=== PATIENT | male | born 1950 | race Two or more races ===

== ENCOUNTER 2017-12-24 23:07 | Inpatient (IN) | payer MEDICARE, MEDICAID ==
[2017-12-24 23:10] VITALS: BMI 41.9
--- NOTE | 2017-12-24 23:22 | ED PDOC ---
Arrival/HPI - General Chief Complaint: Chest Pain Time Seen by Provider: 12/24/17 23:08 Historian: Patient - History of Present Illness Narrative History of Present Illness (Text): 12/24/17 23:22 67 year old male whose past medical history include CAD, Coronary Artery bypass , multiple stents, hypertension, and diabetes, presents to the emergency department with complaints of chest and upper back pain that began today. Patient appears to be having some component of worsening chest discomfort with movement.Pt. with intermittent cough whitish sputum.States hx. of vertebral herniated discs.Patient denies any history of trauma, fever, chills, shortness of breath, nausea, abdominal pain, vomiting, diarrhea, neck pain, leg pain, headache, dizziness, or any other complaints. Time/Duration: Other (today ) Symptom Onset: Sudden Symptom Course: Unchanged Activities at Onset: Light Context: Home Past Medical History - Provider Review Nursing Documentation Reviewed: Yes - Cardiac Hx Cardiac Disorders: Yes Hx Hypertension: Yes - Pulmonary Hx Respiratory Disorders: No - Endocrine/Metabolic Hx Diabetes Mellitus Type 1: Yes - Psychiatric Hx Substance Use: No - Surgical History Hx Cardiac Catheterization: Yes Hx Coronary Artery Bypass Graft: Yes Hx Coronary Stent: Yes (7) Hx Orthopedic Surgery: Yes - Anesthesia Hx Anesthesia: Yes Family/Social History - Physician Review Nursing Documentation Reviewed: Yes Family/Social History: No Known Family HX Smoking Status: Heavy Smoker > 10 Cigarettes Daily Hx Alcohol Use: No Hx Substance Use: No Allergies/Home Meds Allergies/Adverse Reactions: Allergies No Known Allergies Allergy (Unverified 12/24/17 23:21) Home Medications: Home Meds Medication Instructions Recorded Confirmed Albuterol HFA [Ventolin HFA 90 2 puff IH [id number] 12/24/17 12/24/17 mcg/actuation (8 g)] Bisoprolol [Zebeta] 10 mg PO DAILY 12/24/17 12/24/17 Carvedilol [Coreg] 12.5 mg PO DAILY 12/24/17 12/24/17 Clopidogrel [Plavix] 75 mg PO DAILY 12/24/17 12/24/17 Dutasteride [Avodart] 0.5 mg PO DAILY 12/24/17 12/24/17 Gabapentin [Neurontin] 300 mg PO DAILY 12/24/17 12/24/17 Glimepiride [amaRYL] 4 mg PO DAILY 12/24/17 12/24/17 MetFORMIN [glucoPHAGE] 1,000 mg PO DAILY 12/24/17 12/24/17 Sulindac 150 mg PO DAILY 12/24/17 12/24/17 Tamsulosin [Flomax] 0.4 mg PO DAILY 12/24/17 12/24/17 Umeclidinium [place] [Incruse 62.5 mcg PO DAILY 12/24/17 12/24/17 Ellipta] Valsartan [Diovan] 160 mg PO DAILY 12/24/17 12/24/17 Review of Systems - Physician Review All systems were reviewed & negative as marked: Yes - Review of Systems Constitutional: absent: Fevers, Other (Chills) Respiratory: absent: SOB Cardiovascular: Chest Pain Gastrointestinal: absent: Abdominal Pain, Diarrhea, Nausea, Vomiting Musculoskeletal: Back Pain. absent: Neck Pain, Other (leg pain) Neurological: absent: Headache, Dizziness Physical Exam Vital Signs Reviewed: Yes Vital Signs Temp Pulse Resp BP Pulse Ox 12/25/17 01:20 97.9 F 85 16 136/82 100 12/24/17 23:32 134/75 12/24/17 23:20 95 H 16 154/75 H 99 12/24/17 23:14 97 H 20 134/75 98 Blood Pressure: Normal Pulse: Regular Respiratory Rate: Normal Appearance: Positive for: Well-Appearing, Non-Toxic, Comfortable Pain Distress: None Mental Status: Positive for: Alert and Oriented X 3 - Systems Exam Head: Present: Atraumatic, Normocephalic Pupils: Present: PERRL Extroacular Muscles: Present: EOMI Conjunctiva: Present: Normal Mouth: Present: Moist Mucous Membranes Neck: Present: Normal Range of Motion Respiratory/Chest: Present: Clear to Auscultation, Good Air Exchange. No: Respiratory Distress, Accessory Muscle Use, Tender to Palpation Cardiovascular: Present: Regular Rate and Rhythm, Normal S1, S2. No: Murmurs Abdomen: Present: Normal Bowel Sounds. No: Tenderness, Distention, Peritoneal Signs Back: Present: Normal Inspection Upper Extremity: Present: Normal Inspection. No: Cyanosis, Edema Lower Extremity: Present: Normal Inspection. No: Edema, CALF TENDERNESS Neurological: Present: GCS=15, CN II-XII Intact, Speech Normal Skin: Present: Warm, Dry, Normal Color. No: Rashes Psychiatric: Present: Alert, Oriented x 3, Normal Insight, Normal Concentration Medical Decision Making ED Course and Treatment: 12/24/17 23:22 Impression: 67 year old male presents complaining of chest and back pain that began today. Plan: -- EKG -- Labs -- Chest X-ray -- O2 Nasal Cannula -- Urinalysis -- Reassess and disposition Progress Notes: EKG shows NSR at 96 BPM with PVC. Inferior and anterior juarez infarct. Age undetermined. Interpreted by me. 12/25/17 00:16 CXR Impression: As read by me, cardiomegaly. No acute processes. EXAM: CT Angiography Chest With Intravenous Contrast Dictated and Authenticated by: Clifton Bajwa MD 12/25/2017 2:19 AM IMPRESSION: 1. There is no evidence for central pulmonary embolus. The segmental and subsegmental branch pulmonary arteries are degraded by motion artifact. 2. Mild parabronchial cuffing, which can be seen with bronchitis, reactive airway disease or viral pneumonitis versus mild failure. Bibasilar right mid lobe and lingula nonspecific infiltrates are present, consistent with atelectasis or pneumonia. 12/25/17 02:[address] Dick who is aware and agrees with the plan. Accepts patient into her service with Dr. Simental under consults. - Lab Interpretations Lab Results: 12/24/17 23:30 12/24/17 23:30 Lab Results 12/24/17 23:30: Sodium 141, Potassium 4.5, Chloride 100, Carbon Dioxide 27, Anion Gap 18, BUN 14, Creatinine 0.7 L, Est GFR ( Amer) > 60, Est GFR ( Non-Af Amer) > 60, Random Glucose 115 H, Calcium 9.6, Total Bilirubin 0.4, AST 25, ALT 39, Alkaline Phosphatase 79, Lactate Dehydrogenase 440, Total Creatine Kinase 72, Troponin I < 0.01, Total Protein 7.3, Albumin 4.1, Globulin 3.2, Albumin/Globulin Ratio 1.3 12/24/17 23:30: PT 11.8, INR 1.03, APTT 30.3 12/24/17 23:30: WBC 12.2 H, RBC 4.27, Hgb 13.6 L, Hct 40.3 L, MCV 94.4, MCH 31.9 , MCHC 33.7, RDW 13.4, Plt Count 300, MPV 9.8, Gran % 75.9 H, Lymph % (Auto) 13.9 L, [place] % (Auto) 8.0 H, Eos % (Auto) 2.0, Baso % (Auto) 0.2, Gran # 9.25 H , Lymph # (Auto) 1.7, [place] # (Auto) 1.0 H, Eos # (Auto) 0.3, Baso # (Auto) 0.02 12/24/17 00:15: Urine Color Yellow, Urine Appearance Clear, Urine pH 6.0, Ur Specific [place] 1.020, Urine Protein Negative, Urine Glucose (UA) Negative, Urine Ketones Negative, Urine Blood Trace-lysed H, Urine Nitrate Negative, Urine Bilirubin Negative, Urine Urobilinogen 0.2, Ur Leukocyte Esterase Negative , Urine RBC 1 - 3, Urine WBC 0 - 2, Ur Epithelial Cells 0 - 2, Urine Bacteria Few I have reviewed the lab results: Yes - RAD Interpretation Radiology Orders: 12/24/17 23:22 CHEST PORTABLE [RAD] Stat 12/25/17 00:17 ANGIO CHEST PE PROTOCOL [CT] Stat - EKG Interpretation Interpreted by ED Physician: Yes Type: 12 lead EKG - Medication Orders Current Medication Orders: Ceftriaxone Sodium (Rocephin 1 Gram Ivpb) 1 gm in 100 mls @ 200 mls/hr IV ONCE STA PRN Reason: Protocol Stop: 12/25/17 03:02 Azithromycin (Zithromax 500mg In Ns) 500 mg in 250 mls @ 166.667 mls/hr IV STAT STA PRN Reason: Protocol Stop: 12/25/17 04:02 Discontinued Medications Morphine Sulfate (Morphine) 4 mg IVP STAT STA Stop: 12/24/17 23:32 Last Admin: 12/24/17 23:35 Dose: 4 mg [facility] Pain Assessment Document 12/24/17 23:35 MS (Rec: 12/24/17 23:36 [place] [id number] Pain Reassessment Is this a pain reassessment? No Sleep Is patient sleeping during reassessment? No Presence of Pain Presence of Pain Yes Pain Scale Used Pain Scale Used Numeric Location Upper or Lower Lower Pain Location Body Site Chest Back Description Description Constant Intensity of Pain at present 10 Pain Behavior Moaning Guarding Facial Grimacing IVP Administration Document 12/24/17 23:35 MS (Rec: 12/24/17 23:36 [place] [facility] [id number] Charges for Administration # of IVP Administrations 1 Re-Assess: SARAH Pain Assessment Document 12/25/17 00:27 MS (Rec: 12/25/17 00:27 MS [id number] Pain Reassessment Is this a pain reassessment? Yes Sleep Is patient sleeping during reassessment? No Presence of Pain Presence of Pain No - Scribe Statement The provider has reviewed the documentation as recorded by the Scribe Soledad Mayfield Provider Scribe Attestation: All medical record entries made by the Scribe were at my direction and personally dictated by me. I have reviewed the chart and agree that the record accurately reflects my personal performance of the history, physical exam, medical decision making, and the department course for this patient. I have also personally directed, reviewed, and agree with the discharge instructions and disposition. Disposition/Present on Arrival - Present on Arrival Any Indicators Present on Arrival: No History of DVT/PE: No History of Uncontrolled Diabetes: No Urinary Catheter: No History of Decub. Ulcer: No History Surgical Site Infection Following: None - Disposition Have Diagnosis and Disposition been Completed?: Yes Diagnosis: Chest pain, Back pain, Pneumonia Disposition: HOSPITALIZED Disposition Time: 02:35 Patient Plan: Admission Patient Problems: Current Active Problems Problem Status Onset Back pain Acute Chest pain Acute Pneumonia Acute Condition: STABLE Discharge Instructions (ExitCare): Chest Pain (ED) Referrals: Diego Gustafson MD [Primary Care Provider] - Follow up with primary Forms: [employer] (Japanese)
[2017-12-24] MEDS ORDERED: Morphine 4 mg/ml ISec IVP STA (23:31)
[2017-12-24] MEDS ORDERED: Morphine 4 mg/ml ISec ONE (23:35)
[2017-12-24 23:39] LABS: BASO # 0.02 K/mm3 (0.0-2.0); BASO % 0.2 % (0.0-3.0); EOS # 0.3 (0.0-0.7); GRAN # 9.25 (1.4-6.5); GRAN % 75.9 % (50.0-68.0); HEMOGLOBIN 13.6 g/dL (14.0-18.0); LYMPH # 1.7 (1.2-3.4); LYMPH % 13.9 % (22.0-35.0); MEAN CELL VOLUME 94.4 fl (80.0-105.0); MEAN CORPUSCULAR HEMOGLOBIN 31.9 pg (25.0-35.0); MEAN CORPUSCULAR HGB CONC 33.7 g/dl (31.0-37.0); MEAN PLATELET VOLUME 9.8 fl (7.0-11.0); RBC 4.27 10^6/uL (3.5-6.1); RED CELL DISTRIBUTION WIDTH 13.4 % (11.5-14.5); WHITE BLOOD COUNT 12.2 10^3/ul (4.5-11.0)
[2017-12-24 23:46] LABS: ALB/GLOB RATIO 1.3 (1.1-1.8); ALBUMIN 4.1 g/dL (3.0-4.8); ALT/SGPT 39 U/L (7-56); AST/SGOT 25 U/L (17-59); BLOOD UREA NITROGEN 14 mg/dL (7-21); CALCIUM 9.6 mg/dL (8.4-10.5); GFR AFRICAN-AMERICAN > 60; GFR NON-AFRICAN AMERICAN > 60
[2017-12-24 23:57] LABS: TROPONIN I < 0.01 ng/mL
[2017-12-25 00:22] LABS: INR 1.03 (0.93-1.08); PROTHROMBIN TIME 11.8 SECONDS (9.4-12.5)
[2017-12-25 00:23] LABS: PARTIAL THROMBOPLASTIN TIME 30.3 Seconds (25.1-36.5)
[2017-12-25] MEDS ORDERED: Iodixanol 320 MG/ML 100 ML BOTTLE IV ONE (00:33)
[2017-12-25 00:41] LABS: URINE BILIRUBIN NEGATIVE (NEGATIVE); URINE BLOOD TRACE-LYSED (NEGATIVE); URINE GLUCOSE (UA) NEGATIVE (NEGATIVE); URINE LEUKOCYTE ESTERASE NEGATIVE Leu/uL (NEGATIVE); URINE NITRATE NEGATIVE (NEGATIVE); URINE PROTEIN NEGATIVE mg/dL (<30 mg/dL); URINE UROBILINOGEN 0.2 E.U./dL (<1 E.U./dL)
[2017-12-25 00:55] LABS: URINE APPEARANCE CLEAR (CLEAR); URINE COLOR YELLOW (YELLOW)
[2017-12-25 01:07] LABS: URINE BACTERIA FEW (NEG); URINE EPITHELIAL CELLS 0 - 2 /hpf (0-5); URINE WBC 0 - 2 /hpf (0-6)
--- NOTE | 2017-12-25 02:19 | CT ---
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 All CT scans at this facility use one or more dose reduction techniques, viz.: automated exposure control; ma/kV adjustment per patient size (including targeted exams where dose is matched to indication; i.e. head); or iterative reconstruction technique. 1078 images are submitted. MIP reconstructed images were created and reviewed. Coronal and sagittal reformatted images were created and reviewed. CONTRAST: 100 mL of visipaque 320 administered intravenously. COMPARISON: DX - CHEST PORTABLE 2017-12-24 23:27 FINDINGS: Artifacts: Limited due to motion and misregistration artifacts.Limited due to pulsation artifact. Pulmonary arteries: There is no evidence for central pulmonary embolus. The segmental and subsegmental branch pulmonary arteries are degraded by motion artifact and heterogeneous enhancement. Aorta: The aorta demonstrates calcified plaque and is mildly ectatic but normal in caliber. No thoracic aortic aneurysm. 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 Lungs: Mild parabronchial cuffing, which can be seen with bronchitis, reactive airway disease or viral pneumonitis versus mild failure. Bibasilar right mid lobe and lingula nonspecific infiltrates are present, consistent with atelectasis or pneumonia. 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 COPD. No mass. Pleural space: Unremarkable. No significant effusion. No pneumothorax. Heart: Cardiomegaly. Mediastinum: Small hiatal hernia. Thyroid: Mild enlargement of thyroid gland without focal thyroid nodules. Bones/joints: There are sternal wires consistent with previous sternotomy incision. Degenerative changes within the spine. No acute fracture. No dislocation. Multilevel vacuum degenerative disc disease. Soft tissues: Bilateral gynecomastia. Lymph nodes: Right hilar lymph nodes. Liver: Enlarged fatty liver. Adrenals: Nonspecific left adrenal gland thickening. Normal right adrenal gland. Stomach and bowel: There is stool like appearance to the distal small bowel. This may represent slow transit. Moderate amount of stool is seen in the colon. IMPRESSION: 1. There is no evidence for central pulmonary embolus. The segmental and subsegmental branch pulmonary arteries are degraded by motion artifact. 2. Mild parabronchial cuffing, which can be seen with bronchitis, reactive airway disease or viral pneumonitis versus mild failure. Bibasilar right mid lobe and lingula nonspecific infiltrates are present, consistent with atelectasis or pneumonia.
[2017-12-25] MEDS ORDERED: cefTRIAXone 1 gm 1 GM/100 ML BAG IV STA (02:33)
[2017-12-25] MEDS ORDERED: Azithromycin 500MG/NS 250ml 500 MG/250 ML BAG IV STA (02:33)
[2017-12-25] MEDS ORDERED: HYDROmorphone 0.5 mg/0.5 ml ISec IVP STA (03:19)
--- NOTE | 2017-12-25 08:33 | CARD ---
APPROVED REPORT EKG Measurement Heart [id number] <Conclusion> Sinus rhythm with PVCs IMI, age unknown PRWP NSSTW changes No change
--- NOTE | 2017-12-25 09:54 | RAD ---
HISTORY: Chest pain COMPARISON: Correlation made with subsequent CTA chest. FINDINGS: LUNGS: Mild bibasilar atelectasis. . PLEURA: No significant pleural effusion identified, no pneumothorax apparent. Sternotomy wires. Cardiomegaly. Aorta ectatic and uncoiled. CARDIOVASCULAR: Sternotomy wires. Cardiomegaly. Aorta ectatic and uncoiled. OSSEOUS STRUCTURES: No significant abnormalities. VISUALIZED UPPER ABDOMEN: Normal. OTHER FINDINGS: None. IMPRESSION: Mild bibasilar atelectasis. Cardiomegaly.
[2017-12-25] MEDS ORDERED: Non Formulary Medication (Bisoprolol [Zebeta] 10 mg) PO SCH ×2 (10:00)
[2017-12-25] MEDS ORDERED: Non Formulary Medication (Valsartan [Diovan] 160 MG) PO SCH (10:00)
[2017-12-25] MEDS ORDERED: SULINDAC 150 MG PO SCH (10:00)
[2017-12-25] MEDS: SULINDAC 150 MG PO SCH (10:30)
[2017-12-25] MEDS ORDERED: Oxycodone/Acetaminophen 5/325 mg Tab PO PRN (10:41)
[2017-12-25] MEDS: Naproxen 550 mg Tab PO SCH ×2 (11:17→17:48)
[2017-12-25] MEDS: Insulin Lispro (HUMAlog) HIGH Coverage SC SCH ×2 (16:40→21:41)
--- NOTE | 2017-12-25 17:35 | CT ---
PROCEDURE: CT scan of the brain dated 12/25/2017. HISTORY: Weakness COMPARISON: No prior study available for comparison TECHNIQUE: Axial computed tomography images were obtained through the head/brain without intravenous contrast. Radiation dose: Total exam DLP = 889.15 mGy-cm. This CT exam was performed using one or more of the following dose reduction techniques: Automated exposure control, adjustment of the mA and/or kV according to patient size, and/or use of iterative reconstruction technique. FINDINGS: HEMORRHAGE: No acute parenchymal, subarachnoid or extra-axial hemorrhage. BRAIN: There may be some minimal chronic periventricular white matter ischemic changes. . No evidence of obvious parenchymal nor extra-axial mass or collection. VENTRICLES: No obstructive hydrocephalus. CALVARIUM: Calvarium appears grossly intact PARANASAL SINUSES: Unremarkable as visualized. No significant inflammatory changes. MASTOID AIR CELLS: Unremarkable as visualized. No inflammatory changes. OTHER FINDINGS: None. IMPRESSION: No evidence of acute intracranial hemorrhage. Suspect minimal chronic periventricular white matter ischemic changes.
--- NOTE | 2017-12-25 19:33 | CON ---
DATE: 12/25/2017 LOCATION: Room 372, bed 2. REASON FOR CONSULTATION: Coronary artery disease, history of coronary artery bypass surgery with back pain, hypertension, diabetes, obesity, history of vertebral herniated disc, history of sleep apnea. HISTORY OF PRESENT ILLNESS: A 67-year-old obese male admitted with the history that he is having severe pain on the back on the right side. He is very uncomfortable sitting. He also has marked tenderness on the back. Patient is very uncomfortable sitting and denies any chest pain, denies shortness of breath, denies any nausea or vomiting. Denies any prior history of external chest pain. He is known to have coronary artery bypass surgery, hypertension, diabetes, obesity, history of vertebral herniated disk, sleep apnea. Patient sees Dr. 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 He follows with him regularly. PAST MEDICAL HISTORY: Positive for coronary artery disease, CABG in 1998, hypertension, diabetes, obesity, history of vertebral herniated disk, sleep apnea. PERSONAL HISTORY: He smokes 15 cigarettes a day. Denies drinking. ALLERGIES: DENIES ANY ALLERGIES. FAMILY HISTORY: Positive for coronary artery disease. HOME MEDICATIONS: Included Neurontin 300 mg daily, Plavix 75 mg daily, Coreg 12.5 mg daily, Zebeta 10 mg daily, Avodart 0.5 mg p.o. daily, Flomax 0.4 mg daily, sulindac 150 mg p.o. daily, metformin 1000 mg p.o. daily, Amaryl 4 mg daily, Diovan 160 mg p.o. daily. REVIEW OF SYSTEMS: All the systems are reviewed, positive mentioned in the history, otherwise negative. PHYSICAL EXAMINATION VITAL SIGNS: Blood pressure 123/77, respirations 20, pulse 86, temperature 98.7. HEENT: Head is normocephalic. Eyes: Pupils are normal. Conjunctivae are normal. Nose and throat are normal. NECK: JVP low. Carotids are equal. THORAX: AP diameter normal. LUNGS: Clear. CARDIOVASCULAR: S1 and S2. ABDOMEN: Soft. No tenderness. No organomegaly. EXTREMITIES: No clubbing. No cyanosis. LABORATORY DATA: WBC 12.2, hemoglobin 13.6, hematocrit 40.3, platelet 300. Sodium 141, potassium 4.5, BUN 14, creatinine 0.7, random glucose 115. AST and ALT normal. Troponin less than 0.01. Total protein 7.3, albumin 4.51. EKG showed sinus rhythm, PVC, poor progression of R and V leads, nonspecific ST-T changes. Troponin less than 0.01. DIAGNOSES: Back pain probably musculoskeletal, coronary artery disease, history of coronary artery bypass surgery in 1998, hypertension, diabetes, obesity, history of vertebral herniated disk, sleep apnea. PLAN: Advised the patient to stop smoking and lose weight. In the meantime, continue present medicine glimepiride 4 mg daily, carvedilol 12.5 daily, Flomax 0.4 daily, metformin 1000 mg daily, Neurontin 300 mg p.o. daily, Plavix 75 daily, sulindac 150 mg p.o. daily, Diovan 160 mg p.o. daily. Advised the patient to lose weight, stop smoking. [facility], the patient follows with Dr. Gonzales in [place] and present cardiac status seemed to be stable. We will follow with you. Tammy Tamayo MD
--- NOTE | 2017-12-26 03:39 | HP ---
HISTORY OF PRESENT ILLNESS: The patient is 67-year-old [place] male who came to the Emergency Room because of left-sided chest pain and right upper back pain. The patient stated the pain was so severe that he could not even move, so he called the ambulance and he was brought to emergency room. Denied any shortness, no dizziness. No nausea or vomiting. No fever, no chills. No hemoptysis. No hematemesis. PAST MEDICAL HISTORY: The patient has a significant past medical history of open heart surgery in 1989. After that, he had multiple angioplasties. His doctor is [place]. He also has a significant past medical history of hypertension, non-insulin dependent diabetes, morbid obesity, chronic kidney disease. PAST SURGICAL HISTORY: Significant for bilateral cataract extractions. ALLERGIES: He is not allergic to any medication. MEDICATIONS AT HOME: He is on gabapentin 300 daily, nebulizer treatment, Avodart 0.5 daily, Plavix 75 daily, Coreg 12.5 daily, bisoprolol 10 mg daily, includes Ellipta, Flomax 0.4 daily, Sulindac, metformin 1000 daily, glimepiride 4 mg daily and valsartan 160 daily. SOCIAL HISTORY: Is a heavy smoker. He is a . His because of complications of diabetes. REVIEW OF SYSTEMS: Significant for right upper and mid back pain radiating towards the front of the chest wall. PHYSICAL EXAMINATION: GENERA: He is awake, alert, oriented, communicative. VITAL SIGNS: Afebrile, pulse 76, respirations 18, blood pressure 132/67. LUNGS: Bilateral fair airflow. No rhonchi or crackle. HEART: S1, S2 audible. ABDOMEN: Soft, nontender. No rebound or guarding. NEUROLOGICALLY: He is awake, alert, oriented, able to communicate, sitting in chair, uncomfortable, in bed because of pain. LABORATORY EXAMINATION: WBC is 12.2, hemoglobin 13.6, hematocrit 40.3, platelet of 300. PT 11.8, INR 1.03, PTT 30.3. Chemistry; sodium 141, potassium 4.5, chloride 100, CO2 27, BUN 14, creatinine 0.7, blood sugar 162. CT scan of the chest was done that shows no evidence for pulmonary embolism; however, he has reactive airway disease. ASSESSMENT/PLAN: Morbid obesity, coronary artery disease, chest pain - seems to be musculoskeletal, upper back pain, uncontrolled diabetes, hypertension and hyperlipidemia. So, the plan is we will start the patient on Naprosyn, Percocet as needed. We will resume his usual medication. Start him on muscle relaxer. He has been started on Rocephin and Zithromax and we will monitor his blood sugar. We will reevaluate the patient. Beto Dick MD
--- NOTE | 2017-12-26 06:25 | CP.PCM.PN ---
Subjective - Date & Time of Evaluation Date of Evaluation: 12/26/17 Time of Evaluation: 06:22 - Subjective Subjective: Patient was seen because nurse calls and tells that patient had shown 1* degree block, [place] type I and II blocks on monitor. Monitor showed frequent PVC's. Patient has no complaints now. Denies having history of any condition of heart rate or rhythm. States that he may have been told that he has something like low heart rate but nor sure about it. Denies chest pain, sob, nausea, sweating , palpitation. Medical record was reviewed. This 67 year old male was admitted with left sided chest pain and upper back pain. Has PMH of HTN,CAD,multiple angioplasties,open heart surgery, NIDDM, morbid obesity, CKD. Objective - Vital Signs/Intake and Output Vital Signs (last 24 hours): Temp Pulse Resp BP Pulse Ox 98.4 F 80 18 131/73 96 12/26/17 00:01 12/26/17 02:00 12/26/17 00:01 12/26/17 00:01 12/26/17 00:01 Intake and Output: 12/25/17 12/26/17 18:59 06:59 Intake Total 240 Balance 240 - Medications Medications: Current Medications Carvedilol (Coreg) 12.5 mg PO DAILY [facility] Last Admin: 12/25/17 10:08 Dose: 12.5 mg Clopidogrel Bisulfate (Plavix) 75 mg PO DAILY [facility] Last Admin: 12/25/17 10:08 Dose: 75 mg Cyclobenzaprine HCl (Flexeril) 5 mg PO TID [facility] Last Admin: 12/25/17 17:48 Dose: 5 mg Gabapentin (Neurontin) 300 mg PO DAILY [facility] PRN Reason: Protocol Last Admin: 12/25/17 10:08 Dose: 300 mg Glimepiride (Amaryl) 4 mg PO DAILY [facility] Last Admin: 12/25/17 10:08 Dose: 4 mg Insulin Human Lispro (Humalog High) 0 units SC ACHS [facility] PRN Reason: Protocol Last Admin: 12/25/17 21:41 Dose: Not Given Losartan Potassium (Cozaar) 100 mg PO DAILY [facility] Metformin HCl (Glucophage) 1,000 mg PO BID [facility] Last Admin: 12/25/17 17:48 Dose: 1,000 mg Naproxen (Anaprox Ds) 550 mg PO BID [facility] Last Admin: 12/25/17 17:48 Dose: 550 mg Non-Formulary Medication (Bisoprolol [Zebeta]) 10 mg PO DAILY [facility] Last Admin: 12/25/17 10:28 Dose: Not Given Non-Formulary Medication (Sulindac [Sulindac]) 150 mg PO DAILY [facility] Last Admin: 12/25/17 10:30 Dose: Not Given Non-Formulary Medication (Dutasteride [Avodart]) 0.5 mg PO DAILY [facility] Last Admin: 12/25/17 10:30 Dose: Not Given Tamsulosin HCl (Flomax) 0.4 mg PO DAILY [facility] Last Admin: 12/25/17 10:08 Dose: 0.4 mg - Labs Labs: PT 11.8 SECONDS (9.4-12.5) 12/24/17 23:30 INR 1.03 (0.93-1.08) 12/24/17 23:30 APTT 30.3 Seconds (25.1-36.5) 12/24/17 23:30 Micro Results 12/25/17 02:41 Blood Blood Culture - Preliminary NO GROWTH AFTER 24 HOURS 12/25/17 02:41 Blood Blood Culture - Preliminary NO GROWTH AFTER 24 HOURS Most Recent Lab Values WBC 12.2 10^3/ul (4.5-11.0) H 12/24/17 23:30 RBC 4.27 10^6/uL (3.5-6.1) 12/24/17 23:30 Hgb 13.6 g/dL (14.0-18.0) L 12/24/17 23:30 Hct 40.3 % (42.0-52.0) L 12/24/17 23:30 MCV 94.4 fl (80.0-105.0) 12/24/17 23:30 MCH 31.9 pg (25.0-35.0) 12/24/17 23:30 MCHC 33.7 g/dl (31.0-37.0) 12/24/17 23:30 RDW 13.4 % (11.5-14.5) 12/24/17 23:30 Plt Count 300 10^3/uL (120.0-450.0) 12/24/17 23:30 MPV 9.8 fl (7.0-11.0) 12/24/17 23:30 Gran % 75.9 % (50.0-68.0) H 12/24/17 23:30 Lymph % (Auto) 13.9 % (22.0-35.0) L 12/24/17 23:30 [place] % (Auto) 8.0 % (1.0-6.0) H 12/24/17 23:30 Eos % (Auto) 2.0 % (1.5-5.0) 12/24/17 23:30 Baso % (Auto) 0.2 % (0.0-3.0) 12/24/17 23:30 Gran # 9.25 (1.4-6.5) H 12/24/17 23:30 Lymph # (Auto) 1.7 (1.2-3.4) 12/24/17 23:30 [place] # (Auto) 1.0 (0.1-0.6) H 12/24/17 23:30 Eos # (Auto) 0.3 (0.0-0.7) 12/24/17 23:30 Baso # (Auto) 0.02 K/mm3 (0.0-2.0) 12/24/17 23:30 PT 11.8 SECONDS (9.4-12.5) 12/24/17 23:30 INR 1.03 (0.93-1.08) 12/24/17 23:30 APTT 30.3 Seconds (25.1-36.5) 12/24/17 23:30 Sodium 141 mmol/L (132-148) 12/24/17 23:30 Potassium 4.5 mmol/L (3.6-5.0) 12/24/17 23:30 Chloride 100 mmol/L (98-107) 12/24/17 23:30 Carbon Dioxide 27 mmol/L (21-33) 12/24/17 23:30 Anion Gap 18 (10-20) 12/24/17 23:30 BUN 14 mg/dL (7-21) 12/24/17 23:30 Creatinine 0.7 mg/dl (0.8-1.5) L 12/24/17 23:30 Est GFR ( Amer) > 60 12/24/17 23:30 Est GFR (Non-Af Amer) > 60 12/24/17 23:30 POC Glucose (mg/dL) 158 mg/dL (65-110) H 12/25/17 21:33 Random Glucose 115 mg/dL (70-110) H 12/24/17 23:30 Calcium 9.6 mg/dL (8.4-10.5) 12/24/17 23:30 Total Bilirubin 0.4 mg/dL (0.2-1.3) 12/24/17 23:30 AST 25 U/L (17-59) 12/24/17 23:30 ALT 39 U/L (7-56) 12/24/17 23:30 Alkaline Phosphatase 79 U/L (38-126) 12/24/17 23:30 Lactate Dehydrogenase 440 U/L (333-699) 12/24/17 23:30 Total Creatine Kinase 72 U/L (35-230) 12/24/17 23:30 Troponin I < 0.01 ng/mL 12/24/17 23:30 Total Protein 7.3 g/dL (5.8-8.3) 12/24/17 23:30 Albumin 4.1 g/dL (3.0-4.8) 12/24/17 23:30 Globulin 3.2 gm/dL 12/24/17 23:30 Albumin/Globulin Ratio 1.3 (1.1-1.8) 12/24/17 23:30 Urine Color Yellow (YELLOW) 12/24/17 00:15 Urine Appearance Clear (CLEAR) 12/24/17 00:15 Urine pH 6.0 (4.7-8.0) 12/24/17 00:15 Ur Specific [place] 1.020 (1.005-1.035) 12/24/17 00:15 Urine Protein Negative mg/dL (<30 mg/dL) 12/24/17 00:15 Urine Glucose (UA) Negative mg/dL (NEGATIVE) 12/24/17 00:15 Urine Ketones Negative mg/dL (NEGATIVE) 12/24/17 00:15 Urine Blood Trace-lysed (NEGATIVE) H 12/24/17 00:15 Urine Nitrate Negative (NEGATIVE) 12/24/17 00:15 Urine Bilirubin Negative (NEGATIVE) 12/24/17 00:15 Urine Urobilinogen 0.2 E.U./dL (<1 E.U./dL) 12/24/17 00:15 Ur Leukocyte Esterase Negative Van/uL (NEGATIVE) 12/24/17 00:15 Urine RBC 1 - 3 /hpf (0-2) 12/24/17 00:15 Urine WBC 0 - 2 /hpf (0-6) 12/24/17 00:15 Ur Epithelial Cells 0 - 2 /hpf (0-5) 12/24/17 00:15 Urine Bacteria Few (NEG) 12/24/17 00:15 - Constitutional Appears: Well, No Acute Distress - Head Exam Head Exam: ATRAUMATIC, NORMAL INSPECTION, NORMOCEPHALIC Additional comments: Obese person , not in acute distress. - Eye Exam Eye Exam: Normal appearance - ENT Exam ENT Exam: Normal External Ear Exam - Neck Exam Neck Exam: Normal Inspection - Respiratory Exam Respiratory Exam: NORMAL BREATHING PATTERN - Cardiovascular Exam Cardiovascular Exam: absent: JVD - GI/Abdominal Exam GI & Abdominal Exam: absent: Distended - Rectal Exam Rectal Exam: Deferred - Exam Additional comments: Deferred. - Extremities Exam Extremities Exam: Normal Inspection. absent: Pedal Edema - Back Exam Back Exam: NORMAL INSPECTION - Neurological Exam Neurological Exam: Alert, Awake, Oriented x3 - Psychiatric Exam Psychiatric exam: Normal Affect, Normal Mood - Skin Skin Exam: Normal Color Assessment and Plan - Assessment and Plan (Free Text) Assessment: 1* degree heart block. Mobitz I, Mobitz II block, not sustained. PVC. Bradycardia. Chest pain. R/O MD. HTN. CAD. NIDDM. Morbid obesity. Borderline anemia. Leukocytosis. Plan: EKG stat. BMP, Magnesium , Phosphorous levels, Troponin levels stat. Troponin q6h x2. EKG q6h x 2. Hold Coreg. Awaiting cardiology consultation. If Mobitz II sustained or develops 3* block , will transfer to CCU, pacemaker.
[2017-12-26 07:10] LABS: BLOOD UREA NITROGEN 19 mg/dL (7-21); CALCIUM 9.1 mg/dL (8.4-10.5); GFR AFRICAN-AMERICAN > 60; GFR NON-AFRICAN AMERICAN > 60; MAGNESIUM 1.8 mg/dL (1.7-2.2)
[2017-12-26 07:19] LABS: TROPONIN I < 0.01 ng/mL
[2017-12-26 07:21] VITALS: O2SAT 97
[2017-12-26] MEDS: Insulin Lispro (HUMAlog) HIGH Coverage SC SCH ×4 (07:56→22:13)
[2017-12-26] MEDS: SULINDAC 150 MG PO SCH (09:35)
[2017-12-26] MEDS: Naproxen 550 mg Tab PO SCH ×2 (09:37→18:25)
[2017-12-26] MEDS ORDERED: SULINDAC 150 MG PO SCH (10:00)
[2017-12-26] MEDS ORDERED: Non Formulary Medication (Bisoprolol [Zebeta] 10 mg) PO SCH (10:00)
[2017-12-26] MEDS ORDERED: TraMADol/Apap 37.5/325 mg Tab PO PRN (11:42)
[2017-12-26 11:49] LABS: TROPONIN I < 0.01 ng/mL
[2017-12-26 13:17] LABS: BASO # 0.01 K/mm3 (0.0-2.0); BASO % 0.1 % (0.0-3.0); EOS # 0.2 (0.0-0.7); EOS % 2.4 % (1.5-5.0); GRAN # 7.09 (1.4-6.5); GRAN % 71.7 % (50.0-68.0); LYMPH # 1.6 (1.2-3.4); LYMPH % 16.2 % (22.0-35.0); MEAN CELL VOLUME 96.6 fl (80.0-105.0); MEAN CORPUSCULAR HEMOGLOBIN 31.6 pg (25.0-35.0); MEAN CORPUSCULAR HGB CONC 32.7 g/dl (31.0-37.0); MEAN PLATELET VOLUME 10.4 fl (7.0-11.0); MONO % 9.6 % (1.0-6.0); RBC 4.11 10^6/uL (3.5-6.1); RED CELL DISTRIBUTION WIDTH 13.4 % (11.5-14.5); WHITE BLOOD COUNT 9.9 10^3/ul (4.5-11.0)
[2017-12-26] MEDS ORDERED: Dextrose 50% SYRINGE Inj (50 ml) ONE (13:49)
[2017-12-26] MEDS ORDERED: Absorbable Gelatin Sponge Size 100 ONE (13:55)
[2017-12-26] MEDS ORDERED: MethylPREDNISolone Depo 40 mg/ml Inj IM ONE (15:29)
[2017-12-26] MEDS ORDERED: Bupivacaine 0.5% Inj(30mL) IJ ONE (15:29)
--- NOTE | 2017-12-26 15:29 | PN ---
DATE: 12/26/2017 LOCATION: Patient in room 372, bed 2. REASON FOR CONSULTATION: Coronary artery disease, history of coronary artery bypass surgery with severe back pain, hypertension, diabetes, obesity, history of herniated vertebral disk, history of sleep apnea. SUBJECTIVE: Patient still complaining of severe back pain. Patient gets exacerbation with movement. Denies any chest pain, shortness of breath, or palpitation. Patient follows with Dr. Gonzales in [place] for his cardiac problems. PHYSICAL EXAMINATION: VITAL SIGNS: Blood pressure 132/62, respiratory rate20, pulse 84, temperature 98. HEENT: Head is normocephalic. Eyes: Pupils are normal. Conjunctivae are normal. Nose and throat are normal. NECK: JVP low. Carotids are equal. THORAX: AP diameter normal. LUNGS: Clear. CARDIOVASCULAR: S1 and S2. ABDOMEN: Soft. No tenderness. No organomegaly. Bowel sounds normal. EXTREMITIES: No clubbing. No cyanosis. LABORATORY DATA: WBC 12.2, hemoglobin 13.6, hematocrit 40.3, and platelets 300. Sodium 142, potassium 4.3. BUN 90, creatinine 0.7. Random sugar 141. Calcium, phosphorous, magnesium normal. Troponin x2 negative. DIAGNOSES: Severe back pain probably musculoskeletal, coronary artery disease, history of coronary artery bypass surgery in 1998, hypertension, diabetes, obesity, history of vertebral herniated disk, sleep apnea. PLAN: Patient still smoke, told him to stop smoking and loose weight. Clinically cardiac status stable. Back pain not cardiac in origin. Patient on naproxen 550 b.i.d., Coreg 12.5 daily, losartan 100 mg daily, metformin, gabapentin, Plavix 75 daily, ceftriaxone 1 g IV daily, azithromycin 500 mg IV daily. Continue . Tammy Tamayo MD
[2017-12-26 18:34] LABS: TROPONIN I < 0.01 ng/mL
--- NOTE | 2017-12-26 21:34 | CARD ---
APPROVED REPORT EKG Measurement Heart [id number] ID [id number] <Conclusion> Sinus rhythm with 1st degree AV block Inferior infarct, age undetermined Abnormal ECG
--- NOTE | 2017-12-26 23:04 | PN ---
DATE: SUBJECTIVE: The patient is 67 years old, was complaining of left mid chest pain, hurts on touching, unable to move around because of the pain. The patient was given Percocet that makes him hallucinate, he was confused, disoriented. So it was on hold. On examination today, he still complains of intractable right mid chest pain posteriorly on the right side that hinders his right upper extremity movement, unable to change his position in the bed. OBJECTIVE: VITAL SIGNS: He is afebrile. Pulse 84, respirations 20, blood pressure 132/62. LUNGS: Bilateral fair air flow. No rhonchi or crackle. HEART: S1, S2 audible. ABDOMEN: Soft, nontender. No rebound, no guarding. NEUROLOGIC: The patient is awake, alert, oriented, communicative. LABORATORY DATA: WBC is 9.9, hemoglobin 13.0, hematocrit 39.7, platelet 279. Chemistry: Blood sugar is 111. ASSESSMENT AND PLAN: 1. Right mid chest discomfort posteriorly, probably musculoskeletal with spasm of trapezius muscle. 2. Morbid obesity. 3. Coronary artery disease, status post angioplasty. 4. Insulin dependent diabetes. 5. Hypertension. PLAN: We will continue patient on Mobic 15 mg daily. Continue on his oral hypoglycemic. He is currently on Naprosyn, we will continue that. He is getting muscle relaxers and we will monitoring his blood sugar. Dr. Pardo has been contacted for possible trigger point injections. Beto Dick MD
--- NOTE | 2017-12-27 01:59 | CON ---
DATE: 12/26/2017 ORTHOPEDIC CONSULT LOCATION: Room 372, bed 2. REASON FOR CONSULT: Patient is complaining of posterior chest pain on the vertebral border of the scapula and he said it feels like it is a radiating pain from his neck to the shoulder to the scapula on the right side for about 2 years. He was told by another doctor he has osteoarthritis of the spine, but there is no recent x-ray of the cervical spine. He can move the shoulder quite well and the neck is stiff and the range of motion is limited because of what looks like underlying arthritis. He is having tenderness along that vertebral border of the scapula of the right shoulder, so inject him with Depo-Medrol and Marcaine and hopefully get some kind of relief of his trigger point pain and I will order an x-ray of the cervical spine and right shoulder area. FINAL DIAGNOSES: Possible radiculopathy from cervical spine osteoarthritis versus rhomboid bursitis of his right shoulder. Andrea Pardo DO
[2017-12-27 07:16] LABS: BASO # 0.01 K/mm3 (0.0-2.0); BASO % 0.1 % (0.0-3.0); EOS # 0.3 (0.0-0.7); GRAN # 6.08 (1.4-6.5); GRAN % 70.6 % (50.0-68.0); HEMOGLOBIN 13.2 g/dL (14.0-18.0); LYMPH # 1.5 (1.2-3.4); LYMPH % 17.6 % (22.0-35.0); MEAN CELL VOLUME 93.8 fl (80.0-105.0); MEAN CORPUSCULAR HEMOGLOBIN 31.5 pg (25.0-35.0); MEAN CORPUSCULAR HGB CONC 33.6 g/dl (31.0-37.0); MONO # 0.8 (0.1-0.6); MONO % 8.7 % (1.0-6.0); RBC 4.19 10^6/uL (3.5-6.1); RED CELL DISTRIBUTION WIDTH 12.9 % (11.5-14.5); WHITE BLOOD COUNT 8.6 10^3/ul (4.5-11.0)
[2017-12-27 08:01] VITALS: BP 162/81; PULSE 83; RESP 21; TEMP 97.6
[2017-12-27] MEDS: Insulin Lispro (HUMAlog) HIGH Coverage SC SCH ×2 (08:02→12:11)
[2017-12-27 08:05] LABS: ALB/GLOB RATIO 1.1 (1.1-1.8); ALBUMIN 3.5 g/dL (3.0-4.8); ALT/SGPT 24 U/L (7-56); AST/SGOT 24 U/L (17-59); BLOOD UREA NITROGEN 15 mg/dL (7-21); CALCIUM 9.1 mg/dL (8.4-10.5); GFR AFRICAN-AMERICAN > 60; GFR NON-AFRICAN AMERICAN > 60; MAGNESIUM 1.7 mg/dL (1.7-2.2)
[2017-12-27] MEDS: SULINDAC 150 MG PO SCH (09:35)
[2017-12-27] MEDS: Naproxen 550 mg Tab PO SCH (09:35)
[2017-12-27] MEDS ORDERED: Azithromycin 500MG/NS 250ml 500 MG/250 ML BAG IVPB SCH (10:00)
[2017-12-27] MEDS ORDERED: cefTRIAXone 1 gm 1 GM/100 ML BAG IVPB SCH (10:00)
--- NOTE | 2017-12-27 10:01 | RAD ---
PROCEDURE: Radiographs of the Right Shoulder HISTORY: rt shou pain COMPARISON: No prior. FINDINGS: BONES: Normal. No fracture. JOINTS: Normal. Glenohumeral and acromioclavicular joints preserved. No osteoarthritis. SOFT TISSUES: Normal. OTHER FINDINGS: None. IMPRESSION: Normal radiographs of the right shoulder.
--- NOTE | 2017-12-27 10:03 | RAD ---
PROCEDURE: Cervical Spine Radiographs. HISTORY: Pain. COMPARISON: None. FINDINGS: BONES: Alignment maintained. No fracture. Dens Intact. DISC SPACES: Normal. SOFT TISSUES: Normal. No prevertebral soft tissue swelling. OTHER FINDINGS: There is a right-sided vascular stent IMPRESSION: No acute findings
--- NOTE | 2017-12-27 17:06 | PN ---
DATE: 12/27/2017 REASON FOR CONSULTATION AND FOLLOWUP: Coronary artery disease; history of coronary artery bypass surgery; severe back pain; hypertension; hyperlipidemia; history of herniated vertebral disk; history of sleep apnea, improved with ibuprofen, pain improved with NSAID. SUBJECTIVE: The patient denies any chest pain, shortness of breath, or any palpitation. Got ibuprofen, significantly improved. PHYSICAL EXAMINATION: VITAL SIGNS: Temperature afebrile, heart rate 97, blood pressure 122/62. HEENT: PERRLA. Extraocular muscles intact. NECK: Supple. No carotid bruit. No thyromegaly. CHEST: Clear to auscultation. HEART: S1 and S2, regular. ABDOMEN: Soft. EXTREMITIES: Clubbing and cyanosis negative. LABORATORY DATA: WBC 8.6, hemoglobin 13.2, hematocrit 39.3, and platelet count 280. Chemistry shows sodium 142, potassium 4.0, chloride 105, carbon dioxide 27, anion gap of 15. BUN 15 and creatinine 0.5. Total protein 6.9, albumin 3.5, albumin and globulin ratio 1.1. IMPRESSION: Chest pain, atypical so far, no evidence of acute myocardial infarction, troponin remains flat x4; musculoskeletal pain, improved significantly with ibuprofen; history of coronary artery disease; history of coronary artery bypass graft, being followed by Dr. Gonzales; history of bypass in 1998; hypertension; obesity, and herniated intervertebral disk. RECOMMENDATIONS: Continue NSAID. Continue Coreg. Continue losartan. Continue metformin, aspirin, and Plavix. We will discontinue telemetry. Once cleared from medical point of view, patient can be discharged. From cardiology point of view, okay to be discharged. Followed by Dr. Gonzales according to the patient. Thank you Dr. Gonzales for providing us the opportunity in taking care of patient, Enrique Mayberry Tammy Simental MD
--- NOTE | 2017-12-28 10:34 | DS ---
HISTORY OF PRESENT ILLNESS: Patient is 67 years old who came to Emergency Room because of left-sided chest pain going through his chest and going towards the back. Patient was evaluated by Dr. Pardo, had trigger point injection, doing well, wants to go home. PHYSICAL EXAMINATION VITAL SIGNS: He is afebrile. Pulse 83, respirations 21, blood pressure 162/81. LUNGS: Bilateral good airflow. No rhonchi or crackles. HEART: S1, S2 audible. ABDOMEN: Soft, obese, nontender. No rebound. No guarding. NEUROLOGIC: Patient is awake and alert, communicative ,ambulatory. LABORATORY DATA: WBC is 8.6, hemoglobin 13, hematocrit 39, platelet 280,000. Chemistry: Sodium 142, potassium 4.1, chloride 105, CO2 27, BUN 15, creatinine 0.5, blood sugar of 120. Blood cultures are negative. ASSESSMENT AND PLAN 1. Musculoskeletal chest pain, status post x-ray of the shoulder and cervical spine both are unremarkable. 2. Morbid obesity. 3. Hypertension. 4. Coronary artery disease, status post angioplasty. 5. Non-insulin dependent diabetes. PLAN: Patient will be sent home on Mobic for another week and Ultracet as needed and he will follow up with his PMD, Dr. Diego Gustafson. Beto Dick MD
== END 2017-12-27 15:00 | disposition home or self-care (01) | DRG 313 ==
LOC: ED 23:07 → ERH 12-25 02:35 → 3RSO 12-25 04:21 → OBSVTOIN 12-26 12:56 → 5RNO 12-26 19:34
PROVIDERS: ADMIT Internal Medicine; ATTEND Internal Medicine
DX: R07.89 Other chest pain (principal); E11.22 Type 2 diabetes mellitus with diabetic chronic kidney disease; Z68.41 Body mass index [BMI] 40.0-44.9, adult; E66.01 Morbid (severe) obesity due to excess calories; I12.9 Hypertensive chronic kidney disease with stage 1 through stage 4 chronic kidney disease, or unspecified chronic kidney disease; N18.9 Chronic kidney disease, unspecified; I25.10 Atherosclerotic heart disease of native coronary artery without angina pectoris; E78.5 Hyperlipidemia, unspecified; G47.30 Sleep apnea, unspecified; M47.9 Spondylosis, unspecified; Z79.4 Long term (current) use of insulin; F17.210 Nicotine dependence, cigarettes, uncomplicated; Z95.1 Presence of aortocoronary bypass graft; Z98.41 Cataract extraction status, right eye; Z98.42 Cataract extraction status, left eye

== ENCOUNTER 2018-02-16 08:31 | Observation (INO) | payer MEDICARE, MEDICAID ==
[2018-02-16 09:07] VITALS: BMI 34.7
[2018-02-16] MEDS ORDERED: Sodium Chloride 0.9% 500 ML IV STA (09:14)
[2018-02-16] MEDS ORDERED: Morphine 4 mg/ml ISec IVP STA (09:14)
--- NOTE | 2018-02-16 09:29 | ED PDOC ---
Arrival/HPI - General Chief Complaint: Back Pain Time Seen by Provider: 02/16/18 09:06 Historian: Patient - History of Present Illness Narrative History of Present Illness (Text): 02/16/18 09:31 67-year-old male with a history of diabetes and hypertension with prior history of open heart surgery presents today with a sudden onset of back pain radiating to the abdomen. Patient states at 7:30 this morning he went to go sit on the toilet bowl and suddenly developed a sharp stabbing pain in the mid upper back radiating around to the chest. Patient states was associated with shortness of breath. Patient denies abdominal pain. Denies nausea or vomiting. Patient denies dizziness or weakness. Patient denies fevers or chills. Patient states he is a smoker and has been coughing for a while. Patient with a prior history of pneumonia in the past. Patient denies bladder or bowel incontinence. Patient denies numbness weakness or tingling in the extremities. Patient denies pain radiating into the abdomen. Denies headaches dizziness or weakness. No other complaints. Past Medical History - Provider Review Nursing Documentation Reviewed: Yes - Travel History Have you recently traveled outside [place] w/in the past 3 mons?: No - Infectious Disease Hx of Infectious Diseases: None - Tetanus Immunization Tetanus Immunization: Unknown - Cardiac Hx Cardiac Disorders: Yes Hx CA: Yes (1998) Hx Hypertension: Yes Other/Comment: 7 cardiac stents, double bypass - Pulmonary Hx Respiratory Disorders: Yes Hx Asthma: Yes Hx Chronic Obstructive Pulmonary Disease (COPD): Yes Hx Sleep Apnea: Yes - Neurological Hx Neurological Disorder: No - HEENT Hx HEENT Disorder: Yes Hx Cataracts: Yes (Bilateral Cataract surgery) Hx Glaucoma: Yes Other/Comment: LASER SURGERY FOR GLAUCOMA. SURGERY FOR TRAUMA TO LEFT EAR - Renal Hx Renal Disorder: No - Endocrine/Metabolic Hx Endocrine Disorders: Yes Hx Diabetes Mellitus Type 1: Yes - Hematological/Oncological Hx Blood Disorders: No - Integumentary Hx Dermatological Disorder: No - Musculoskeletal/Rheumatological Hx Musculoskeletal Disorders: Yes Hx Herniated Disk: Yes (Scheduled for surgery next week) - Gastrointestinal Hx Gastrointestinal Disorders: Yes Other/Comment: HX: 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 - Genitourinary/Gynecological Hx Genitourinary Disorders: Yes Hx Prostate Problems: Yes (BPH) Other/Comment: Takes Flomax - Psychiatric Hx Psychophysiologic Disorder: Yes Hx Substance Use: No - Surgical History Hx Cataract Extraction: Yes Hx Coronary Stent: Yes Hx Musculoskeletal Surgery: Yes (01/07/16-LEFT CARPAL TUNNEL RELEASE) Hx Open Heart Surgery: Yes Other/Comment: left eardrum - Anesthesia Hx Anesthesia: Yes Hx Anesthesia Reactions: No Hx Malignant Hyperthermia: No - Suicidal Assessment Feels Threatened In Home Enviroment: No Family/Social History - Physician Review Nursing Documentation Reviewed: Yes Family/Social History: Unknown Family HX Smoking Status: Heavy Smoker > 10 Cigarettes Daily Hx Alcohol Use: No Hx Substance Use: No Allergies/Home Meds Allergies/Adverse Reactions: Allergies No Known Allergies Allergy (Verified 02/16/18 09:11) Home Medications: Home Meds Medication Instructions Recorded Confirmed Albuterol HFA [Ventolin HFA 90 PRN 01/05/18 mcg/actuation (8 g)] Aspirin [Ecotrin] 81 mg PO DAILY 01/05/18 02/16/18 Clopidogrel [Plavix] 1 tab DAILY 01/05/18 02/16/18 MetFORMIN [glucOPHAGE] 1,000 mg PO BID 01/05/18 02/16/18 Metoprolol Succinate 25 mg PO DAILY 01/05/18 02/16/18 Tamsulosin [Flomax] 0.4 mg PO DAILY 01/05/18 02/16/18 Valsartan 80 mg PO DAILY 01/05/18 02/16/18 Review of Systems - Review of Systems Constitutional: absent: Fatigue, Fevers Respiratory: SOB, Cough Cardiovascular: Chest Pain. absent: Palpitations Gastrointestinal: absent: Abdominal Pain, Constipation, Diarrhea, Nausea, Vomiting Genitourinary Male: absent: Dysuria, Frequency, Hematuria, Urinary Output Changes Musculoskeletal: Back Pain. absent: Arthralgias, Neck Pain Skin: absent: Rash, Pruritis Neurological: absent: Headache, Dizziness Psychiatric: absent: Anxiety, Depression, Suicidal Ideation Physical Exam Vital Signs Reviewed: Yes Vital Signs Temp Pulse Resp BP Pulse Ox 02/16/18 16:27 79 16 140/78 99 02/16/18 14:20 78 18 145/79 96 02/16/18 12:01 88 20 127/71 98 02/16/18 09:02 97.7 F 92 H 18 148/73 98 Temperature: Afebrile Blood Pressure: Normal Pulse: Regular Respiratory Rate: Normal Appearance: Positive for: Well-Appearing, Non-Toxic, Comfortable Pain Distress: None Mental Status: Positive for: Alert and Oriented X 3 - Systems Exam Head: Present: Atraumatic Mouth: Present: Moist Mucous Membranes Neck: Present: Normal Range of Motion Respiratory/Chest: Present: Clear to Auscultation, Good Air Exchange, Decreased Breath Sounds. No: Respiratory Distress, Accessory Muscle Use, Retracting, Rhonchi, Tachypneic Cardiovascular: Present: Regular Rate and Rhythm. No: Tachycardic Abdomen: No: Tenderness, Distention, Peritoneal Signs, Rebound, Guarding Back: Present: Normal Inspection. No: Midline Tenderness, Paraspinal Tenderness Upper Extremity: Present: Normal ROM Lower Extremity: Present: Normal ROM, Neurovascularly Intact, Capillary Refill < 2 s Neurological: Present: GCS=15, Speech Normal Skin: Present: Warm, Dry, Normal Color. No: Rashes Psychiatric: Present: Alert, Oriented x 3 Medical Decision Making ED Course and Treatment: 02/16/18 09:49 67yr old male with htn,dm, hx of cabg with mid upper back pain radiating to chest. pt given morphine for pain pt given NS iv bolus cbc 11.6 cmp glucose; 205 trop: wnl ua cxr; wnl EKG shows sinus rhythm with associated PVCs at 86 bpm normal axis no ST elevations ct dissection protocol; FINDINGS: CT ANGIOGRAPHY OF THE CHEST WITH & WITHOUT CONTRAST: ABDOMINAL AORTA:: There is a 4.4 cm infrarenal abdominal aortic aneurysm. There is a mild amount of mural thrombus. There is no dissection. No evidence of hemorrhage AORTA (CHEST AND ABDOMEN): There is a 4.4 cm infrarenal abdominal aortic aneurysm. There is a mild amount of mural thrombus. There is no dissection The celiac axis, superior mesenteric artery, inferior mesenteric artery and the renal arteries are widely patent. The pelvic arteries are unremarkable. LUNGS: Clear. No nodule, mass or consolidation. MEDIASTINUM: Unremarkable. Normal caliber aorta and pulmonary arterial trunk. No aortic dissection. Normal size heart. LYMPH NODES: Unremarkable. PLEURA: Unremarkable. No pneumothorax. No pleural fluid. BONES: Unremarkable. OTHER FINDINGS: None. CT ANGIOGRAPHY OF THE ABDOMEN AND PELVIS WITH CONTRAST: LIVER: Fatty infiltration of the liver GALLBLADDER AND BILE DUCTS: Unremarkable. PANCREAS: Unremarkable. No gross lesion or ductal dilatation. SPLEEN: Unremarkable. ADRENALS: Unremarkable. No mass. KIDNEYS AND URETERS: Unremarkable. No hydronephrosis. No solid mass. VASCULATURE: As above STOMACH AND BOWEL: Unremarkable. No obstruction. No gross mural thickening. APPENDIX: Normal appendix. PERITONEUM: Unremarkable. No free fluid. No free air. LYMPH NODES: Unremarkable. No enlarged lymph nodes. BLADDER: Unremarkable. REPRODUCTIVE: Unremarkable. BONES: No acute fracture. OTHER FINDINGS: None. IMPRESSION: There is a 4.4 cm infrarenal abdominal aortic aneurysm. There is a mild amount of mural thrombus. There is no dissection 02/16/18 13:53 pt reassessment; pt feeling better after medications; vitals stable. discussed all results with patient in depth; case discussed with dr. hull; would like patient admitted to the hospitalist service Case discussed with ; accepts observational status admission to tele; pt with hx of DM, Cabg, HTN with chest pain. impression; chest pain, infrarenal aortic aneurysm, back pain Admitted observational status to telemetry 02/16/18 13:56 - Lab Interpretations Lab Results: 02/16/18 09:30 02/16/18 09:30 Lab Results 02/16/18 09:30: WBC 11.6 H D, RBC 4.59, Hgb 14.5, Hct 41.9 L, MCV 91.3, MCH 31.6 , MCHC 34.6, RDW 12.8, Plt Count 353, MPV 9.9, Gran % 79.4 H, Lymph % (Auto) 11.1 L, Glades % (Auto) 7.5 H, Eos % (Auto) 1.9, Baso % (Auto) 0.1, Gran # 9.23 H , Lymph # (Auto) 1.3, Gl[place] # (Auto) 0.9 H, Eos # (Auto) 0.2, Baso # (Auto) 0.01 02/16/18 09:30: Sodium 142, Potassium 4.6, Chloride 100, Carbon Dioxide 29, Anion Gap 17, BUN 12, Creatinine 0.6 L, Est GFR ( Amer) > 60, Est GFR ( Non-Af Amer) > 60, Random Glucose 205 H, Calcium 9.8, Total Bilirubin 0.5, AST 45, ALT 38, Alkaline Phosphatase 77, Lactate Dehydrogenase 468, Total Creatine Kinase 44, Troponin I < 0.01, Total Protein 7.8, Albumin 4.1, Globulin 3.7, Albumin/Globulin Ratio 1.1, Triglycerides 111, Cholesterol 177, LDL Cholesterol Direct 128, HDL Cholesterol 31, Lipase 70 - RAD Interpretation Radiology Orders: 02/16/18 09:14 ANGIOGRAPHY DISECTION PROTOCOL [CT] Stat CHEST PORTABLE [RAD] Stat - Medication Orders Current Medication Orders: Aspirin (Ecotrin) 81 mg PO DAILY KIAH Clopidogrel Bisulfate (Plavix) 75 mg PO DAILY [facility] Cyclobenzaprine HCl (Flexeril) 5 mg PO TID PRN PRN Reason: Muscle spasm Hydralazine HCl (Apresoline) 10 mg IVP Q8H PRN PRN Reason: Systolic Blood Pressure Ibuprofen (Motrin Tab) 400 mg PO Q6H PRN PRN Reason: Pain, moderate (4-7) Insulin Human Lispro (Humalog High) 0 units SC ACHS KIAH PRN Reason: Protocol Last Admin: 02/16/18 16:30 Dose: Losartan Potassium (Cozaar) 50 mg PO DAILY KIA[facility] Metoprolol Succinate (Toprol Xl) 25 mg PO DAILY [facility] Nicotine (Nicoderm Cq) 1 patch TD DAILY PRN PRN Reason: URGE TO SMOKE Tamsulosin HCl (Flomax) 0.4 mg PO DAILY KIAH Discontinued Medications Sodium Chloride (Sodium Chloride 0.9%) 500 mls @ 999 mls/hr IV .Q31M STA Stop: 02/16/18 09:44 Last Admin: 02/16/18 09:48 Dose: 999 mls/hr eMAR Start Stop Document 02/16/18 09:48 KAE (Rec: 02/16/18 09:48 KAE [id number]) Intravenous Solution Start Date 02/16/18 Start Time 08:40 End Date 02/16/18 End time 09:10 Total Infusion Time 30 Morphine Sulfate (Morphine) 4 mg IVP STAT STA Stop: 02/16/18 09:15 Last Admin: 02/16/18 09:47 Dose: 4 mg MAR Pain Assessment Document 02/16/18 09:47 KAE (Rec: 02/16/18 09:47 KAE [email or web address]) Pain Reassessment Is this a pain reassessment? No Sleep Is patient sleeping during reassessment? No Presence of Pain Presence of Pain Yes Pain Scale Used Pain Scale Used Numeric IVP Administration Document 02/16/18 09:47 KAE (Rec: 02/16/18 09:47 KAE [id number]) Charges for Administration # of IVP Administrations 1 Disposition/Present on Arrival - Present on Arrival Any Indicators Present on Arrival: Yes History of DVT/PE: Yes History of Uncontrolled Diabetes: Yes Urinary Catheter: No History of Decub. Ulcer: No History Surgical Site Infection Following: None - Disposition Have Diagnosis and Disposition been Completed?: Yes Diagnosis: Chest pain, Upper back pain, Aneurysm of infrarenal abdominal aorta Disposition: HOSPITALIZED Disposition Time: 13:53 Patient Plan: Observation, Telemetry Patient Problems: Current Active Problems Problem Status Onset Aneurysm of infrarenal abdominal aorta Acute Chest pain Acute Upper back pain Acute Condition: FAIR
[2018-02-16 09:45] LABS: BASO # 0.01 K/mm3 (0.0-2.0); BASO % 0.1 % (0.0-3.0); EOS # 0.2 (0.0-0.7); EOS % 1.9 % (1.5-5.0); GRAN # 9.23 (1.4-6.5); GRAN % 79.4 % (50.0-68.0); HEMOGLOBIN 14.5 g/dL (14.0-18.0); LYMPH # 1.3 (1.2-3.4); LYMPH % 11.1 % (22.0-35.0); MEAN CELL VOLUME 91.3 fl (80.0-105.0); MEAN CORPUSCULAR HEMOGLOBIN 31.6 pg (25.0-35.0); MEAN CORPUSCULAR HGB CONC 34.6 g/dl (31.0-37.0); MEAN PLATELET VOLUME 9.9 fl (7.0-11.0); MONO # 0.9 (0.1-0.6); MONO % 7.5 % (1.0-6.0); RBC 4.59 10^6/uL (3.5-6.1); RED CELL DISTRIBUTION WIDTH 12.8 % (11.5-14.5); WHITE BLOOD COUNT 11.6 10^3/ul (4.5-11.0)
[2018-02-16 09:54] LABS: ALB/GLOB RATIO 1.1 (1.1-1.8); ALBUMIN 4.1 g/dL (3.0-4.8); CALCIUM 9.8 mg/dL (8.4-10.5); GFR AFRICAN-AMERICAN > 60; GFR NON-AFRICAN AMERICAN > 60; LIPASE 70 U/L (23-300)
[2018-02-16 09:59] LABS: ALT/SGPT 38 U/L (7-56); AST/SGOT 45 U/L (17-59); BLOOD UREA NITROGEN 12 mg/dL (7-21)
[2018-02-16 10:05] LABS: TROPONIN I < 0.01 ng/mL
--- NOTE | 2018-02-16 11:00 | RAD ---
HISTORY: chest pain COMPARISON: No prior. FINDINGS: LUNGS: No active pulmonary disease. PLEURA: No significant pleural effusion identified, no pneumothorax apparent. CARDIOVASCULAR: Mild cardiomegaly OSSEOUS STRUCTURES: Sternal wires VISUALIZED UPPER ABDOMEN: Normal. OTHER FINDINGS: None. IMPRESSION: No active disease.
[2018-02-16] MEDS ORDERED: Iodixanol 320 mg/ml 150 ml Bottle IV ONE (11:12)
--- NOTE | 2018-02-16 13:08 | CT ---
PROCEDURE: CT Angiography Chest, Abdomen and Pelvis with and without intravenous contrast HISTORY: back pain/chest pain COMPARISON: None. TECHNIQUE: Contiguous axial images of the chest, abdomen and pelvis were obtained in the phase of aortic enhancement. A noncontrast enhanced CT of the chest was also obtained to evaluate for possible intramural thrombus. Coronal and sagittal reformats were generated. This CT exam was performed using one or more of the following dose reduction techniques: Automated exposure control, adjustment of the mA and/or kV according to patient size, and/or use of iterative reconstruction technique. Intravenous contrast dose: 150 cc of Omni 350 Radiation dose: Total exam DLP = 1742 mGy-cm. FINDINGS: CT ANGIOGRAPHY OF THE CHEST WITH & WITHOUT CONTRAST: ABDOMINAL AORTA:: There is a 4.4 cm infrarenal abdominal aortic aneurysm. There is a mild amount of mural thrombus. There is no dissection. No evidence of hemorrhage AORTA (CHEST AND ABDOMEN): There is a 4.4 cm infrarenal abdominal aortic aneurysm. There is a mild amount of mural thrombus. There is no dissection The celiac axis, superior mesenteric artery, inferior mesenteric artery and the renal arteries are widely patent. The pelvic arteries are unremarkable. LUNGS: Clear. No nodule, mass or consolidation. MEDIASTINUM: Unremarkable. Normal caliber aorta and pulmonary arterial trunk. No aortic dissection. Normal size heart. LYMPH NODES: Unremarkable. PLEURA: Unremarkable. No pneumothorax. No pleural fluid. BONES: Unremarkable. OTHER FINDINGS: None. CT ANGIOGRAPHY OF THE ABDOMEN AND PELVIS WITH CONTRAST: LIVER: Fatty infiltration of the liver GALLBLADDER AND BILE DUCTS: Unremarkable. PANCREAS: Unremarkable. No gross lesion or ductal dilatation. SPLEEN: Unremarkable. ADRENALS: Unremarkable. No mass. KIDNEYS AND URETERS: Unremarkable. No hydronephrosis. No solid mass. VASCULATURE: As above STOMACH AND BOWEL: Unremarkable. No obstruction. No gross mural thickening. APPENDIX: Normal appendix. PERITONEUM: Unremarkable. No free fluid. No free air. LYMPH NODES: Unremarkable. No enlarged lymph nodes. BLADDER: Unremarkable. REPRODUCTIVE: Unremarkable. BONES: No acute fracture. OTHER FINDINGS: None. IMPRESSION: There is a 4.4 cm infrarenal abdominal aortic aneurysm. There is a mild amount of mural thrombus. There is no dissection
--- NOTE | 2018-02-16 14:36 | CP.PCM.HP ---
<Lucio Loza - Last Filed: 02/16/18 14:18> History of Present Illness - History of Present Illness History of Present Illness: Subjective: CC: Back pain and chest pain. HPI: Patient is a 67-year-old male with a past history of HTN, HPL, DM, CAD, COPD, aortic aneurysm, BPH and chronic lower back pain who presents to the ED for evaluation and treatment of back pain and chest pain. States that the pain began without any provoking event this morning while using the bathroom. Pain originates in the mid thoracic region between the scapula and radiates into the retrosternal region. Characterizes the pain as being sharp in nature and is rated a 10/10. Assocaited with SOB and diaphoresis. Denies fever, chills, abdominal pain, N/V, diarrhea, constipation, and urinary symptoms. 12 point ROS negative except as indicated in HPI PMHx: HTN, HPL, DM, CAD, COPD, aortic aneurysm, BPH and chronic lower back pain PSHx: open heart surgery Allergies: NKDA Social Hx: denies ETOH use, 1/2 ppd for 20+ years, denies illicit drug use Family Hx: father- CAD, RI, DM Medications: please see MAR PMD: Dr. Diego Gustafson in Pharmacy: [facility] Physical Examination: - Head Exam Head Exam: ATRAUMATIC, NORMOCEPHALIC - Constitutional Appears: Non-toxic, No Acute Distress - Head Exam Head Exam: ATRAUMATIC, NORMOCEPHALIC - Eye Exam Eye Exam: EOMI - ENT Exam ENT Exam: Mucous Membranes Moist - Neck Exam Neck exam: Positive for: Full Rom - Respiratory Exam Respiratory Exam: decreased breath sounds bilaterally - Cardiovascular Exam Cardiovascular Exam: +S1, +S2. absent: Systolic Murmur - GI/Abdominal Exam GI & Abdominal Exam: Normal Bowel Sounds, Soft, Non tender to palpation absent : Distended, Firm, Mass, Rebound, Rigid - MSK MSK Exam: point tenderness thoracic back t9-t10 region midscapular region - Extremities Exam Extremities exam: Positive for: normal inspection. Negative for: calf tenderness, pedal edema - Neurological Exam Neurological exam: Alert, Oriented x3 - Psychiatric Exam Psychiatric exam: Normal Affect, Normal Mood - Skin Skin Exam: Intact, Normal Color, Warm Assessment and Plan: Patient is a 67-year-old male with a past history of HTN, HPL, DM, CAD, COPD, aortic aneurysm, BPH and chronic lower back pain who was admitted for evaluation and treatment of back pain and chest pain. Chest Pain/Back Pain - EKG reviewed and appreciated- sinus rhythm with occasional PVC, HR 86bpm, QTc 435ms - there is a 4.4 cm infrarenal abdominal aortic aneurysm. There is a mild amount of mural thrombus. There is no dissection. - troponins negative x 1, will trend - vascular surgery consulted- Dr. Martinez - cardiology consulted- Dr. Simental MSK Pain - motrin prn Hx of CAD, RI - continue home aspirin and plavix Hx of Dm - Blood glucoses reviewed, trended, and appreciated - hold home metformin - accuchecks ACHS - ISS lispro high - A1c ordered and pending Hx of HTN - blood pressures reviewed and trended - contniue home valsartan Hx of HPL - lipid panel ordered and pending HX of COPD - duonebs prn SOB Hx of BPH - continue home flomax Tobacco Abuse - smoking cessation advised, patient educated on dangers of continued tobacco use - nicotine patch offered Patient seen, case reviewed with, and plan approved by attending physician, Dr. Barnett. Present on Admission - Present on Admission Any Indicators Present on Admission: No Past Patient History - Infectious Disease Hx of Infectious Diseases: None - Tetanus Immunizations Tetanus Immunization: Unknown - Past Medical History & Family History Past Medical History?: Yes - Past Social History Smoking Status: Heavy Smoker > 10 Cigarettes Daily - CARDIAC Hx Cardiac Disorders: Yes Hx Heart Attack: Yes (1998) Hx Hypertension: Yes Other/Comment: 7 cardiac stents, double bypass - PULMONARY Hx Respiratory Disorders: Yes Hx Asthma: Yes Hx Chronic Obstructive Pulmonary Disease (COPD): Yes Hx Sleep Apnea: Yes - NEUROLOGICAL Hx Neurological Disorder: No - HEENT Hx HEENT Problems: Yes Hx Cataracts: Yes (Bilateral Cataract surgery) Hx Glaucoma: Yes Other/Comment: LASER SURGERY FOR GLAUCOMA. SURGERY FOR TRAUMA TO LEFT EAR - RENAL Hx Chronic Kidney Disease: No - ENDOCRINE/METABOLIC Hx Endocrine Disorders: Yes Hx Diabetes Mellitus Type 1: Yes - HEMATOLOGICAL/ONCOLOGICAL Hx Blood Disorders: No - INTEGUMENTARY Hx Dermatological Problems: No - MUSCULOSKELETAL/RHEUMATOLOGICAL Hx Musculoskeletal Disorders: Yes Hx Herniated Disk: Yes (Scheduled for surgery next week) - GASTROINTESTINAL Hx Gastrointestinal Disorders: Yes Other/Comment: HX: 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 - GENITOURINARY/GYNECOLOGICAL Hx Genitourinary Disorders: Yes Hx Prostate Problems: Yes (BPH) Other/Comment: Takes Flomax - PSYCHIATRIC Hx Psychophysiologic Disorder: Yes Hx Substance Use: No - SURGICAL HISTORY Hx Cataract Extraction: Yes Hx Coronary Stent: Yes Hx Musculoskeletal Surgery: Yes (01/07/16-LEFT CARPAL TUNNEL RELEASE) Hx Open Heart Surgery: Yes Other/Comment: left eardrum - ANESTHESIA Hx Anesthesia: Yes Hx Anesthesia Reactions: No Hx Malignant Hyperthermia: No Meds Allergies/Adverse Reactions: Allergies Allergy/AdvReac Type Severity Reaction Status Date / Time No Known Allergies Allergy Verified 02/16/18 09:11 Results - Vital Signs Recent Vital Signs: Last Vital Signs Temp 97.7 F 02/16/18 09:02 Pulse 88 02/16/18 12:01 Resp 20 02/16/18 12:01 BP 127/71 02/16/18 12:01 Pulse Ox 98 02/16/18 12:01 - Labs Result Diagrams: 02/16/18 09:30 02/16/18 09:30 Labs: Laboratory Results - last 24 hr 02/16/18 02/16/18 09:30 09:30 WBC 11.6 H D RBC 4.59 Hgb 14.5 Hct 41.9 L MCV 91.3 MCH 31.6 MCHC 34.6 RDW 12.8 Plt Count 353 MPV 9.9 Gran % 79.4 H Lymph % (Auto) 11.1 L Henderson % (Auto) 7.5 H Eos % (Auto) 1.9 Baso % (Auto) 0.1 Gran # 9.23 H Lymph # (Auto) 1.3 Henderson # (Auto) 0.9 H Eos # (Auto) 0.2 Baso # (Auto) 0.01 Sodium 142 Potassium 4.6 Chloride 100 Carbon Dioxide 29 Anion Gap 17 BUN 12 Creatinine 0.6 L Est GFR ( Amer) > 60 Est GFR (Non-Af Amer) > 60 Random Glucose 205 H Calcium 9.8 Total Bilirubin 0.5 AST 45 ALT 38 Alkaline Phosphatase 77 Lactate Dehydrogenase 468 Total Creatine Kinase 44 Troponin I < 0.01 Total Protein 7.8 Albumin 4.1 Globulin 3.7 Albumin/Globulin Ratio 1.1 Lipase 70 <Nirav Barnett - Last Filed: 02/17/18 17:00> Results - Vital Signs Recent Vital Signs: Last Vital Signs Temp 98.1 F 02/17/18 12:00 Pulse 81 02/17/18 12:00 Resp 21 02/17/18 12:00 BP 161/93 H 02/17/18 12:00 Pulse Ox 94 L 02/17/18 00:01 - Labs Result Diagrams: 02/17/18 03:15 02/17/18 03:15 Labs: Laboratory Results - last 24 hr 02/16/18 02/16/18 02/16/18 16:15 17:21 21:27 WBC RBC Hgb Hct MCV MCH MCHC RDW Plt Count MPV Gran % Lymph % (Auto) Henderson % (Auto) Eos % (Auto) Baso % (Auto) Gran # Lymph # (Auto) Henderson # (Auto) Eos # (Auto) Baso # (Auto) Sodium Potassium Chloride Carbon Dioxide Anion Gap BUN Creatinine Est GFR ( Amer) Est GFR (Non-Af Amer) POC Glucose (mg/dL) 191 H Random Glucose Calcium Total Bilirubin AST ALT Alkaline Phosphatase Lactate Dehydrogenase 438 273 L Total Creatine Kinase 37 36 Troponin I < 0.01 < 0.01 Total Protein Albumin Globulin Albumin/Globulin Ratio 02/16/18 02/17/18 02/17/18 21:30 03:15 03:15 WBC 8.4 D RBC 4.34 Hgb 13.8 L Hct 39.6 L MCV 91.2 MCH 31.8 MCHC 34.8 RDW 12.7 Plt Count 314 MPV 9.5 Gran % 67.7 Lymph % (Auto) 19.4 L Henderson % (Auto) 10.0 H Eos % (Auto) 2.7 Baso % (Auto) 0.2 Gran # 5.71 Lymph # (Auto) 1.6 Henderson # (Auto) 0.8 H Eos # (Auto) 0.2 Baso # (Auto) 0.02 Sodium 140 Potassium 4.1 Chloride 98 Carbon Dioxide 32 Anion Gap 14 BUN 11 Creatinine 0.6 L Est GFR ( Amer) > 60 Est GFR (Non-Af Amer) > 60 POC Glucose (mg/dL) 251 H Random Glucose 154 H Calcium 9.4 Total Bilirubin 0.3 AST 34 ALT 38 Alkaline Phosphatase 73 Lactate Dehydrogenase 302 L Total Creatine Kinase 35 Troponin I < 0.01 Total Protein 7.2 Albumin 3.8 Globulin 3.4 Albumin/Globulin Ratio 1.1 02/17/18 02/17/18 07:32 11:18 WBC RBC Hgb Hct MCV MCH MCHC RDW Plt Count MPV Gran % Lymph % (Auto) Henderson % (Auto) Eos % (Auto) Baso % (Auto) Gran # Lymph # (Auto) Henderson # (Auto) Eos # (Auto) Baso # (Auto) Sodium Potassium Chloride Carbon Dioxide Anion Gap BUN Creatinine Est GFR ( Amer) Est GFR (Non-Af Amer) POC Glucose (mg/dL) 278 H 192 H Random Glucose Calcium Total Bilirubin AST ALT Alkaline Phosphatase Lactate Dehydrogenase Total Creatine Kinase Troponin I Total Protein Albumin Globulin Albumin/Globulin Ratio Attending/Attestation - Attestation I have personally seen and examined this patient.: Yes I have fully participated in the care of the patient.: Yes I have reviewed all pertinent clinical information: Yes Notes (Text): I have seen and examined the patient at bedside. Agree with the above note dictated by the resident. All the labs, physical exam and labs reviewed personally by me. Will consult vascular. Last time, patient was evaluated by vascular was 5 years ago. Patient continues to smoke. Counselling provided. Upon discharge patient will follow up with Dr Robert Gustafson. Dr Nirav Barnett
--- NOTE | 2018-02-16 15:49 | CP.PCM.CON ---
History of Present Illness - History of Present Illness History of Present Illness: Vascular Surgery: Dr Martinez Re: infrarenal aortic aneurysm Pt is a 67M with PMH of HTN, HLD, DM, COPD, BPH, chronic low back pain, known AAA ( last measurement 4.3cm in 2014). Pt presents to ED for back pain. This morning he woke up, with no symptoms, until he went to use the rest room. At that time he felt a sharp stabbing in his mid thoracic region. The pain radiated down into his lumbar area and wrapped around the lower ribs into his chest. Pt states at the time the pain was a 10/10 and he though he was having a heart attack so he came to the ED. He reports associated SOB and diaphoresis. He denies any other symptoms including fevers, chills, nausea or vomiting. Pt reports he is being followed by Dr Gonzales and is aware of his existing aneurysm. PMHx: HTN, HPL, DM, CAD, COPD, aortic aneurysm, BPH and chronic lower back pain PSHx: CABG Allergies: NKDA Social Hx: denies ETOH use, 1/2 ppd for 20+ years, denies illicit drug use Family Hx: father- CAD, SD, DM Medications: please see MAR Review of Systems - Review of Systems All systems: reviewed and no additional remarkable complaints except (as per hpi ) Past Patient History - Infectious Disease Hx of Infectious Diseases: None - Tetanus Immunizations Tetanus Immunization: Unknown - Past Medical History & Family History Past Medical History?: Yes - Past Social History Smoking Status: Heavy Smoker > 10 Cigarettes Daily - CARDIAC Hx Cardiac Disorders: Yes Hx Heart Attack: Yes (1998) Hx Hypertension: Yes Other/Comment: 7 cardiac stents, double bypass - PULMONARY Hx Respiratory Disorders: Yes Hx Asthma: Yes Hx Chronic Obstructive Pulmonary Disease (COPD): Yes Hx Sleep Apnea: Yes - NEUROLOGICAL Hx Neurological Disorder: No - HEENT Hx HEENT Problems: Yes Hx Cataracts: Yes (Bilateral Cataract surgery) Hx Glaucoma: Yes Other/Comment: LASER SURGERY FOR GLAUCOMA. SURGERY FOR TRAUMA TO LEFT EAR - RENAL Hx Chronic Kidney Disease: No - ENDOCRINE/METABOLIC Hx Endocrine Disorders: Yes Hx Diabetes Mellitus Type 1: Yes - HEMATOLOGICAL/ONCOLOGICAL Hx Blood Disorders: No - INTEGUMENTARY Hx Dermatological Problems: No - MUSCULOSKELETAL/RHEUMATOLOGICAL Hx Musculoskeletal Disorders: Yes Hx Herniated Disk: Yes (Scheduled for surgery next week) - GASTROINTESTINAL Hx Gastrointestinal Disorders: Yes Other/Comment: HX: 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 - GENITOURINARY/GYNECOLOGICAL Hx Genitourinary Disorders: Yes Hx Prostate Problems: Yes (BPH) Other/Comment: Takes Flomax - PSYCHIATRIC Hx Psychophysiologic Disorder: Yes Hx Substance Use: No - SURGICAL HISTORY Hx Cataract Extraction: Yes Hx Coronary Stent: Yes Hx Musculoskeletal Surgery: Yes (01/07/16-LEFT CARPAL TUNNEL RELEASE) Hx Open Heart Surgery: Yes Other/Comment: left eardrum - ANESTHESIA Hx Anesthesia: Yes Hx Anesthesia Reactions: No Hx Malignant Hyperthermia: No Meds Allergies/Adverse Reactions: Allergies Allergy/AdvReac Type Severity Reaction Status Date / Time No Known Allergies Allergy Verified 02/16/18 09:11 - Medications Medications: Current Medications Aspirin (Ecotrin) 81 mg PO DAILY KIAH Clopidogrel Bisulfate (Plavix) 75 mg PO DAILY [facility] Cyclobenzaprine HCl (Flexeril) 5 mg PO TID PRN PRN Reason: Muscle spasm Hydralazine HCl (Apresoline) 10 mg IVP Q8H PRN PRN Reason: Systolic Blood Pressure Ibuprofen (Motrin Tab) 400 mg PO Q6H PRN PRN Reason: Pain, moderate (4-7) Insulin Human Lispro (Humalog High) 0 units SC ACHS K[facility] PRN Reason: Protocol Losartan Potassium (Cozaar) 50 mg PO DAILY K[facility] Metoprolol Succinate (Toprol Xl) 25 mg PO DAILY K[facility] Nicotine (Nicoderm Cq) 1 patch TD DAILY PRN PRN Reason: URGE TO SMOKE Tamsulosin HCl (Flomax) 0.4 mg PO DAILY K[facility] Physical Exam - Constitutional Appears: Non-toxic, No Acute Distress - ENT Exam ENT Exam: Mucous Membranes Moist - Respiratory Exam Respiratory Exam: absent: Accessory Muscle Use, Respiratory Distress - Cardiovascular Exam Cardiovascular Exam: REGULAR RHYTHM. absent: Tachycardia - GI/Abdominal Exam GI & Abdominal Exam: Soft. absent: Diminished Bowel Sounds, Distended, Firm, Guarding, Hernia, Mass, Pulsatile Mass, Rigid, Tenderness - Extremities Exam Extremities exam: Negative for: calf tenderness, pedal edema - Neurological Exam Neurological exam: Alert, Oriented x3 - Psychiatric Exam Psychiatric exam: Normal Affect, Normal Mood - Skin Skin Exam: Normal Color, Warm Results - Vital Signs Recent Vital Signs: Last Vital Signs Temp 97.7 F 04/12/18 09:02 Pulse 78 02/16/18 14:20 Resp 18 02/16/18 14:20 BP 145/79 02/16/18 14:20 Pulse Ox 96 02/16/18 14:20 - Labs Result Diagrams: 02/16/18 09:30 02/16/18 09:30 Assessment & Plan - Assessment and Plan (Free Text) Assessment: 67M with known AAA - 4.4cm - admitted for back pain Plan: compared to previous CT no significant expanse in size of aneurysm pain likely secondary to herniated vertebral discs no surgical intervention planned continue to monitor AAA w/ US [id number] further recs pending attending eval will d/w Dr Juan Billingsley, PGY3 - Date & Time Date: 02/16/18 Time: 16:08
[2018-02-16 16:06] LABS: PH,URINE 6.5 (4.7-8.0); URINE BILIRUBIN NEGATIVE (NEGATIVE); URINE BLOOD NEGATIVE (NEGATIVE); URINE GLUCOSE (UA) NEGATIVE (NEGATIVE); URINE LEUKOCYTE ESTERASE NEGATIVE Leu/uL (NEGATIVE); URINE PROTEIN NEGATIVE mg/dL (<30 mg/dL); URINE UROBILINOGEN 0.2 E.U./dL (<1 E.U./dL)
[2018-02-16 16:09] LABS: URINE APPEARANCE CLEAR (CLEAR); URINE COLOR YELLOW (YELLOW)
[2018-02-16 16:09] LABS: HDL CHOLESTEROL 31 mg/dL (29-60)
[2018-02-16 16:20] LABS: LDL CHOLESTEROL 128 mg/dL (0-129)
[2018-02-16] MEDS: Insulin Lispro (HUMAlog) HIGH Coverage SC SCH ×2 (16:30→22:16)
--- NOTE | 2018-02-16 16:41 | CARD ---
APPROVED REPORT EKG Measurement Heart [id number] <Conclusion> Sinus rhythm with occasional premature ventricular complexes Inferior infarct, old NSSTW changes No change
[2018-02-16 17:43] LABS: TROPONIN I < 0.01 ng/mL
[2018-02-16 21:53] LABS: TROPONIN I < 0.01 ng/mL
[2018-02-16] MEDS ORDERED: Pneumococcal 23-Valent Vaccine IM ONE (22:34)
[2018-02-17 01:45] VITALS: O2SAT 94
[2018-02-17 03:30] LABS: BASO # 0.02 K/mm3 (0.0-2.0); BASO % 0.2 % (0.0-3.0); EOS # 0.2 (0.0-0.7); EOS % 2.7 % (1.5-5.0); GRAN # 5.71 (1.4-6.5); GRAN % 67.7 % (50.0-68.0); HEMOGLOBIN 13.8 g/dL (14.0-18.0); LYMPH # 1.6 (1.2-3.4); LYMPH % 19.4 % (22.0-35.0); MEAN CELL VOLUME 91.2 fl (80.0-105.0); MEAN CORPUSCULAR HEMOGLOBIN 31.8 pg (25.0-35.0); MEAN CORPUSCULAR HGB CONC 34.8 g/dl (31.0-37.0); MEAN PLATELET VOLUME 9.5 fl (7.0-11.0); MONO # 0.8 (0.1-0.6); RBC 4.34 10^6/uL (3.5-6.1); RED CELL DISTRIBUTION WIDTH 12.7 % (11.5-14.5); WHITE BLOOD COUNT 8.4 10^3/ul (4.5-11.0)
[2018-02-17 03:45] LABS: TROPONIN I < 0.01 ng/mL
--- NOTE | 2018-02-17 04:57 | CP.PCM.DIS ---
<Lucio Loza - Last Filed: 02/17/18 14:28> Provider - Provider Date of Admission: 02/16/18 14:36 Attending physician: Cherry Lo MD Primary care physician: Diego Gustafson MD Time Spent in preparation of Discharge (in minutes): 45 Diagnosis - Discharge Diagnosis (1) Aneurysm of infrarenal abdominal aorta Status: Chronic Priority: Medium (2) Upper back pain Status: Chronic Priority: Medium (3) HTN (hypertension) Status: Acute (4) Hyperlipidemia Status: Chronic Priority: Medium (5) Type 2 diabetes mellitus Status: Chronic Priority: Medium (6) COPD (chronic obstructive pulmonary disease) Status: Chronic Priority: Medium (7) Tobacco abuse Status: Chronic Priority: Medium Hospital Course - Lab Results Lab Results: Most Recent Lab Values WBC 8.4 10^3/ul (4.5-11.0) D 02/17/18 03:15 RBC 4.34 10^6/uL (3.5-6.1) 02/17/18 03:15 Hgb 13.8 g/dL (14.0-18.0) L 02/17/18 03:15 Hct 39.6 % (42.0-52.0) L 02/17/18 03:15 MCV 91.2 fl (80.0-105.0) 02/17/18 03:15 MCH 31.8 pg (25.0-35.0) 02/17/18 03:15 MCHC 34.8 g/dl (31.0-37.0) 02/17/18 03:15 RDW 12.7 % (11.5-14.5) 02/17/18 03:15 Plt Count 314 10^3/uL (120.0-450.0) 02/17/18 03:15 MPV 9.5 fl (7.0-11.0) 02/17/18 03:15 Gran % 67.7 % (50.0-68.0) 02/17/18 03:15 Lymph % (Auto) 19.4 % (22.0-35.0) L 02/17/18 03:15 Bates % (Auto) 10.0 % (1.0-6.0) H 02/17/18 03:15 Eos % (Auto) 2.7 % (1.5-5.0) 02/17/18 03:15 Baso % (Auto) 0.2 % (0.0-3.0) 02/17/18 03:15 Gran # 5.71 (1.4-6.5) 02/17/18 03:15 Lymph # (Auto) 1.6 (1.2-3.4) 02/17/18 03:15 Bates # (Auto) 0.8 (0.1-0.6) H 02/17/18 03:15 Eos # (Auto) 0.2 (0.0-0.7) 02/17/18 03:15 Baso # (Auto) 0.02 K/mm3 (0.0-2.0) 02/17/18 03:15 Sodium 142 mmol/L (132-148) 02/16/18 09:30 Potassium 4.6 mmol/L (3.6-5.0) 02/16/18 09:30 Chloride 100 mmol/L (98-107) 02/16/18 09:30 Carbon Dioxide 29 mmol/L (21-33) 02/16/18 09:30 Anion Gap 17 (10-20) 02/16/18 09:30 BUN 12 mg/dL (7-21) 02/16/18 09:30 Creatinine 0.6 mg/dl (0.8-1.5) L 02/16/18 09:30 Est GFR ( Amer) > 60 02/16/18 09:30 Est GFR (Non-Af Amer) > 60 02/16/18 09:30 POC Glucose (mg/dL) 251 mg/dL (65-110) H 02/16/18 21:30 Random Glucose 205 mg/dL (70-110) H 02/16/18 09:30 Hemoglobin A1c 6.7 % (4.2-6.5) H 02/16/18 14:00 Calcium 9.8 mg/dL (8.4-10.5) 02/16/18 09:30 Total Bilirubin 0.5 mg/dL (0.2-1.3) 02/16/18 09:30 AST 45 U/L (17-59) 02/16/18 09:30 ALT 38 U/L (7-56) 02/16/18 09:30 Alkaline Phosphatase 77 U/L (38-126) 02/16/18 09:30 Lactate Dehydrogenase 273 U/L (333-699) L 02/16/18 21:27 Total Creatine Kinase 36 U/L (35-230) 02/16/18 21:27 Troponin I < 0.01 ng/mL 02/17/18 03:15 Total Protein 7.8 g/dL (5.8-8.3) 02/16/18 09:30 Albumin 4.1 g/dL (3.0-4.8) 02/16/18 09:30 Globulin 3.7 gm/dL 02/16/18 09:30 Albumin/Globulin Ratio 1.1 (1.1-1.8) 02/16/18 09:30 Triglycerides 111 mg/dL (35-160) 02/16/18 09:30 Cholesterol 177 mg/dL (130-200) 02/16/18 09:30 LDL Cholesterol Direct 128 mg/dL (0-129) 02/16/18 09:30 HDL Cholesterol 31 mg/dL (29-60) 02/16/18 09:30 Lipase 70 U/L (23-300) 02/16/18 09:30 Urine Color Yellow (YELLOW) 02/16/18 15:45 Urine Appearance Clear (CLEAR) 02/16/18 15:45 Urine pH 6.5 (4.7-8.0) 02/16/18 15:45 Ur Specific [place] 1.010 (1.005-1.035) 02/16/18 15:45 Urine Protein Negative mg/dL (<30 mg/dL) 02/16/18 15:45 Urine Glucose (UA) Negative mg/dL (NEGATIVE) 02/16/18 15:45 Urine Ketones Negative mg/dL (NEGATIVE) 02/16/18 15:45 Urine Blood Negative (NEGATIVE) 02/16/18 15:45 Urine Nitrate Negative (NEGATIVE) 02/16/18 15:45 Urine Bilirubin Negative (NEGATIVE) 02/16/18 15:45 Urine Urobilinogen 0.2 E.U./dL (<1 E.U./dL) 02/16/18 15:45 Ur Leukocyte Esterase Negative Van/uL (NEGATIVE) 02/16/18 15:45 - Hospital Course Hospital Course: Patient is a 67-year-old male with a past history of HTN, HPL, DM, CAD, COPD, aortic aneurysm, BPH and chronic lower back pain who was admitted for evaluation and treatment of back pain and chest pain. With the use of physical examinations, lab work, and imaging the patient was diagnosed with and treated for back pain secondary to disk herniation and acute coronary syndrome was ruled out. During their hospital stay the patient was seen by vascular surgery and cardiology whose recommendations were both appreciated and utilized in the care for this patient. No surgical intevention was deemed warranted at this time. During their hospital stay the patient underwent a CTA which was reviewed , appreciated, and utilized in the management of the patients clinical course. CTA revealed a 4.4 cm infrarenal abdominal aortic aneurysm, a mild amount of mural thrombus, and no dissection present. Patient was treated with antihypertensive medications amongst other empiric/therapeutic medications. At this time the patient is medically stable for discharge. Patient understands and appreciates discharge plan. Patient instructed to follow up with primary care physicians and referrals within three to five days from discharge. Furthermore, the patient is instructed to take medications as prescribed and to return to emergency room for evaluation of intractable headache, fever, chills, dizziness, chest pain, shortness of breath, abdominal pain, nausea, vomiting, diarrhea, constipation, and urinary symptoms. This is a brief summary of the patients hospital course. Please see patient chart for full details. Discharge Exam - Additional Findings Additional findings: - Head Exam Head Exam: ATRAUMATIC, NORMOCEPHALIC - Constitutional Appears: Non-toxic, No Acute Distress - Head Exam Head Exam: ATRAUMATIC, NORMOCEPHALIC - Eye Exam Eye Exam: EOMI - ENT Exam ENT Exam: Mucous Membranes Moist - Neck Exam Neck exam: Positive for: Full Rom - Respiratory Exam Respiratory Exam: decreased breath sounds bilaterally - Cardiovascular Exam Cardiovascular Exam: +S1, +S2. absent: Systolic Murmur - GI/Abdominal Exam GI & Abdominal Exam: Normal Bowel Sounds, Soft, Non tender to palpation absent : Distended, Firm, Mass, Rebound, Rigid - MSK MSK Exam: point tenderness thoracic back t9-t10 region midscapular region - Extremities Exam Extremities exam: Positive for: normal inspection. Negative for: calf tenderness, pedal edema - Neurological Exam Neurological exam: Alert, Oriented x3 - Psychiatric Exam Psychiatric exam: Normal Affect, Normal Mood - Skin Skin Exam: Intact, Normal Color, Warm Discharge Plan - Follow Up Plan Condition: FAIR Disposition: HOME/ ROUTINE Patient education suggested?: Yes Instructions: Abdominal Aortic Aneurysm, Quitting Smoking, Chest Pain (DC), Chest Pain (GEN) Additional Instructions: Patient Instructions: Take medications as prescribed. Follow up with PMD and referrals within three to five days from discharge. Return to the emergency room for evaluation of intractable headache, fever, chills, dizziness, chest pain, shortness of breath, abdominal pain, nausea, vomiting, diarrhea, constipation, and urinary symptoms. Referrals: Diego Gustafson MD [Primary Care Provider] - Tammy Simental MD [Staff Provider] - <Nirav Barnett - Last Filed: 02/17/18 17:05> Provider - Provider Date of Admission: 02/16/18 14:36 Attending physician: Nirav Barnett MD Primary care physician: Diego Gustafson MD Hospital Course - Lab Results Lab Results: Most Recent Lab Values WBC 8.4 10^3/ul (4.5-11.0) D 02/17/18 03:15 RBC 4.34 10^6/uL (3.5-6.1) 02/17/18 03:15 Hgb 13.8 g/dL (14.0-18.0) L 02/17/18 03:15 Hct 39.6 % (42.0-52.0) L 02/17/18 03:15 MCV 91.2 fl (80.0-105.0) 02/17/18 03:15 MCH 31.8 pg (25.0-35.0) 02/17/18 03:15 MCHC 34.8 g/dl (31.0-37.0) 02/17/18 03:15 RDW 12.7 % (11.5-14.5) 02/17/18 03:15 Plt Count 314 10^3/uL (120.0-450.0) 02/17/18 03:15 MPV 9.5 fl (7.0-11.0) 02/17/18 03:15 Gran % 67.7 % (50.0-68.0) 02/17/18 03:15 Lymph % (Auto) 19.4 % (22.0-35.0) L 02/17/18 03:15 Bates % (Auto) 10.0 % (1.0-6.0) H 02/17/18 03:15 Eos % (Auto) 2.7 % (1.5-5.0) 02/17/18 03:15 Baso % (Auto) 0.2 % (0.0-3.0) 02/17/18 03:15 Gran # 5.71 (1.4-6.5) 02/17/18 03:15 Lymph # (Auto) 1.6 (1.2-3.4) 02/17/18 03:15 Bates # (Auto) 0.8 (0.1-0.6) H 02/17/18 03:15 Eos # (Auto) 0.2 (0.0-0.7) 02/17/18 03:15 Baso # (Auto) 0.02 K/mm3 (0.0-2.0) 02/17/18 03:15 Sodium 140 mmol/L (132-148) 02/17/18 03:15 Potassium 4.1 mmol/L (3.6-5.0) 02/17/18 03:15 Chloride 98 mmol/L (98-107) 02/17/18 03:15 Carbon Dioxide 32 mmol/L (21-33) 02/17/18 03:15 Anion Gap 14 (10-20) 02/17/18 03:15 BUN 11 mg/dL (7-21) 02/17/18 03:15 Creatinine 0.6 mg/dl (0.8-1.5) L 02/17/18 03:15 Est GFR ( Amer) > 60 02/17/18 03:15 Est GFR (Non-Af Amer) > 60 02/17/18 03:15 POC Glucose (mg/dL) 192 mg/dL (65-110) H 02/17/18 11:18 Random Glucose 154 mg/dL (70-110) H 02/17/18 03:15 Hemoglobin A1c 6.7 % (4.2-6.5) H 02/16/18 14:00 Calcium 9.4 mg/dL (8.4-10.5) 02/17/18 03:15 Total Bilirubin 0.3 mg/dL (0.2-1.3) 02/17/18 03:15 AST 34 U/L (17-59) 02/17/18 03:15 ALT 38 U/L (7-56) 02/17/18 03:15 Alkaline Phosphatase 73 U/L (38-126) 02/17/18 03:15 Lactate Dehydrogenase 302 U/L (333-699) L 02/17/18 03:15 Total Creatine Kinase 35 U/L (35-230) 02/17/18 03:15 Troponin I < 0.01 ng/mL 02/17/18 03:15 Total Protein 7.2 g/dL (5.8-8.3) 02/17/18 03:15 Albumin 3.8 g/dL (3.0-4.8) 02/17/18 03:15 Globulin 3.4 gm/dL 02/17/18 03:15 Albumin/Globulin Ratio 1.1 (1.1-1.8) 02/17/18 03:15 Triglycerides 111 mg/dL (35-160) 02/16/18 09:30 Cholesterol 177 mg/dL (130-200) 02/16/18 09:30 LDL Cholesterol Direct 128 mg/dL (0-129) 02/16/18 09:30 HDL Cholesterol 31 mg/dL (29-60) 02/16/18 09:30 Lipase 70 U/L (23-300) 02/16/18 09:30 Urine Color Yellow (YELLOW) 02/16/18 15:45 Urine Appearance Clear (CLEAR) 02/16/18 15:45 Urine pH 6.5 (4.7-8.0) 02/16/18 15:45 Ur Specific [place] 1.010 (1.005-1.035) 02/16/18 15:45 Urine Protein Negative mg/dL (<30 mg/dL) 02/16/18 15:45 Urine Glucose (UA) Negative mg/dL (NEGATIVE) 02/16/18 15:45 Urine Ketones Negative mg/dL (NEGATIVE) 02/16/18 15:45 Urine Blood Negative (NEGATIVE) 02/16/18 15:45 Urine Nitrate Negative (NEGATIVE) 02/16/18 15:45 Urine Bilirubin Negative (NEGATIVE) 02/16/18 15:45 Urine Urobilinogen 0.2 E.U./dL (<1 E.U./dL) 02/16/18 15:45 Ur Leukocyte Esterase Negative Van/uL (NEGATIVE) 02/16/18 15:45 Attending/Attestation - Attestation I have personally seen and examined this patient.: Yes I have fully participated in the care of the patient.: Yes I have reviewed all pertinent clinical information, including history, physical exam and plan: Yes Notes (Text): I have seen and examined the patient at bedside. Agree with the above note dictated by the resident. All the labs, physical exam, imaging and labs reviewed personally by me. Discussed with vascular. There is no intervention planned. Patient has CARMELLA non complaint with cpap. Advised the patient to have a repeat sleep study and need probably adjustment of CPAP. Patient agreed. Counselling provided regarding tobacco use. Upon discharge patient will follow up with Dr Robert Gustafson. Dr Nirav Barnett
[2018-02-17 05:11] LABS: ALB/GLOB RATIO 1.1 (1.1-1.8); ALBUMIN 3.8 g/dL (3.0-4.8); ALT/SGPT 38 U/L (7-56); AST/SGOT 34 U/L (17-59); BLOOD UREA NITROGEN 11 mg/dL (7-21); CALCIUM 9.4 mg/dL (8.4-10.5); GFR AFRICAN-AMERICAN > 60; GFR NON-AFRICAN AMERICAN > 60
[2018-02-17] MEDS: Insulin Lispro (HUMAlog) HIGH Coverage SC SCH ×2 (08:29→12:58)
[2018-02-17] MEDS ORDERED: Metoprolol Succinate 25 mg XL Tab PO SCH (10:00)
[2018-02-17] MEDS ORDERED: VALSARTAN 80 MG PO SCH (10:00)
[2018-02-17 12:28] VITALS: BP 161/93; PULSE 81; RESP 21; TEMP 98.1
--- NOTE | 2018-02-17 17:04 | PN ---
DATE: SUBJECTIVE: The patient is a 67-year-old male with multiple medical problems. He is a diabetic and a chronic smoker. He has a history of coronary artery disease, status post coronary artery bypass graft and stenting. He also has a history of sleep apnea. He is noncompliant with therapy and he is still smoking over 10 cigarettes a day. The rest of the history is as stated in the relevant H and P. The patient is currently asymptomatic. He has no back pain and no abdominal tenderness. His aneurysm is not palpable due to his obesity. The CAT scan was reviewed. The aneurysm does not seem to be enlarging as compared with the CAT scan according to the patient of 4.3 cm in 2015. IMPRESSION: Asymptomatic small abdominal aortic aneurysm. There is no surgical intervention indicated at present; however, the patient do need followup ultrasound or CT scan yearly. Miriam Martinez MD
--- NOTE | 2018-02-17 20:43 | CON ---
DATE: SERVICE: Cardiology. REASON FOR CONSULTATION: Back pain, history of coronary artery disease, cardiac evaluation, status post back surgery. BRIEF CLINICAL HISTORY: This is a 67-year-old male with a past medical history significant for herniated disk, sleep apnea, coronary artery disease, status post CABG, being followed by Dr. Gonzales at [facility], history of coronary artery bypass surgery in 1998, admitted with complaint of pain in the back, lower chest. Denies any chest pain, denies any shortness of breath, denies any palpitation. PAST HISTORY: Significant for coronary artery disease, status post CABG in 1998, hypertension, diabetes, history of vertebral herniated disk, history of obstructive sleep apnea, history of obesity. SOCIAL HISTORY: Smokes 15 cigarettes a day. Denies any history of alcohol abuse. PAST SURGICAL HISTORY: Significant for coronary artery bypass in 1998, history of recent pneumonia, being followed by who did a chest x-ray and shows pneumonia, then repeat chest x-ray old pneumonia, so the patient is confused and came in, complaining of chest pain on taking a deep breath. CURRENT MEDICATIONS AT HOME: The patient is taking valsartan 80 mg, Flomax 0.4 mg, metoprolol succinate 25 mg daily, metformin 1 g twice a day, clopidogrel one tablet daily, Ecotrin 81 mg daily, albuterol inhaler. ALLERGIES: NO KNOWN DRUG ALLERGIES. REVIEW OF SYSTEMS: As per HPI. PHYSICAL EXAMINATION: VITAL SIGNS: As follows: Temperature afebrile, heart rate 79, blood pressure 133/81. HEENT: PERRLA. Extraocular muscles intact. NECK: Supple. No carotid bruit or thyromegaly. CHEST: Clear to auscultation. HEART: S1 and S2, regular. ABDOMEN: Soft. EXTREMITIES: Clubbing and cyanosis negative. LABORATORY DATA: Chest x-ray admitting 02/16/2018, no active disease. EKG on admission shows normal sinus, inferior wall IA of undetermined age. No acute ST-T changes noted. The patient has a CT angio on admission that shows 4.4 cm infrarenal abdominal aortic aneurysm. There is a mild amount of mural thrombus. There is no dissection. IMPRESSION: Atypical chest pain, incidental finding of infrarenal 4.4 abdominal aortic aneurysm. No dissection. History of coronary artery disease, coronary artery bypass graft in 1998, sleep apnea, morbid obesity, being followed with Dr. Gonzales, chest pain is atypical, musculoskeletal, and since he takes a deep breath, it hurts. No evidence of acute myocardial infarction or coronary syndrome. RECOMMENDATIONS: Continue aggressive, continue blood pressure, continue hydralazine, continue aspirin, continue Plavix, low-dose beta-will as blood pressure is tolerated, needs to be followed up, suggested to follow up aneurysm to the size 4.4. Repeat CAT scan of the chest in 6 months to 1 year and the patient needs to be followed up with Dr. Gonzales. I explained to the patient above. The patient is cleared from Cardiology point of view to be discharged. We will discontinue telemetry. Needs to be followed. No evidence of acute IA, but needs to be followed up with Dr. Gonzales, especially for abdominal aortic aneurysm in 6 months to 1 year. Repeat followup CAT scan. Tammy Simental MD
== END 2018-02-17 16:39 | disposition home or self-care (01) ==
LOC: ED 08:31 → ERH 14:36 → INTOOBSV 14:36 → ERH 16:17 → 2RNO 17:04
PROVIDERS: ADMIT Internal Medicine; ATTEND Hospitalist
DX: I71.4 Abdominal aortic aneurysm, without rupture (principal); I10 Essential (primary) hypertension; I25.10 Atherosclerotic heart disease of native coronary artery without angina pectoris; J44.9 Chronic obstructive pulmonary disease, unspecified; E11.9 Type 2 diabetes mellitus without complications; E78.5 Hyperlipidemia, unspecified; N40.0 Benign prostatic hyperplasia without lower urinary tract symptoms; G89.29 Other chronic pain; M54.5 Low back pain; G47.33 Obstructive sleep apnea (adult) (pediatric); I25.2 Old myocardial infarction; E66.9 Obesity, unspecified; F17.210 Nicotine dependence, cigarettes, uncomplicated; Z91.19 Patient's noncompliance with other medical treatment and regimen; Z95.5 Presence of coronary angioplasty implant and graft; Z95.1 Presence of aortocoronary bypass graft; Z79.02 Long term (current) use of antithrombotics/antiplatelets; Z79.82 Long term (current) use of aspirin
CPT/HCPCS: 36415; 71045; 71275; 74175; 80053; 80061; 81003; 82550; 82948; 83036; 83615; 83690; 84484; 85025; 93005; 96374; 97116; 97161; 97530; 99285; G0378; G8978; G8979; J2270; J7040

== ENCOUNTER 2018-10-22 02:20 | Inpatient (IN) | payer MEDICARE, MEDICAID ==
[2018-10-22 02:28] VITALS: BMI 39.1
--- NOTE | 2018-10-22 02:44 | ED PDOC ---
Arrival/HPI - General Chief Complaint: Chest Pain Time Seen by Provider: 10/22/18 02:32 Historian: Patient - History of Present Illness Narrative History of Present Illness (Text): 10/22/18 02:41 67 year old male smoker, whose past medical history includes hypertension, hyperlipidemia, diabetes, CAD, coronary bypass, and aortic aneurysm, who presents to the emergency department complaining of intermittent chest discomfor t x 2-3 days. Patient describes discomfort as a heaviness, non radiating. Patient states he was worried due to his past medical hsitory. Patient denies any fever, chills, shortness of breath, nausea, vomiting, diarrhea, urinary symptoms, back pain, neck pain, headache, dizziness, or any other complaints. Time/Duration: < week Symptom Onset: Gradual Symptom Course: Unchanged Activities at Onset: Light Context: Home Past Medical History - Provider Review Nursing Documentation Reviewed: Yes - Infectious Disease Hx of Infectious Diseases: None - Tetanus Immunization Tetanus Immunization: Unknown - Cardiac Hx Cardiac Disorders: Yes (mi 1998, aaa) Hx VT: Yes (1998) Hx Hypertension: Yes Hx Peripheral Edema: Yes (+1 ble) Other/Comment: 7 cardiac stents, double bypass - Pulmonary Hx Respiratory Disorders: Yes Hx Asthma: Yes Hx Chronic Obstructive Pulmonary Disease (COPD): Yes Hx Sleep Apnea: Yes (does not use his cpap) Other/Comment: chronic smoker cough - Neurological Hx Neurological Disorder: Yes Hx Dizziness: Yes - HEENT Hx HEENT Disorder: Yes Hx Cataracts: Yes (Bilateral Cataract surgery) Hx Glaucoma: Yes Other/Comment: LASER SURGERY FOR GLAUCOMA. SURGERY FOR TRAUMA TO LEFT EAR, work related, was working and metal flew into eardrum, hearing impaired left ear - Renal Hx Renal Disorder: No - Endocrine/Metabolic Hx Endocrine Disorders: Yes Hx Diabetes Mellitus Type 1: Yes Hx Diabetes Mellitus Type 2: Yes - Hematological/Oncological Hx Blood Disorders: No - Integumentary Hx Dermatological Disorder: Yes Other/Comment: dry skin multiple skin discolorations ble, DRY LESIONS - Musculoskeletal/Rheumatological Hx Musculoskeletal Disorders: Yes Hx Arthritis: Yes (lbp; r knee pain) Hx Back Pain: Yes (chronic lower back) Hx Falls: No Hx Fractures: Yes (RIGHT KNEE TO LOWER LEG PENNY POST FX.) Hx Herniated Disk: Yes (pt denies sx scheduled) Hx Unsteady Gait: Yes (cane) Other/Comment: Uses cane - Gastrointestinal Hx Gastrointestinal Disorders: Yes Other/Comment: HX: 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 - Genitourinary/Gynecological Hx Genitourinary Disorders: Yes Hx Prostate Problems: Yes (BPH) Other/Comment: Takes Flomax - Psychiatric Hx Psychophysiologic Disorder: No Hx Substance Use: No - Surgical History Hx Cataract Extraction: Yes Hx Cardiac Catheterization: Yes Hx Coronary Artery Bypass Graft: Yes (x2) Hx Coronary Stent: Yes Hx Eye Surgery: Yes ([facility]) Hx Musculoskeletal Surgery: Yes (01/07/16-LEFT CARPAL TUNNEL RELEASE) Hx Open Heart Surgery: Yes Hx Open Reduction Internal Fixation: Yes (RIGHT LEG) Hx Orthopedic Surgery: Yes (RIGHT KNEE TO LOWER LEG WITH PENNY PLACED AFTER FX.) Other/Comment: left eardrum, r knee to lower leg penny placed post fx - Anesthesia Hx Anesthesia: Yes Hx Anesthesia Reactions: No Hx Malignant Hyperthermia: No - Suicidal Assessment Feels Threatened In Home Enviroment: No Family/Social History - Physician Review Nursing Documentation Reviewed: Yes Family/Social History: Unknown Family HX Smoking Status: Heavy Smoker > 10 Cigarettes Daily Hx Alcohol Use: No Hx Substance Use: No Allergies/Home Meds Allergies/Adverse Reactions: Allergies No Known Allergies Allergy (Verified 10/22/18 02:31) Home Medications: Home Meds Medication Instructions Recorded Confirmed Aspirin [Ecotrin] 81 mg PO DAILY 01/05/18 10/22/18 Clopidogrel [Plavix] 1 tab DAILY 01/05/18 10/22/18 MetFORMIN [glucoPHAGE] 1,000 mg PO BID 01/05/18 10/22/18 Metoprolol Succinate 25 mg PO DAILY 01/05/18 10/22/18 Tamsulosin [Flomax] 0.4 mg PO DAILY 01/05/18 10/22/18 Valsartan 80 mg PO DAILY 01/05/18 10/22/18 Albuterol 0.042% [Albuterol 0.042% 3 ml IH TID 02/28/18 10/22/18 Inhal Diana (1.25mg/3ml) UD] Ammonium Lactate 12% [Lac-Hydrin] 12 % TP BID 02/28/18 10/22/18 Bisacodyl [Ducolax] 5 mg PO DAILY 02/28/18 10/22/18 Bisoprolol Fumarate 5 mg PO DAILY 02/28/18 10/22/18 Cyclobenzaprine HCl 10 mg PO DAILY 02/28/18 10/22/18 Fluticasone Nasal [Flonase] 1 spr NS DAILY 02/28/18 10/22/18 Glimepiride [amaRYL] 4 mg PO DAILY 02/28/18 10/22/18 Ketoconazole 2% Cr [Nizoral] 15 applic TOP BID 02/28/18 10/22/18 Liraglutide [Victoza] 6 mg SC DAILY 02/28/18 10/22/18 Meloxicam [Mobic] 15 mg PO DAILY 02/28/18 10/22/18 Simvastatin 20 mg PO DAILY 02/28/18 10/22/18 Sucralfate [Carafate] 1 gm PO QID 02/28/18 10/22/18 Review of Systems - Physician Review All systems were reviewed & negative as marked: Yes - Review of Systems Constitutional: Normal Eyes: Normal ENT: Normal Respiratory: Normal Cardiovascular: Chest Pain (chest discomfort). absent: Palpitations Gastrointestinal: Normal. absent: Abdominal Pain, Diarrhea, Nausea, Vomiting Genitourinary Male: Normal. absent: Frequency, Hematuria Musculoskeletal: Normal. absent: Back Pain, Neck Pain Skin: Normal. absent: Rash Neurological: Normal. absent: Headache, Dizziness Endocrine: Normal Hemo/Lymphatic: Normal Psychiatric: Normal Physical Exam Vital Signs Reviewed: Yes Vital Signs Temp Pulse Resp BP Pulse Ox 10/22/18 02:27 97.8 F 92 H 20 138/71 98 Temperature: Afebrile Blood Pressure: Normal Pulse: Regular Respiratory Rate: Normal Appearance: Positive for: Well-Appearing, Non-Toxic, Comfortable Pain Distress: None Mental Status: Positive for: Alert and Oriented X 3 - Systems Exam Head: Present: Atraumatic, Normocephalic Pupils: Present: PERRL Extroacular Muscles: Present: EOMI Conjunctiva: Present: Normal Mouth: Present: Moist Mucous Membranes Neck: Present: Normal Range of Motion Respiratory/Chest: Present: Clear to Auscultation, Good Air Exchange. No: Respiratory Distress, Accessory Muscle Use Cardiovascular: Present: Regular Rate and Rhythm, Normal S1, S2. No: Murmurs Abdomen: No: Tenderness, Distention, Peritoneal Signs Back: Present: Normal Inspection Upper Extremity: Present: Normal Inspection. No: Cyanosis, Edema Lower Extremity: Present: Normal Inspection. No: Edema Neurological: Present: GCS=15, CN II-XII Intact, Speech Normal Skin: Present: Warm, Dry, Normal Color. No: Rashes Psychiatric: Present: Alert, Oriented x 3, Normal Insight, Normal Concentration Medical Decision Making ED Course and Treatment: 10/22/18 02:44 Impression: 67 year old male presents to the Emergency department complaining of intermittent chest discomfort x 2-3 days. Plan: -- EKG -- Labs -- Cardiac ISO -- CXR -- Reassess and disposition Progress Notes: 10/22/18 04:[address] Dick, who accepts pt to her service. Dr. Montoya on consult. - RAD Interpretation Narrative RAD Interpretations (Text): 10/22/18 03:57 CXR- No acute process Local Combination Truck Driver: ED Physician - EKG Interpretation EKG Interpretation (Text): 10/22/18 03:57 EKG-Nsr@88,1st degree AV block occas.PVC,inferior infarct Interpreted by ED Physician: Yes Type: 12 lead EKG - Scribe Statement The provider has reviewed the documentation as recorded by the Scribe Danay Falcon All medical record entries made by the Scribe were at my direction and personally dictated by me. I have reviewed the chart and agree that the record accurately reflects my personal performance of the history, physical exam, medical decision making, and the department course for this patient. I have also personally directed, reviewed, and agree with the discharge instructions and disposition. Disposition/Present on Arrival - Present on Arrival Any Indicators Present on Arrival: No History of DVT/PE: No History of Uncontrolled Diabetes: No Urinary Catheter: No History of Decub. Ulcer: No History Surgical Site Infection Following: None - Disposition Have Diagnosis and Disposition been Completed?: Yes Diagnosis: Chest pain Disposition: HOSPITALIZED Disposition Time: 04:30 Patient Problems: Current Active Problems Problem Status Onset Chest pain Acute Condition: STABLE
[2018-10-22 03:20] LABS: HEMOGLOBIN 11.5 g/dL (14.0-18.0); MEAN CELL VOLUME 92.6 fl (80.0-105.0); MEAN CORPUSCULAR HEMOGLOBIN 30.3 pg (25.0-35.0); MEAN CORPUSCULAR HGB CONC 32.8 g/dl (31.0-37.0); RBC 3.79 10^6/uL (3.5-6.1)
[2018-10-22 03:21] LABS: MEAN PLATELET VOLUME 9.6 fl (7.0-11.0); RED CELL DISTRIBUTION WIDTH 13.4 % (11.5-14.5)
[2018-10-22 03:22] LABS: ALB/GLOB RATIO 1.1 (1.1-1.8); ALBUMIN 3.8 g/dL (3.0-4.8); ALT/SGPT 27 U/L (7-56); AST/SGOT 26 U/L (17-59); BLOOD UREA NITROGEN 12 mg/dL (7-21); CALCIUM 8.8 mg/dL (8.4-10.5); GFR NON-AFRICAN AMERICAN > 60
[2018-10-22 03:25] LABS: INR 1.11; PARTIAL THROMBOPLASTIN TIME 28.1 Seconds (25.1-36.5); PROTHROMBIN TIME 12.8 SECONDS (9.4-12.5)
[2018-10-22 03:33] LABS: B-TYPE NATRIURETIC PEPTIDE 369 pg/mL (0-450); TROPONIN I < 0.01 ng/mL
[2018-10-22] MEDS ORDERED: Potassium Chloride 20 mEq ER Tab PO STA (03:52)
--- NOTE | 2018-10-22 08:33 | RAD ---
HISTORY: chest pain COMPARISON: Chest x-ray performed 02/16/18 TECHNIQUE: Chest, one view. FINDINGS: Examination limited by habitus. LUNGS: No focal consolidation. Please note that chest x-ray has limited sensitivity for the detection of pulmonary masses. PLEURA: No significant pleural effusion identified. No definite pneumothorax . CARDIOVASCULAR: Median sternotomy wires. Cardiomegaly. Ectatic aorta. Faint atherosclerotic calcifications. OSSEOUS STRUCTURES: Osseous demineralization. Degenerative changes. VISUALIZED UPPER ABDOMEN: Unremarkable. OTHER FINDINGS: None. IMPRESSION: No focal consolidation identified. Cardiomegaly.
[2018-10-22] MEDS ORDERED: Insulin Lispro 1 UNITS/0.01 ML ONE (11:54)
[2018-10-22] MEDS: Insulin Lispro (humaLOG) MEDIUM Coverage SC SCH ×3 (11:55→21:51)
[2018-10-22] MEDS: Albuterol 0.083% Inhal Sol (2.5 mg/3 mL) UD INH PRN (15:31)
[2018-10-22] MEDS ORDERED: Potassium Chloride 20 mEq ER Tab PO ONE (16:37)
[2018-10-22] MEDS ORDERED: Enoxaparin 150 mg Syringe SC ONE (17:00)
[2018-10-22] MEDS ORDERED: Enoxaparin 120 mg Syringe SC ONE (17:19)
--- NOTE | 2018-10-22 18:38 | CARD ---
APPROVED REPORT Date of service: 10/22/2018 EKG Measurement Heart [id number] <Conclusion> Sinus rhythm with 1st degree AV block with occasional premature ventricular complexes Inferior infarct, age undetermined Abnormal ECG
--- NOTE | 2018-10-22 23:10 | CON ---
DATE: 10/22/2018 CARDIOLOGY CONSULTATION HISTORY: The patient is a 67-year-old male, who presents with substernal chest pain described as crushing in his chest. The patient is completely noncompliant with medical advice and has diffuse atherosclerosis. Recently he underwent stents in his coronary arteries as well as carotid endarterectomy at [facility]. He suffers from diabetes mellitus, hypertension, and is an active smoker. He stopped seeing Dr. Gonzales in [place] for questionable reasons. No history of ulcers noted. SOCIAL HISTORY: The patient is an active smoker. REVIEW OF SYSTEMS: Fourteen-point review of systems is reviewed in detail. Angina with exertional shortness of breath and chest pain noted on physical exam. PHYSICAL EXAMINATION: VITAL SIGNS: Blood pressure is 134/62, the heart rate is in the 80s. NECK: Negative JVD. LUNGS: Without rales. HEART: Heart rate S1, S2. EXTREMITIES: Without edema. EKG shows diffuse ST-T changes. LABORATORY DATA: BUN and creatinine, unremarkable. Troponin is negative x2. The glucose is 155. The potassium is 3.3, hemoglobin is 11.5. IMPRESSION: 1. Unstable angina. 2. Coronary artery disease. 3. History of coronary artery bypass surgery. 4. Peripheral vascular disease. 5. Status post carotid endarterectomy. 6. Diabetes mellitus. 7. Chronic obstructive pulmonary disease. 8. Continue noncompliance with medical advice. PLAN: Given these findings, we will start the patient on his aspirin, Plavix, as well as his beta-blockers. We will give him subcu Lovenox. I have discussed with the patient about the need for cardiac catheterization in the morning. He is agreeable. Dany Montoya MD
--- NOTE | 2018-10-23 03:15 | HP ---
DATE OF EXAM: 10/22/2018 HISTORY OF PRESENT ILLNESS: The patient is 67 years old, the patient of Dr. Gustafson; states yesterday he was watching a movie on his phone and all of a sudden he started to have chest pressure as if his chest is being squeezed; usually it has been happening intermittently for the last 3-4 days, yesterday it persisted more than half an hour. He got concerned and came to emergency room. The patient has a history of double bypass in 1998. He had cardiac cath done two months ago, and he has stress test done a couple of months ago. PAST MEDICAL HISTORY: He has significant past medical history of: 1. Insulin-dependent diabetes. 2. Hypertension. 3. Hyperlipidemia. 4. Morbid obesity. 5. History of COPD. 6. History of aortic aneurysm. 7. Chronic low back pain. ALLERGIES: HE IS NOT ALLERGIC TO ANY MEDICATION. SOCIAL HISTORY: He used to be a smoker; still smokes here and there. 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 FAMILY HISTORY: Significant for coronary artery disease and yuv-vqzzczq-oteztbxbh diabetes. MEDICATIONS AT HOME: He is on valsartan 80 mg daily, Flomax, simvastatin 20 mg daily, metformin 1000 twice a day, Plavix 75 daily, cyclobenzaprine, aspirin, and nebulizer treatment. PHYSICAL EXAMINATION: GENERAL: The patient is awake, alert, oriented, communicative. VITAL SIGNS: He is afebrile, pulse 89, respirations 19, blood pressure 134/62. LUNGS: Bilateral fair airflow, diffusely decreased breath sounds. HEART: S1, S2 audible. ABDOMEN: Soft and nontender. No rebound. No guarding. NEUROLOGIC: The patient is awake, alert, oriented, communicative. LABORATORY DATA: WBC 10, hemoglobin 11.5, hematocrit 35, platelet 311. PT 12.8 and INR 1.11. Chemistry: Sodium 140, potassium 3.3, chloride 103, CO2 of 28, BUN 12, creatinine 0.6, and blood sugar 155. X-rays chest; no focal consolidation, only cardiomegaly. ASSESSMENT: 1. Chest pain. 2. Cqo-rfjuswz-vsyktrknc diabetes. 3. Hypertension. 4. Hyperlipidemia. 5. Coronary artery disease, status post open heart surgery. 6. Morbid obesity. 7. History of chronic obstructive pulmonary disease. PLAN: Currently, the patient will resume all his usual medications. Monitor blood sugar. Cardiology consult by Dr. Simental who has been following him, before we will follow up his troponin and we will follow up this patient. Beto Dick MD
[2018-10-23 07:02] LABS: FREE T4 0.94 ng/dL (0.78-2.19)
[2018-10-23 07:18] LABS: ALB/GLOB RATIO 1.1 (1.1-1.8); ALBUMIN 3.7 g/dL (3.0-4.8); ALT/SGPT 30 U/L (7-56); AST/SGOT 39 U/L (17-59); BLOOD UREA NITROGEN 13 mg/dL (7-21); CALCIUM 8.9 mg/dL (8.4-10.5); GFR NON-AFRICAN AMERICAN > 60; URIC ACID 7.4 mg/dL (3.5-8.5)
[2018-10-23] MEDS: Albuterol 0.083% Inhal Sol (2.5 mg/3 mL) UD INH PRN (07:30)
[2018-10-23] MEDS ORDERED: Lidocaine 2% Inj (20ml) ONE (09:43)
[2018-10-23] MEDS ORDERED: Iodixanol 320 MG/ML 200 ML BOTTLE IV ONE (09:44)
[2018-10-23] MEDS ORDERED: Iodixanol 320 MG/ML 100 ML BOTTLE IV ONE (09:44)
[2018-10-23] MEDS ORDERED: Iohexol 350mgl/ml 50 ML ONE (09:44)
[2018-10-23] MEDS ORDERED: Phenylephrine 10 mg/ml Inj ONE (09:44)
[2018-10-23] MEDS ORDERED: Midazolam 2 MG/2 ML VIAL ONE (10:02)
[2018-10-23] MEDS: Insulin Lispro (humaLOG) MEDIUM Coverage SC SCH ×4 (11:21→22:07)
[2018-10-23] MEDS ORDERED: Sodium Chloride 0.9% 1,000 ML IV SCH (11:30)
[2018-10-23] MEDS ORDERED: Levalbuterol 0.63 MG/3 ML Inhal Soln UD IH PRN (11:41)
--- NOTE | 2018-10-23 12:09 | CPOSTOP ---
CARDIOVASCULAR LAB POSTPROCEDURE NOTE DATE: 10/23/2018 PHYSICIAN: Dr. Nabil Simental. SENIOR BI ARCHITECT: Karina aircraft launch and recovery technician. TYPE OF ANESTHESIA: Moderate conscious sedation, total 1 mg of Versed and 50 of fentanyl given. PRE-PROCEDURE DIAGNOSES: Unstable angina status post recent coronary intervention, history of coronary artery bypass graft 1998. PROCEDURE PERFORMED: 1. Left heart catheterization. 2. Left internal mammary artery injection. 3. Saphenous vein graft injection. 4. Abdominal aortogram. FINDINGS: [place] triple-vessel disease, presumably left main occluded, occluded RCA proximally, occluded SVG to RCA occluded. Patent BOLANOS to LAD. Decreased LV function. FINAL DIAGNOSES: [place] triple-vessel disease and occluded saphenous vein graft to right coronary artery. POST PROCEDURE CONDITION: Post procedure patient's condition is stable. VASCULAR ACCESS SITE: Right femoral artery. CLOSURE DEVICE: Mynx. TOTAL RADIATION DOSE: 72229.00 milligray unit. TOTAL FLUORO TIME: 15.9 minutes. Tammy Simental MD
--- NOTE | 2018-10-23 13:51 | CP.PCM.PCO ---
Physician Communication Note - Physician Communication Note Physician Communication Note: [place] triple vessel disease occluded SVG to RCA, patent BOLANOS to LAD
--- NOTE | 2018-10-23 17:56 | CARD ---
APPROVED REPORT Date of service: 10/23/2018 EXAM: Two-dimensional and M-mode echocardiogram with Doppler and color Doppler. INDICATION CP, S/P LEFT HEART CATH, LVFX 2D DIMENSIONS Left Atrium (2D)4.9 (1.6-4.0cm)IVSd1.3 (0.7-1.1cm) LVDd6.4 (3.9-5.9cm)PWd1.4 (0.7-1.1cm) LVDs5.5 (2.5-4.0cm)FS (%) 14.5 % LVEF (%)30.3 (>50%) M-Mode DIMENSIONS Aortic Root4.80 (2.2-3.7cm)Aortic Cusp Exc.2.30 (1.5-2.0cm) Aortic Valve AoV Peak Gpefsnxi260.0cm/Wu Peak GR.4mmHg Mitral Valve MV E Fmzptoqx50.4cm/sMV A Oyiasrho31.3cm/sE/A ratio0.5 TDI Lateral E' Peak V9.75cm/sMedial E' Peak V5.26cm/sE/Lateral E'4.6 E/Medial E'8.4 Pulmonary Valve PV Peak Cxvstkaq81.8cm/sPV Peak Grad.1mmHg Tricuspid Valve TR Peak Xbnstfeo016lc/sRAP [id number] Peak Gr.24mmHg [id number] LEFT VENTRICLE The Left Ventricle is mildly dilated. There is mild concentric left ventricular hypertrophy. The systolic function is moderately impaired.EF-30-35% There is moderate to severe hypokinesis in the mid-inferolateral wall. There is mild to moderate hypokinesis in the apical anterior wall. Transmitral Doppler flow pattern is Grade III-reversible restrictive diastolic dysfunction. No left ventricle thrombus noted on this study. There is no ventricular septal defect visualized. There is no left ventricular aneurysm. There is no mass noted in the left ventricle. RIGHT VENTRICLE The right ventricle is normal size. There is normal right ventricular wall thickness. The right ventricular systolic function is normal. ATRIA The left atrium is mildly dilated. The right atrium size is normal. The interatrial septum is intact with no evidence for an atrial septal defect. AORTIC VALVE The aortic valve is thickened but opens well. There is mild aortic regurgitation. There is no aortic valvular stenosis. There is no aortic valvular vegetation. MITRAL VALVE The mitral valve is thickened but opens well. Mitral regurgitation is trace to mild. There is no mitral valve stenosis. There is no evidence of mitral valve prolapse. TRICUSPID VALVE The tricuspid valve leaflets are thickened , but open well. There is trace to mild tricuspid regurgitation.RVSP_34 mmof hg. There is no tricuspid valve stenosis. There is no tricuspid valve prolapse or vegetation. PULMONIC VALVE The pulmonary valve is normal in structure. There is no pulmonic valvular regurgitation. There is no pulmonic valvular stenosis. GREAT VESSELS The aortic root is mildly enlarged. The ascending aorta is Mildly dilated. The pulmonary artery is normal. The IVC is dilated. PERICARDIAL EFFUSION There is no pleural effusion. There is no pericardial effusion. <Conclusion> The Left Ventricle is mildly dilated. There is mild concentric left ventricular hypertrophy. The systolic function is moderately impaired.EF-30-35% There is mild aortic regurgitation. Mitral regurgitation is trace to mild. There is trace to mild tricuspid regurgitation.RVSP_34 mmof hg. The aortic root is mildly enlarged. The ascending aorta is Mildly dilated. The IVC is dilated. There is no pericardial effusion.
[2018-10-23] MEDS: Milrinone 20mg/100ml D5W 100 ML IV PRN (18:15)
--- NOTE | 2018-10-23 19:05 | CARD ---
APPROVED REPORT Date of service: 10/23/2018 Procedure(s) performed: Left Heart Catheterization BOLANOS Angiogram SVG Angiogram HISTORY The patient is a 67 year-old male with a history of : previous IN (> 7 days), previous CVA remote >= 2 weeks, diabetes mellitus with insulin treatment , chronic lung disease, previous diagnostic cath, tobacco history() : The patient is a current smoker , previous PCI (The PCI date was 09/02/2018), hypertension , previous CABG (The CABG date was 11/07/1998), dyslipidemia , Admitted with Unstable Angina, who has four weeks ago coronaries PTCA done as well as Left Carotid endarterectomy done, HX of AAA.. INDICATION The indication(s) include : unstable angina . CASE TECHNIQUE The patient was brought urgently to the Cardiac Catheterization Laboratory in a fasting state and was prepped and draped in a sterile manner. The right femoral groin was infiltrated with 2% Lidocaine subcutaneous anesthesia. A 6 Fr x 11 cm Diane sheath was inserted into the right femoral artery without difficulty. Coronary angiography was performed using coronary diagnostic catheters. The left coronary system was accessed and visualized with a Diagnostic catheter. The right coronary system was accessed and visualized with a Diagnostic ,5F JR 4 CATH DXT 100 CM catheter. The left ventricle was accessed and visualized with a 5F JR 4 CATH DXT 100 CM catheter. Left ventricular/Aortic Valve gradient assessed on pullback. Left ventriculogram was performed in CRAWFORD projection. Closure device was deployed with a 6 Fr / 7 Fr MynxGrip without any complications. The patient tolerated the procedure well and there were no complications associated with the procedure. Left main Could not be Canulated ( Multple cathetres as well Guiders used) nor seen on aortogram, Presumably Occluded. The right coronary artery is a medium size vessel with diffuse calcification noted throughout this vessel and with significant stenosis. There is a 100% stenosis in the proximal segment. The left internal mammary artery to the mid left anterior descending artery segment is patent . The saphenous vein graft to the mid right coronary artery occluded . Left Ventricle The left ventricle is enlarged in size with moderately decreased contractility. Ischemic cardiomyopathy. The left ventricular ejection fraction is estimated to be 30%. The left ventricular end diastolic pressure is 30 mmHg. There was no gradient across the aortic valve upon pullback. Conclusion Presumably Left main Occluded, As Lt. main colud not be canulated using Muliple catheters and Giuders nor seen in aortogram. proximal RCA occluded SVG to RCA poccluded Patent BOLANOS to LAD Moderately decreased LV FGX. EF-30%, EDP_ 30 mmof HG No Gradient across Aortic valve, But dilated aortic root. Recommendations Review cath reports from [facility] when available, where pt had cardiac cath /PTCA done four weeks ago. Coronary CT Angio to assess any remaing taget vessel for Re do CABG and define coronary anatomy. Interim Aggressive Medical Therapy, Beta blockers, ARB, Diuretic, spironolactone,nitrares and Statin, and primacor for 24-48 hours. Cc; dr. Dick.
--- NOTE | 2018-10-24 | PN ---
DATE: 10/23/2018 REFERRING PHYSICIAN: . REASON FOR CONSULTATION: Followup, unstable angina. HISTORY OF PRESENT ILLNESS: This is a 67-year-old male with a past medical history significant for coronary artery disease, status post CABG two-vessel bypass, possibly BOLANOS to LAD and SVG to RCA with multiple stents over the period of time. Recently, he had a coronary intervention 4 weeks ago at [facility] and left endarterectomy. He came in yesterday, admitted with unstable angina, seen by Dr. Montoya. Two weeks ago, the patient was seen by Dr. Tamayo and ordered for CAT scan of the abdomen. In view of the above, the patient was taken to the component lab tech. The risks, benefits and alternatives were explained to the patient. Cardiac catheterization revealed occluded left main, cannot be cannulated by any multiple catheter used and did not find any dye going into the left main on aortogram, but patent BOLANOS to LAD, occluded saphenous vein graft to the RCA and occluded [place] RCA. Plan is to continue gentle hydration, continue beta-will and nitrate. We will get the report from [facility] of most recent intervention. So far, troponin remains negative. Further recommendation depends upon the cath finding of [facility], possibly evaluate for redo CABG. In the interim, continue beta-will and nitrate. We will get echo to assess the LV function, though cath showed ejection fraction of around 25% to 30%. After this, may start some Primacor. We will follow with you. Thank you Dr. Dick for providing us the opportunity in taking care of Jefe Nunez. Further recommendation depending upon the hospital course. We will follow. Tammy Simental MD
--- NOTE | 2018-10-24 00:07 | PN ---
DATE: 10/23/2018 SUBJECTIVE: The patient is 67-year-old, seen and examined, had cardiac cath done, sitting in bed, seems to be comfortable. PHYSICAL EXAMINATION: VITAL SIGNS: Afebrile. Pulse 92, respirations 20, blood pressure 157/73. HEAD AND NECK: He had a recent left carotid endarterectomy done. LUNGS: Bilateral fair airflow. No rhonchi or crackle. HEART: S1, S2 audible. ABDOMEN: Soft, obese. Nontender. No rebound. No guarding. NEUROLOGICAL: The patient is awake, alert, oriented, communicative. LABORATORY DATA: Sodium 139, potassium 4, chloride 104, CO2 29, BUN 13, creatinine 0.6, blood sugar 136. ASSESSMENT: 1. Chest pain, seems to be typical. cardiac catheterization. Positive for [place] triple-vessel disease, however, he has saphenous vein graft to the right coronary artery. 2. Status post open heart surgery. 3. Hypertension. 4. Hyperlipidemia. 5. Status post left carotid endarterectomy. 6. Insulin-dependent diabetes. PLAN: The patient will be monitored today. We will resume all his medications. The patient needs to change his lifestyle strictly. He needs to lose weight. He needs to be compliant with his medication. He will be watched overnight, and we will be discharging in a.m. if he remains stable. Beto Dick MD
[2018-10-24 01:58] LABS: ALB/GLOB RATIO 1.1 (1.1-1.8); ALBUMIN 3.7 g/dL (3.0-4.8); ALT/SGPT 33 U/L (7-56); AST/SGOT 28 U/L (17-59); BLOOD UREA NITROGEN 16 mg/dL (7-21); CALCIUM 8.8 mg/dL (8.4-10.5); GFR NON-AFRICAN AMERICAN > 60
[2018-10-24 02:00] LABS: TROPONIN I < 0.01 ng/mL
[2018-10-24] MEDS ORDERED: Magnesium Sulfate 2 gm/50 ml 2 GM/50 ML BAG IVPB ONE (02:32)
[2018-10-24] MEDS: Milrinone 20mg/100ml D5W 100 ML IV PRN ×2 (04:47→19:37)
[2018-10-24 07:00] LABS: BASO # 0.02 K/mm3 (0.0-2.0); BASO % 0.2 % (0.0-3.0); EOS # 0.2 (0.0-0.7); EOS % 2.9 % (1.5-5.0); LYMPH # 1.5 (1.2-3.4); LYMPH % 17.7 % (22.0-35.0); MEAN CELL VOLUME 90.4 fl (80.0-105.0); MEAN CORPUSCULAR HEMOGLOBIN 29.6 pg (25.0-35.0); MEAN CORPUSCULAR HGB CONC 32.8 g/dl (31.0-37.0); MEAN PLATELET VOLUME 9.8 fl (7.0-11.0); MONO # 0.5 (0.1-0.6); MONO % 6.2 % (1.0-6.0); RBC 4.05 10^6/uL (3.5-6.1); WHITE BLOOD COUNT 8.2 10^3/uL (4.5-11.0)
[2018-10-24 07:09] LABS: ALB/GLOB RATIO 1.2 (1.1-1.8); ALBUMIN 3.6 g/dL (3.0-4.8); ALT/SGPT 38 U/L (7-56); AST/SGOT 23 U/L (17-59); BLOOD UREA NITROGEN 15 mg/dL (7-21); CALCIUM 9.1 mg/dL (8.4-10.5); GFR NON-AFRICAN AMERICAN > 60; HDL CHOLESTEROL 32 mg/dL (29-60)
[2018-10-24 07:19] LABS: LDL CHOLESTEROL 115 mg/dL (0-129)
[2018-10-24] MEDS: Insulin Lispro (humaLOG) MEDIUM Coverage SC SCH ×4 (08:13→22:26)
[2018-10-24] MEDS: Enoxaparin 30 mg Syringe SC SCH (10:12)
--- NOTE | 2018-10-24 11:28 | CARD ---
APPROVED REPORT Date of service: 10/24/2018 EKG Measurement Heart [id number] <Conclusion> Sinus rhythm with occasional premature ventricular complexes Inferior infarct, age undetermined NSSTW changes Prolonged QTC No change
--- NOTE | 2018-10-24 14:34 | CP.PCM.PCO ---
Physician Communication Note - Physician Communication Note Physician Communication Note: EF 30% continue primicor drip as per cardiology
--- NOTE | 2018-10-24 15:16 | PN ---
DATE: 10/24/2018 REFERRING PHYSICIAN: Tammy Simental MD REASON FOR CONSULTATION: Followup coronary artery disease, acute coronary syndrome, unstable angina. SUBJECTIVE: The patient denies any chest pain, shortness of breath, or any palpitations. OBJECTIVE: GENERAL: Not in apparent distress. PHYSICAL EXAMINATION: As follows: VITAL SIGNS: Temperature afebrile, heart rate 91, and blood pressure 121/58. HEENT: PERRLA. Extraocular muscles intact. NECK: Supple. No carotid bruit. No thyromegaly. CHEST: Clear to auscultation. HEART: S1 and S2 are regular. ABDOMEN: Soft. EXTREMITIES: Clubbing and cyanosis negative. LABORATORY DATA: Blood workup as follows: WBC 8.3, hemoglobin 12, hematocrit 36.6, and platelet count 310. Chemistry shows sodium 130, potassium 4, chloride 100, carbon dioxide 31, anion gap of 11, BUN 15, and creatinine 0.5. Troponin remains flat, total bili 6.7, albumin 3.6, albumin globulin ratio 3.1. IMPRESSION: A 67-year-old male with past medical history significant for coronary artery disease status post coronary artery bypass surgery two-vessel bypass in June 1999 at [facility], possibly left internal mammary artery to left anterior descending artery and possibly saphenous vein graft to right coronary artery, who had multiple stents over the course of time. Recently, the patient had a coronary intervention and a stent done at [place] as well as left carotid artery endarterectomy. While admitted here with chest pain, troponin remains negative, unstable angina, acute coronary syndrome. The patient underwent cardiac catheterization on an emergent basis that revealed [place] peripheral vascular disease, occluded right coronary artery, left main cannot be cannulated by multiple catheters and used could not be engaged as well as did not show an aortogram presumably occluded, patent left internal mammary artery to left anterior descending giving collaterals, occluded saphenous vein graft to right coronary artery. Left ventricular function ejection fraction on 30%. The patient subsequently underwent echocardiogram to assess the left ventricular function as well, that echocardiogram revealed ejection fraction 30% to 35%, mild aortic regurgitation, trace to mild mitral regurgitation, mild tricuspid regurg, RV systolic pressure 34, multiple wall motion abnormalities consistent with coronary artery disease, mildly dilated ascending aorta. RECOMMENDATIONS: Awaiting for the cath report from the [place] to see whether this occlusion of left main is a new or defined coronary anatomy. Once the report from the [place] arrives, we will review it. Also, the patient may need a CT angio to assess the remaining target vessels for redo CABG and define the coronary anatomy. Interim, continue beta-will. We will add diuretics, angiotensin-receptor will, spironolactone, nitrates, and statin, aggressive medical treatment for 24 to 48 hours. Continue Primacor. Optimize aggressive medical treatment, then reevaluate for revascularization. Also, we will discuss this case with the [facility]. Once the report is available, we will consider CT angio. We will discuss with Dr. Dick. Thank you Dr. Dick for providing us the opportunity in taking care of the patient, Jefe Nunez. Tammy Simental MD
--- NOTE | 2018-10-24 15:34 | PN ---
DATE: SUBJECTIVE: The patient is 67 years old, seen and examined, lying in bed, seems to be comfortable, complains of shortness of breath Primacor drip as per Cardiology recommendations. PHYSICAL EXAMINATION VITAL SIGNS: He is afebrile, pulse 79, respirations 20, blood pressure 118/71. LUNGS: Bilateral fair airflow. No rhonchi or crackles. HEART: S1 and S2 audible. ABDOMEN: Soft, obese, nontender. No rebound, no guarding. NEUROLOGIC: The patient is awake, alert, oriented, communicative, ambulatory. LABORATORY EXAM: WBC is 8.2, hemoglobin 12, hematocrit 36, platelets 310. Chemistry: Sodium 138, potassium 4.1, chloride 100, CO2 31, BUN 15, creatinine 0.6, blood sugar 37. EKG shows sinus rhythm with occasional PVCs and long QTC interval. ASSESSMENT: 1. Chest pain status post cardiac catheterization and was found to have triple-vessel disease and occluded saphenous vein graft to right coronary artery; however, he has patent left internal mammary artery to left anterior descending. 2. Coronary artery disease. 3. Cardiomyopathy. 4. Congestive heart failure. 5. Chronic obstructive pulmonary disease. 6. Morbid obesity. 7. Uncontrolled diabetes. PLAN: Currently, the patient is on Primacor drip. Cardiology input note appreciated. I will discontinue Carafate. I will increase his glimepiride to before breakfast, before dinner. We will monitor blood sugar. If the patient remained stable, possible discharge plan in a.. Beto Dick MD (Delete this signature block when dictator is a preceptor.)
[2018-10-25 02:27] VITALS: RESP 20
[2018-10-25 06:24] VITALS: TEMP 98; O2SAT 97
[2018-10-25 07:27] LABS: BASO # 0.02 K/mm3 (0.0-2.0); BASO % 0.2 % (0.0-3.0); EOS # 0.4 (0.0-0.7); EOS % 4.4 % (1.5-5.0); GRAN # 6.02 (1.4-6.5); GRAN % 70.8 % (50.0-68.0); HEMOGLOBIN 12.1 g/dL (14.0-18.0); LYMPH # 1.4 (1.2-3.4); LYMPH % 16.4 % (22.0-35.0); MEAN CELL VOLUME 90.5 fl (80.0-105.0); MEAN CORPUSCULAR HEMOGLOBIN 29.6 pg (25.0-35.0); MEAN CORPUSCULAR HGB CONC 32.7 g/dl (31.0-37.0); MONO # 0.7 (0.1-0.6); MONO % 8.2 % (1.0-6.0); RBC 4.09 10^6/uL (3.5-6.1); WHITE BLOOD COUNT 8.5 10^3/uL (4.5-11.0)
[2018-10-25 07:36] LABS: BLOOD UREA NITROGEN 13 mg/dL (7-21); GFR NON-AFRICAN AMERICAN > 60
[2018-10-25] MEDS: Insulin Lispro (humaLOG) MEDIUM Coverage SC SCH ×2 (08:08→12:25)
--- NOTE | 2018-10-25 08:30 | PN ---
DATE: 10/24/2018 SEX OF THE PATIENT: Male. AGE OF THE PATIENT: 67. REASON FOR DICTATION: A 70 pages' report from [facility] came in the fax and reviewed and summarized as follows: 1. The patient had a PICC line on the left basilic vein because of the poor venous access on 08/10/2018. 2. The patient had carotid Doppler done on 07/27/2018 that shows suspicious of a left internal carotid artery occluded. 3. The patient had carotid angiogram on 08/14/2018 that shows patient stent in right common carotid extending to the right Internal carotid artery was patent, but left Internal carotid artery has 90 to 99% internal carotid arterial stenosis. 4. The patient is status post left carotid artery endarterectomy done on 08/08/2018 with the venous patch applied. 5. The patient had echocardiography done 07/27/2018 that shows ejection fraction of 42% mild mitral regurgitation, mild tricuspid regurgitation, trace to mild aortic regurgitation. 6. The patient had multiple times blood culture done 08/03/2017 to 08/12/2017 and all showed negative, no blood culture remained positive, no sepsis. 7. The patient had a cardiac catheterization on 08/13/2018 as well as percutaneous transluminal coronary angioplasty of the circumflex done. At that time the cardiac catheterization revealed normal left Main, Left anterior descending mid occluded, Circumflex has a mid 80% stenosis, right coronary artery was occluded, Saphenous venous graft to the right coronary artery as well as OM2 were known to be occluded as per cath report. BOLANOS was patent. At that time the percutaneous transluminal coronary angioplasty of the circumflex was done dated 08/13/2018. So it shows that after the intervention left mid occluded, they used [place] left 4.5 catheter, which was used here, but cannot be cannulated on recent cath at [place] looks like left main after intervention occluded. So the plan is now to continue to Primacor for next 24 hours to get maximum optimized medical treatment, to give the maximum benefit. Continue spironolactone 25 mg daily, continue the baseline sugar medication, continue losartan 25 mg daily, continue baby aspirin 81 mg daily, continue Imdur 30 mg daily, continue Lasix 40 mg daily, continue atorvastatin daily 10 mg, continue metoprolol 25 mg daily, Plavix 75 mg daily, Baby asa 81 mg po daily. We will discontinue milrinone tomorrow at 7 am and reevaluate the patient for open heart surgery at [facility]. A call has been placed in both hospitals' surgeons to discuss and before the patient goes we will make an appointment to see the surgeon as outpatient either at [facility] and [facility] depending upon their availability as outpatient. The patient has currently no anginal symptoms, optimize medical treatment and we will discharge on current medications. We will discuss also with Dr. Dick. We will repeat the blood workup tomorrow; CBC, CMP and magnesium phosphate to monitor the renal function. Further recommendation will depend upon the hospital course. Thank you Dr. Dick for providing an opportunity in taking care of the Said Volborg. The patient, when he came in, was not on optimal medical treatment, so I optimized medical treatment before he goes to the home. Tammy Simental MD MTDD
[2018-10-25] MEDS: Enoxaparin 30 mg Syringe SC SCH (10:22)
[2018-10-25 10:23] VITALS: BP 117/60; PULSE 88
--- NOTE | 2018-10-25 12:50 | PN ---
DATE: 10/25/2018 REASON FOR CONSULTATION: Follow up coronary artery disease, admitted with unstable angina, acute coronary syndrome, status post cardiac catheterization, history of CABG, history of recent coronary intervention at [facility] four weeks ago. SUBJECTIVE: The patient denies any chest pain, shortness of breath, or any palpitation. He feels a lot better. Primacor was just discontinued. PHYSICAL EXAMINATION: GENERAL: The patient is sitting in the chair comfortably. VITAL SIGNS: Temperature afebrile, heart rate 83, and blood pressure 141/71. HEENT: PERRLA. Extraocular muscles intact. NECK: Supple. No carotid bruit. No thyromegaly. CHEST: Clear to auscultation. HEART: S1 and S2 regular. ABDOMEN: Soft. EXTREMITIES: Clubbing and cyanosis negative. LABORATORY DATA: Blood workup as follows: WBC 8.5, hemoglobin 12 ____, hematocrit 37, and platelet count 307. Chemistry shows sodium 139, potassium 4.4, chloride 102, carbon dioxide 32, anion gap of 10, BUN 13, and creatinine 0.7. IMPRESSION: This is a 67-year-old male with past medical history significant for coronary artery disease, history of coronary artery bypass surgery at [facility] ([facility] in 06/1999, two-vessel bypass, possibly left internal mammary artery to left anterior descending artery and saphenous vein graft to right coronary artery was done. During the course of time, the patient had multiple stents at [facility] initially by and most recently the patient was admitted four to six weeks ago at [facility] where the patient had multiple blood culture done and found to be negative. The patient had sepsis, non-STEMI and the patient underwent stent on the circumflex as well as found to be left carotid artery critical stenosis. The patient underwent carotid artery endarterectomy of left carotid at [place]. At that time, the coronary angio showed patent stent to right carotid. The patient has history of diabetes and hypertension at baseline, ex-smoker, admitted here with crushing chest pain, underwent cardiac catheterization that revealed patent left internal mammary artery to left anterior descending artery, occluded saphenous graft to right coronary artery. Left main cannot be cannulated, multiple catheters as well as guidewires used, presumably occluded, so chart reviewed from the [place]. Though the patient recently four weeks ago had intervention done possibly after coronary intervention left main occluded. RECOMMENDATIONS: Plan is now to continue aggressive medical treatment including isosorbide nitrate 30 mg daily, Plavix 5 mg daily, aspirin 81 mg daily, losartan 25 mg daily, spironolactone 25 mg daily, atorvastatin 10 mg daily, Lasix 40 mg daily, metoprolol 25 mg daily in addition to baseline medication glimepiride for sugar. The patient would be discharged and arrangement has been made to see Dr. Felix Lomeli at [facility], telephone #[phone]. This telephone number was also given to the patient and Dr. Lomeli's office also contacted yesterday the patient to get more information for insurance. Referral has been also sent and all the documents including CAT films, echo films have been [employer] to Dr. Lomeli's office who is going to review the patient as well as the plan is to do CT angio to see any coronary target for redo surgery. If the patient is deemed not to be a candidate for surgical intervention, then we will arrange in three weeks to assess LV function and possibly ICD placement. All these above explained to the patient in detail and he understood and he appreciated that. For now, continue aggressive medical treatment and reevaluation with surgeon for possible intervention and if no intervention, then the ICD. Thank you Dr. Dick for providing us the opportunity in taking care of the patient, Said Enrique. Tammy Siemntal MD
== END 2018-10-25 13:28 | disposition home or self-care (01) | DRG 286 ==
LOC: ED 02:20 → ERH 04:23 → 2RNO 16:24 → 2RSO 10-23 11:53 → OBSVTOIN 10-23 18:28 → 2RSO 10-24 17:35
PROVIDERS: ADMIT Internal Medicine; ATTEND Internal Medicine
PROC: 4A023N7 Measurement of Cardiac Sampling and Pressure, Left Heart, Percutaneous Approach (ICD-10-PCS; principal; 2018-10-23)
PROC: B2110ZZ Fluoroscopy of Multiple Coronary Arteries using High Osmolar Contrast (ICD-10-PCS; 2018-10-23)
PROC: B2151ZZ Fluoroscopy of Left Heart using Low Osmolar Contrast (ICD-10-PCS; 2018-10-23)
DX: I25.110 Atherosclerotic heart disease of native coronary artery with unstable angina pectoris (principal); I50.23 Acute on chronic systolic (congestive) heart failure; F17.200 Nicotine dependence, unspecified, uncomplicated; E78.5 Hyperlipidemia, unspecified; Z79.82 Long term (current) use of aspirin; Z79.899 Other long term (current) drug therapy; Z79.1 Long term (current) use of non-steroidal anti-inflammatories (NSAID); E66.01 Morbid (severe) obesity due to excess calories; Z68.39 Body mass index [BMI] 39.0-39.9, adult; Z79.4 Long term (current) use of insulin; Z79.02 Long term (current) use of antithrombotics/antiplatelets; Z91.19 Patient's noncompliance with other medical treatment and regimen; J44.9 Chronic obstructive pulmonary disease, unspecified; Z95.5 Presence of coronary angioplasty implant and graft; Z86.79 Personal history of other diseases of the circulatory system; I50.9 Heart failure, unspecified; I11.0 Hypertensive heart disease with heart failure; E10.51 Type 1 diabetes mellitus with diabetic peripheral angiopathy without gangrene; E10.65 Type 1 diabetes mellitus with hyperglycemia; G47.30 Sleep apnea, unspecified; H40.9 Unspecified glaucoma; H91.92 Unspecified hearing loss, left ear; I25.2 Old myocardial infarction; I25.5 Ischemic cardiomyopathy; I65.22 Occlusion and stenosis of left carotid artery; I77.810 Thoracic aortic ectasia; N40.0 Benign prostatic hyperplasia without lower urinary tract symptoms; G89.29 Other chronic pain; M54.5 Low back pain; I08.3 Combined rheumatic disorders of mitral, aortic and tricuspid valves; Z86.73 Personal history of transient ischemic attack (TIA), and cerebral infarction without residual deficits

== ENCOUNTER 2018-11-01 20:02 | Observation (INO) | payer MEDICARE, MEDICAID ==
[2018-11-01 20:36] LABS: HEMOGLOBIN 12.3 g/dL (14.0-18.0); MEAN CELL VOLUME 90.3 fl (80.0-105.0); MEAN CORPUSCULAR HEMOGLOBIN 29.8 pg (25.0-35.0); MEAN PLATELET VOLUME 9.6 fl (7.0-11.0); RBC 4.13 10^6/uL (3.5-6.1); RED CELL DISTRIBUTION WIDTH 13.5 % (11.5-14.5); WHITE BLOOD COUNT 9.4 10^3/uL (4.5-11.0)
[2018-11-01] MEDS ORDERED: Nitroglycerin 2% Ointment Foilpak UD TOP STA (20:36)
[2018-11-01 20:45] LABS: INR 1.05; PARTIAL THROMBOPLASTIN TIME 29.1 Seconds (25.1-36.5)
[2018-11-01 20:49] LABS: ALB/GLOB RATIO 1.2 (1.1-1.8); ALBUMIN 4.3 g/dL (3.0-4.8); ALT/SGPT 23 U/L (7-56); AST/SGOT 26 U/L (17-59); BLOOD UREA NITROGEN 14 mg/dL (7-21); CALCIUM 9.1 mg/dL (8.4-10.5); GFR NON-AFRICAN AMERICAN > 60
--- NOTE | 2018-11-01 20:56 | ED PDOC ---
Arrival/HPI - General Chief Complaint: Chest Pain Time Seen by Provider: 11/01/18 20:05 Historian: Patient - History of Present Illness Narrative History of Present Illness (Text): 11/01/18 20:10 67 year old male, whose past medical history includes hypertension, hyperlipidemia, diabetes, COPD, aortic aneurysm, CAD multiple cardiac stents, CABG, for eval of intermittent chest discomfort since yesterday. Patient describes the pain as a brief crushing sensation. Patient was recently in [facility] with similar symptoms.Patient underwent an angiography which revealed occluded coronary vessels, not amenable to stent placement. Patient treated medically and referred to doctor at [facility], but states he has not followed up as of yet. Patient denies any fever, chills, chest pain, shortness of breath, nausea, vomiting, diarrhea, urinary symptoms, back pain, neck pain, headache, dizziness, or any other complaints. Time/Duration: 24 hours Symptom Onset: Gradual Activities at Onset: Light Context: Home Past Medical History - Provider Review Nursing Documentation Reviewed: Yes - Infectious Disease Hx of Infectious Diseases: None - Tetanus Immunization Tetanus Immunization: Unknown - Cardiac Hx Cardiac Disorders: Yes Hx Angina: Yes Hx Cardiac Arrhythmia: Yes Hx Congestive Heart Failure: Yes - Pulmonary Hx Respiratory Disorders: Yes Hx Asthma: Yes Hx Chronic Obstructive Pulmonary Disease (COPD): Yes Hx Sleep Apnea: Yes (does not use his cpap) Other/Comment: chronic smoker cough - Neurological Hx Neurological Disorder: Yes Hx Dizziness: Yes - HEENT Hx HEENT Disorder: Yes Hx Cataracts: Yes (Bilateral Cataract surgery) Hx Glaucoma: Yes Other/Comment: LASER SURGERY FOR GLAUCOMA. SURGERY FOR TRAUMA TO LEFT EAR, work related, was working and metal flew into eardrum, hearing impaired left ear - Renal Hx Renal Disorder: No - Endocrine/Metabolic Hx Endocrine Disorders: Yes Hx Diabetes Mellitus Type 1: Yes Hx Diabetes Mellitus Type 2: Yes - Hematological/Oncological Hx Blood Disorders: No - Integumentary Hx Dermatological Disorder: Yes Other/Comment: dry skin multiple skin discolorations ble, DRY LESIONS - Musculoskeletal/Rheumatological Hx Falls: No - Gastrointestinal Hx Gastrointestinal Disorders: Yes Other/Comment: HX: 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 - Genitourinary/Gynecological Hx Genitourinary Disorders: Yes Hx Prostate Problems: Yes (BPH) Other/Comment: Takes Flomax - Psychiatric Hx Psychophysiologic Disorder: No Hx Substance Use: No - Surgical History Hx Cardiac Catheterization: Yes - Anesthesia Hx Anesthesia: Yes Hx Anesthesia Reactions: No Hx Malignant Hyperthermia: No - Suicidal Assessment Feels Threatened In Home Enviroment: No Family/Social History - Physician Review Nursing Documentation Reviewed: Yes Family/Social History: No Known Family HX Smoking Status: Heavy Smoker > 10 Cigarettes Daily Hx Alcohol Use: No Hx Substance Use: No Allergies/Home Meds Allergies/Adverse Reactions: Allergies No Known Allergies Allergy (Verified 10/22/18 02:31) Home Medications: Home Meds Medication Instructions Recorded Confirmed Aspirin [Ecotrin] 81 mg PO DAILY 01/05/18 11/02/18 Clopidogrel [Plavix] 1 tab PO DAILY 01/05/18 11/02/18 Metoprolol Succinate 25 mg PO DAILY 01/05/18 11/02/18 Albuterol 0.042% [Albuterol 0.042% 3 ml IH TID 02/28/18 11/02/18 Inhal Diana (1.25mg/3ml) UD] Ammonium Lactate 12% [Lac-Hydrin 12 % TP BID 02/28/18 11/02/18 12% Cream (140 g)] Glimepiride [amaRYL] 4 mg PO DAILY 02/28/18 11/02/18 Ketoconazole 2% Cr [Nizoral] 15 applic TOP BID 02/28/18 11/02/18 Liraglutide [Victoza 3-Dominick] 6 mg SC DAILY 02/28/18 11/02/18 Furosemide [Lasix] 40 mg PO DAILY 10/25/18 11/02/18 Atorvastatin [Lipitor] 10 mg PO DIN 11/02/18 11/02/18 Dutasteride [Avodart] 0.5 mg PO DAILY 11/02/18 11/02/18 Enalapril Maleate [Vasotec] 1 tab PO DAILY 11/02/18 11/02/18 Esomeprazole Magnesium [Nexium] 40 mg PO DAILY 11/02/18 11/02/18 Isosorbide Mononitrate [Isosorbide 60 mg PO DAILY 11/02/18 11/02/18 Mononitrate ER] Lactulose [Enulose] 10 gm PO DAILY PRN 11/02/18 11/02/18 Potassium Chloride [Klor-Con M10] 10 meq PO DAILY 11/02/18 11/02/18 Promethazine HCl/Codeine 5 ml PO PRN PRN 11/02/18 11/02/18 [Prometh-Codein 6.25-10 mg/5 ml] Ticagrelor [Brilinta] 90 mg PO DAILY 11/02/18 11/02/18 Umeclidinium Gillespie [Incruse 62.5 mcg IH DAILY 11/02/18 11/02/18 Ellipta] Vit B Complx/Folic AC/C/Biotin 1 each PO DAILY 11/02/18 11/02/18 [Folika-T Tablet] Review of Systems - Physician Review All systems were reviewed & negative as marked: Yes - Review of Systems Constitutional: absent: Fevers, Other (Chills) Respiratory: absent: SOB, Cough Cardiovascular: Chest Pain Gastrointestinal: absent: Diarrhea, Nausea, Vomiting Genitourinary Male: absent: Dysuria, Frequency, Hematuria Musculoskeletal: absent: Back Pain, Neck Pain Neurological: absent: Headache, Dizziness Physical Exam Vital Signs Reviewed: Yes Vital Signs Temp Pulse Resp BP Pulse Ox 11/01/18 20:26 98.8 F 97 H 22 147/96 H 99 Temperature: Afebrile Blood Pressure: Hypertensive Pulse: Tachycardic Respiratory Rate: Normal Appearance: Positive for: Well-Appearing, Non-Toxic, Comfortable Pain Distress: None Mental Status: Positive for: Alert and Oriented X 3 - Systems Exam Head: Present: Atraumatic, Normocephalic Pupils: Present: PERRL Extroacular Muscles: Present: EOMI Conjunctiva: Present: Normal Mouth: Present: Moist Mucous Membranes Neck: Present: Normal Range of Motion Respiratory/Chest: Present: Clear to Auscultation, Good Air Exchange. No: Respiratory Distress, Accessory Muscle Use Cardiovascular: Present: Regular Rate and Rhythm, Normal S1, S2. No: Murmurs Abdomen: No: Tenderness, Distention, Peritoneal Signs Back: Present: Normal Inspection Upper Extremity: Present: Normal Inspection. No: Cyanosis, Edema Lower Extremity: Present: Normal Inspection. No: Edema Neurological: Present: GCS=15, CN II-XII Intact, Speech Normal Skin: Present: Warm, Dry, Normal Color. No: Rashes Psychiatric: Present: Alert, Oriented x 3, Normal Insight, Normal Concentration Medical Decision Making ED Course and Treatment: 11/01/18 20:45 Impression: 67 year old male presents complaining of intermittent chest discomfort since yesterday. Plan: -- EKG -- Labs -- Chest X-ray -- Aspirin, Nitro-Bid 2% Oint -- Reassess and disposition Prior Visits: Notes and results from previous visits were reviewed. Progress Notes: 11/01/18 20:10 EKG shows Sinus tachycardia at 102 BPM with occasional PVC. Interpreted by me. 11/01/18 21:46 CXR Impression: As read by me, cardiomegaly, no acute changes. 11/02/18 02:[address] Dick who is aware and agrees with the plan. Accepts patient into her service. Requests Dr. Simental for consult. - Lab Interpretations Lab Results: 11/01/18 20:25 11/01/18 20:25 Lab Results 11/01/18 20:25: WBC 9.4, RBC 4.13, Hgb 12.3 L, Hct 37.3 L, MCV 90.3, MCH 29.8, MCHC 33.0, RDW 13.5, Plt Count 349, MPV 9.6 11/01/18 20:25: Sodium 135, Potassium 3.6, Chloride 102, Carbon Dioxide 26, Anion Gap 12, BUN 14, Creatinine 0.6 L, Est GFR ( Amer) > 60, Est GFR (Non-Af Amer) > 60, Random Glucose 168 H, Calcium 9.1, Total Bilirubin 0.3, AST 26, ALT 23, Alkaline Phosphatase 128 H D, Lactate Dehydrogenase 308 L, Total Creatine Kinase 42, Troponin I Pending, Total Protein 7.7, Albumin 4.3, Globulin 3.4, Albumin/Globulin Ratio 1.2 11/01/18 20:25: PT 12.0, INR 1.05, APTT 29.1 I have reviewed the lab results: Yes - RAD Interpretation Radiology Orders: 11/01/18 20:15 CHEST PORTABLE [RAD] Stat Incident Response Consultant: ED Physician - EKG Interpretation Interpreted by ED Physician: Yes Type: 12 lead EKG - Medication Orders Current Medication Orders: Discontinued Medications Aspirin (Aspirin) 325 mg PO ONCE STA Stop: 11/01/18 20:37 Last Admin: 11/01/18 20:47 Dose: 325 mg Nitroglycerin (Nitro-Bid 2% Oint) 1 ea TOP ONCE STA Stop: 11/01/18 20:37 Last Admin: 11/01/18 20:47 Dose: 1 ea - Scribe Statement The provider has reviewed the documentation as recorded by the Rema Mayfield Provider Rema Attestation: All medical record entries made by the Harrisonibmarisa were at my direction and per sonally dictated by me. I have reviewed the chart and agree that the record accurately reflects my personal performance of the history, physical exam, medical decision making, and the department course for this patient. I have also personally directed, reviewed, and agree with the discharge instructions and disposition. Disposition/Present on Arrival - Present on Arrival Any Indicators Present on Arrival: No History of DVT/PE: No History of Uncontrolled Diabetes: Yes Urinary Catheter: No History of Decub. Ulcer: No History Surgical Site Infection Following: None - Disposition Have Diagnosis and Disposition been Completed?: Yes Diagnosis: Chest pain Disposition: HOSPITALIZED Disposition Time: 01:57 Condition: STABLE
[2018-11-01 21:02] LABS: TROPONIN I 0.01 ng/mL
[2018-11-02 03:57] VITALS: BMI 31.3
[2018-11-02 06:27] VITALS: TEMP 98.2
--- NOTE | 2018-11-02 09:31 | RAD ---
Date of service: 11/01/2018 HISTORY: chest pain COMPARISON: 10/22/2018 FINDINGS: LUNGS: No active pulmonary disease. PLEURA: No significant pleural effusion identified, no pneumothorax apparent. CARDIOVASCULAR: No aortic atherosclerotic calcification present. Mild cardiomegaly. Aortic tortuosity no pulmonary vascular congestion. OSSEOUS STRUCTURES: Sternal wires VISUALIZED UPPER ABDOMEN: Normal. OTHER FINDINGS: None. IMPRESSION: No active disease.
[2018-11-02] MEDS ORDERED: Metoprolol Succinate 25 mg XL Tab PO SCH (10:00)
[2018-11-02] MEDS ORDERED: ENALAPRIL MALEATE 2.5 MG PO SCH (10:00)
[2018-11-02] MEDS ORDERED: Potassium Chloride 10 mEq ER Tab PO SCH (10:00)
[2018-11-02 10:06] VITALS: PULSE 84
--- NOTE | 2018-11-02 11:40 | CON ---
DATE: 11/02/2018 CARDIOLOGY CONSULTATION REASON FOR CONSULTATION AND FOLLOWUP: Chest pain, unstable angina, history of coronary artery disease, history of CABG, history of PTCA and cardiac evaluation. BRIEF CLINICAL HISTORY: A 67-year-old male with past history significant for coronary artery disease, CABG, history of multiple stents, history of recent coronary intervention 4 weeks ago at [facility], history of carotid artery endarterectomy who recently admitted 2 weeks ago with unstable angina. The patient had cardiac catheterization only patent BOLANOS to LAD and was referred for [facility] for redo CABG, but apparently the patient did not get there, yesterday admitted with the chest pain, so far troponin remains negative. Says that chest pain is very very hard as he came to hospital. Past history significant for coronary artery disease, history of CABG two vessels at [facility] in 1998 with BOLANOS was grafted to LAD and SVG to RCA. Over the course of the time, the patient has multiple stent and done most recently the patient had coronary intervention done with circumflex at [facility] who had a cardiac catheterization done here at [facility] on 10/23/2018 where only grafted patent BOLANOS to LAD was noted. Occluded SVG to RCA, occluded chickahominy indian tribe RCA and occluded left main and the patient was referred for redo CABG with medical treatment as an outpatient, Dr.Mo Lomeli to [facility] with a thoracic surgeon, Dr. Felix Lomeli, but apparently the patient did not go there. MOST RECENT CARDIAC WORKUP FOLLOWS: The patient was admitted to [facility] and ultimately because of the fax form at the [place] on 10/24/2018 and reviewed all the information from [place] that include as follows, 1. The patient had a PICC line on the left basilic vein because of the poor venous access on 08/10/2018. 2. 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 3. The patient had carotid angiogram done on that shows patient stent in right common carotid artery in going to Internal carotid artery, but left internal carotid artery has 90 to 99% stenosis noted. 4. The patient is status post left carotid endarterectomy done on 08/08/2018. 5. The patient had echocardiography done at [facility] on 07/27/2018 that showed ejection fraction of 42% mild mitral, mild tricuspid regurgitation, ykamh-ac-uqdy aortic regurgitation, mild mitral regurgitation. 6. The patient had multiple times blood culture done 08/03/2017 to 08/12/2017 that shows negative, no blood culture positive for sepsis. 7. The patient had a cardiac catheterization on 08/13/2018 at [facility] with stenting of the circumflex was done. At that time the cardiac catheterization revealed normal main, left anterior descending artery occluded, circumflex has a mid 80% stenosis which was stented, right coronary artery was occluded, saphenous graft to the right coronary artery was occluded as well as obtuse marginal 2 graft is occluded. Patent BOLANOS to LAD. As mentioned, the patient's repeat cardiac catheterization on 10/23/2018 at [facility] done with only patent BOLANOS to LAD, rest of the graft as well as chick[place]om[place] indian tribe artery was occluded and the patient was sent for redo CABG evaluation after CT angio if any vessels remaining is a target for redo CABG, but apparently the patient did not go there. The patient had echocardiography on 10/23/2018 at [facility] that revealed mild concentric LVH, systolic function moderately impaired 30% to 35%, mild aortic regurgitation, vwyqf-no-lmsf mitral regurgitation, pyofr-ex-afek tricuspid regurgitation, RV systolic pressure 34, aortic root is mildly dilated, ascending aorta is mildly dilated, IVC is dilated. No pericardial effusion. CURRENT MEDICATIONS: The patient is taking at home vitamin B complex, Brilinta 90 mg twice a day, metoprolol succinate 25 mg daily, isosorbide nitrate 30 mg daily, glimepiride, Lasix 40 mg daily, enalapril 10 was discontinued, atorvastatin and albuterol. ALLERGIES: NO KNOWN DRUG ALLERGY. SOCIAL HISTORY: Denies any history of smoking. Denies any history of alcohol abuse. REVIEW OF SYSTEMS: As per HPI. PHYSICAL EXAMINATION: GENERAL: Height of the patient 5 feet 7 inches. Weight of the patient 200 pounds. Body mass index 31.3 kg/m2. VITAL SIGNS: Temperature afebrile, heart is 64 and blood pressure 124/70. HEENT: PERRLA. Extraocular muscles intact. NECK: Supple. No carotid bruits or thyromegaly. CHEST: Clear to auscultation. HEART: S1 and S2, regular. ABDOMEN: Soft. EXTREMITIES: Clubbing and cyanosis negative. LABORATORY DATA: Blood work as follows, WBC 9.4, hemoglobin 12.3, hematocrit 37.3 and platelet count 349. Chemistry shows sodium 135, potassium 3.6, chloride 102, carbon dioxide 26, anion gap of 12, BUN 14, creatinine 0.6, and troponin 0.01, negative. EKG shows normal sinus, occasional PVCs. No acute ST-T changes noted. IMPRESSION: Unstable angina, diabetes, hypertension, hyperlipidemia, coronary artery disease, status post coronary artery bypass surgery in 1998 two vessels at [facility], saphenous vein graft to right coronary artery and left internal mammary artery to left anterior descending in 1998, admitted with unstable angina, history of coronary intervention 4-6 weeks ago at [facility] with circumflex. Last catheterization shows possibly occluded left main, only patent left internal mammary artery, ejection fraction 30-35%, history of ascending aortic aneurysm mildly dilated, diabetes, hypertension and hyperlipidemia. RECOMMENDATION: Medical treatment increasing total 60 mg daily, and we will start Ranexa 500 mg p.o. twice daily as outpatient in addition to the baseline medication. We will follow with you. Thank you Dr. Dick in providing this opportunity in taking care of patient, Jefe Nunez. We will get another stent, troponin. If troponin remains negative, possibly discharge home on Ranexa. Followup at [facility]. Tammy Simental MD GAYATHRI
[2018-11-02 11:49] LABS: TROPONIN I 0.55 ng/mL
[2018-11-02 12:55] VITALS: BP 139/70; RESP 20; O2SAT 95
[2018-11-02 13:00] LABS: TROPONIN I 0.66 ng/mL
--- NOTE | 2018-11-02 14:16 | HP ---
DATE OF EXAM: 11/02/2018 HISTORY OF PRESENT ILLNESS: The patient is a 67-year-old who was recently admitted and discharged after he had chest pain crushing. He responded well to sublingual nitroglycerine and his usual medication. The patient was admitted on 10/23/2018 and was discharged on 10/25/2018 and he was advised to follow up with thoracic surgeon for possible CABG because his cardiac cath shows triple vessel disease, but the patient states he did not receive any call from anybody and he got his chest pain again so he came to emergency room for further evaluation. PAST MEDICAL HISTORY: The patient states his past medical history is significant for; 1. Coronary artery disease. 2. Status post cardiac cath in [place] 6 to 8 weeks ago. 3. Recent left carotid endarterectomy. 4. Hypertension. 5. Hyperlipidemia. 6. Bdi-pinjsar-nhihazfxe diabetes. ALLERGIES: NOT ALLERGIC ANY MEDICATION. MEDICATION AT HOME: He is on Amaryl 4 mg daily, Plavix 75 mg daily, aspirin 81 mg daily, Lasix 40 mg daily, metoprolol 25 mg daily. He is on Victoza with multivitamins, Incruse Ellipta. He was recently discharged on Brilinta and his Plavix was discontinued. He has been started on isosorbide, enalapril, Avodart, and atorvastatin. SOCIAL HISTORY: He is single, lives by himself. He used to be smoker, but quit a couple of years ago. PHYSICAL EXAMINATION GENERAL: He states he feels lot better now. VITAL SIGNS: Afebrile, pulse 88, respirations 20, blood pressure 117/60. LUNGS: Bilateral fair air flow. No rhonchi or crackle. HEART: S1, S2 audible. ABDOMEN: Soft, obese, nontender. No rebound. No guarding. NEUROLOGIC: The patient is awake, alert, oriented, and communicative. LABORATORY DATA: WBC 9.4, hemoglobin 12.3, hematocrit 37.3, and platelet 349. PT 12.0, INR 1.05. Chemistry; sodium 135, potassium 3.6, chloride 102, CO2 26, BUN 14, creatinine 0.6, blood sugar is 158, alk phos 128, LDH 308. First troponin 0.5. ASSESSMENT: 1. Chest pain with coronary ischemia. 2. The patient has triple vessel disease. 3. Unstable angina. 4. Status post open heart surgery. 5. Hypertension. 6. Hyperlipidemia. 7. Benign prostatic hyperplasia. 8. Vqb-oemkujl-ejimcfhtm diabetes mellitus. PLAN: We will follow up his troponin if it is trending down. He will be discharged. Dr. Simental spoke to the thoracic surgeon and the patient is scheduled to see them on 11/14. We will give him prescription isosorbide 60 mg daily and if his troponin is trending down, he will be discharged later on today. Beto Dick MD
--- NOTE | 2018-11-02 16:22 | PN ---
DATE: 11/02/2018 REASON FOR CONSULTATION AND FOLLOWUP: Chest pain, unstable angina, followup note after the initial consultation. SUBJECTIVE: Repeat troponin came back 0.55 and third was 0.66, but the patient is chest pain free. Total CPK 42, 66, 53, so no significant rise in CPK ____ because of demand and supply ischemia. PLAN: Increase Imdur to 50 mg daily and give the prescription for Ranexa 500 p.o. b.i.d. Since Ranexa is a non-formulary, we will start as outpatient and follow up with ____ with Dr. Felix Lomeli for evaluation for redo surgery. Also contacted Dr. Lomeli's office to get more information regarding this patient's followup. Tammy Simental MD
--- NOTE | 2018-11-02 16:30 | PN ---
DATE: 11/02/2018 PROGRESS NOTE FOLLOWUP SUBJECTIVE: Repeat troponin as follows; first one is 0.01, repeat is 0.55, and third one is 0.65, but the patient is asymptomatic, feels okay. MEDICATIONS: Imdur increased to 60 mg daily and prescription for Ranexa given 500 p.o. b.i.d. to be started as an outpatient, because Ranexa is non-formulary here. PLAN: We also contacted Dr. Felix Lomeli at [facility] for the patient to followup. He is scheduled to be seen by Dr. Lomeli for evaluation for redo surgery next week. Interim continue current medication including aspirin, Brilinta, as well as Ranexa 500 p.o. b.i.d. The patient is currently asymptomatic. Discussed with Dr. Dick, possibly going to be discharged today. Tammy Simental MD
--- NOTE | 2018-11-02 18:22 | CARD ---
APPROVED REPORT Date of service: 11/01/2018 EKG Measurement Heart [id number] <Conclusion> Sinus rhythm with premature ventricular complexes Otherwise normal ECG
== END 2018-11-02 15:13 | disposition home or self-care (01) ==
LOC: ED 20:02 → ERH 11-02 01:57 → 2RSO 11-02 03:35
PROVIDERS: ADMIT Internal Medicine; ATTEND Internal Medicine
DX: I25.110 Atherosclerotic heart disease of native coronary artery with unstable angina pectoris (principal); I11.0 Hypertensive heart disease with heart failure; I50.9 Heart failure, unspecified; N40.0 Benign prostatic hyperplasia without lower urinary tract symptoms; J44.9 Chronic obstructive pulmonary disease, unspecified; E78.5 Hyperlipidemia, unspecified; G47.30 Sleep apnea, unspecified; E11.9 Type 2 diabetes mellitus without complications; Z87.891 Personal history of nicotine dependence; Z95.5 Presence of coronary angioplasty implant and graft
CPT/HCPCS: 36415; 71045; 80053; 82550; 82948; 83615; 84484; 85027; 85610; 85730; 93005; 99285; G0378

== ENCOUNTER 2018-11-17 02:48 | Observation (INO) | payer MEDICARE, MEDICAID ==
[2018-11-17 02:53] VITALS: BMI 40.3
--- NOTE | 2018-11-17 03:53 | ED PDOC ---
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 Patient reports pain is non-radiating. Patient explains he was sleeping and suddenly awoke with pain. States he has been here in the ER twice in the past for similar complaint and has been admitted both times. Currently now, patient states he feels little chest pain, however initially before and upon arriving to the ER, patient's pain was severe. Patient denies any other complaints at this time. PMD: Dr. Gustafson [place] Coil Winder: Dr. Zamudio Past Medical History - Provider Review Nursing Documentation Reviewed: Yes - Infectious Disease Hx of Infectious Diseases: None - Tetanus Immunization Tetanus Immunization: Unknown - Cardiac Hx Cardiac Disorders: Yes Hx Angina: Yes Hx Cardiac Arrhythmia: Yes Hx Congestive Heart Failure: Yes - Pulmonary Hx Respiratory Disorders: Yes Hx Asthma: Yes Hx Chronic Obstructive Pulmonary Disease (COPD): Yes Hx Sleep Apnea: Yes (does not use his cpap) Other/Comment: chronic smoker cough - Neurological Hx Neurological Disorder: Yes Hx Dizziness: Yes - HEENT Hx HEENT Disorder: Yes Hx Cataracts: Yes (Bilateral Cataract surgery) Hx Glaucoma: Yes Other/Comment: LASER SURGERY FOR GLAUCOMA. SURGERY FOR TRAUMA TO LEFT EAR, work related, was working and metal flew into eardrum, hearing impaired left ear - Renal Hx Renal Disorder: No - Endocrine/Metabolic Hx Endocrine Disorders: Yes Hx Diabetes Mellitus Type 1: Yes Hx Diabetes Mellitus Type 2: Yes - Hematological/Oncological Hx Blood Disorders: No - Integumentary Hx Dermatological Disorder: Yes Other/Comment: dry skin multiple skin discolorations ble, DRY LESIONS - Musculoskeletal/Rheumatological Hx Falls: No - Gastrointestinal Hx Gastrointestinal Disorders: Yes Other/Comment: HX: 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 - Genitourinary/Gynecological Hx Genitourinary Disorders: Yes Hx Prostate Problems: Yes (BPH) Other/Comment: Takes Flomax - Psychiatric Hx Psychophysiologic Disorder: No Hx Substance Use: No - Surgical History Hx Cardiac Catheterization: Yes - Anesthesia Hx Anesthesia: Yes Hx Anesthesia Reactions: No Hx Malignant Hyperthermia: No - Suicidal Assessment Feels Threatened In Home Enviroment: No Family/Social History - Physician Review Nursing Documentation Reviewed: Yes Family/Social History: No Known Family HX Smoking Status: Heavy Smoker > 10 Cigarettes Daily Hx Alcohol Use: No Hx Substance Use: No Allergies/Home Meds Allergies/Adverse Reactions: Allergies No Known Allergies Allergy (Verified 10/22/18 02:31) Home Medications: Home Meds Medication Instructions Recorded Confirmed Aspirin [Ecotrin] 81 mg PO DAILY 01/05/18 11/17/18 Clopidogrel [Plavix] 1 tab PO DAILY 01/05/18 11/17/18 Metoprolol Succinate 25 mg PO DAILY 01/05/18 11/17/18 Albuterol 0.042% [Albuterol 0.042% 3 ml IH TID 02/28/18 11/17/18 Inhal Diana (1.25mg/3ml) UD] Ammonium Lactate 12% [Lac-Hydrin 12 % TP BID 02/28/18 11/17/18 12% Cream (140 g)] Glimepiride [amaRYL] 4 mg PO DAILY 02/28/18 11/17/18 Ketoconazole 2% Cr [Nizoral] 15 applic TOP BID 02/28/18 11/17/18 Liraglutide [Victoza 3-Dominick] 6 mg SC DAILY 02/28/18 11/17/18 Furosemide [Lasix] 40 mg PO DAILY 10/25/18 11/17/18 Atorvastatin [Lipitor] 10 mg PO DIN 11/02/18 11/17/18 Dutasteride [Avodart] 0.5 mg PO DAILY 11/02/18 11/17/18 Enalapril Maleate [Vasotec] 1 tab PO DAILY 11/02/18 11/17/18 Esomeprazole Magnesium [Nexium] 40 mg PO DAILY 11/02/18 11/17/18 Isosorbide Mononitrate [Isosorbide 60 mg PO DAILY 11/02/18 11/17/18 Mononitrate ER] Lactulose [Enulose] 10 gm PO DAILY PRN 11/02/18 11/17/18 Potassium Chloride [Klor-Con M10] 10 meq PO DAILY 11/02/18 11/17/18 Promethazine HCl/Codeine 5 ml PO PRN PRN 11/02/18 11/17/18 [Prometh-Codein 6.25-10 mg/5 ml] Ticagrelor [Brilinta] 90 mg PO DAILY 11/02/18 11/17/18 Umeclidinium [place] [Incruse 62.5 mcg IH DAILY 11/02/18 11/17/18 Ellipta] Vit B Complx/Folic AC/C/Biotin 1 each PO DAILY 11/02/18 11/17/18 [Folika-T Tablet] Review of Systems - Physician Review All systems were reviewed & negative as marked: Yes - Review of Systems Constitutional: absent: Fevers Respiratory: Cough Cardiovascular: Chest Pain Physical Exam - Physical Exam Narrative Physical Exam (Text): Gen: VS reviewed, alert, well developed, well nourished, nontoxic, mild distress. ENT: normal pharynx. Eye: EOMI, PERRL. Neck: no JVD, supple, no adenopathy. CV: regular rate, regular rhythm, no rubs, no murmur, no gallops, S1, S2, pulses equal and strong. Pulm: no distress, clear to auscultation, no wheeze, no rhonchi, breath sounds equal, no rales. Abd: soft, nontender, no guarding, no rebound, no rigidity, normal bowel sounds. Ext: pitting edema to lower extremities bilaterally. Skin: good color, no rash, no cyanosis. Psych: responds appropriately to questions, normal affect. Neuro: oriented x 3, CN2-12 intact grossly, motor intact, sensation intact. Vital Signs Temp Pulse Resp BP Pulse Ox 11/17/18 02:57 98.4 F 104 H 20 158/69 H 94 L Medical Decision Making ED Course and Treatment: 11/17/18 03:54 Impression: 67 year old male with chest pain. Plan: -- EKG -- Chest X-ray -- Labs -- Blood Culture -- Venous Blood Gas -- Reassess and disposition Prior Visits: Notes and results from previous visits were reviewed. Patient was last seen here in the emergency department on 11/01/2018 for evaluation of intermittent chest discomfort. Patient was admitted. Progress Notes: 11/17/18 06:[address] hull, observation. patient to be admitted for chest pain, rule out acs.consult to dr. lopez for cardiology. - RAD Interpretation Narrative RAD Interpretations (Text): 11/17/18 05:41 cxr my read: no focal infiltrate, no ptx, cardiomegaly Radiology Orders: 11/17/18 03:45 CHEST PORTABLE [RAD] Stat - EKG Interpretation EKG Interpretation (Text): 11/17/18 0259 sinus tach at 101 bpm, nml qrs, nml axis, nonspecific lateral t wave abn Interpreted by ED Physician: Yes - Scribe Statement The provider has reviewed the documentation as recorded by the Rema Mendoza Provider Scribe Attestation: All medical record entries made by the Rema were at my direction and personally dictated by me. I have reviewed the chart and agree that the record accurately reflects my personal performance of the history, physical exam, medical decision making, and the department course for this patient. I have also personally directed, reviewed, and agree with the discharge instructions and disposition. Disposition/Present on Arrival - Present on Arrival Any Indicators Present on Arrival: No History of DVT/PE: No History of Uncontrolled Diabetes: Yes Urinary Catheter: No History of Decub. Ulcer: No History Surgical Site Infection Following: None - Disposition Have Diagnosis and Disposition been Completed?: Yes Diagnosis: Angina at rest Disposition: HOSPITALIZED Disposition Time: 06:38 Patient Plan: Observation Patient Problems: Current Active Problems Problem Status Onset Angina at rest Acute Condition: STABLE
[2018-11-17 04:08] LABS: INR 1.04; PARTIAL THROMBOPLASTIN TIME 29.7 Seconds (25.1-36.5); PROTHROMBIN TIME 11.9 SECONDS (9.4-12.5)
[2018-11-17 04:11] LABS: EOS % 0.1 % (1.5-5.0); GRAN # 8.03 (1.4-6.5); GRAN % 84.4 % (50.0-68.0); HEMOGLOBIN 12.5 g/dL (14.0-18.0); LYMPH # 0.9 (1.2-3.4); LYMPH % 9.3 % (22.0-35.0); MEAN CORPUSCULAR HEMOGLOBIN 29.8 pg (25.0-35.0); MEAN CORPUSCULAR HGB CONC 33.1 g/dl (31.0-37.0); MEAN PLATELET VOLUME 9.9 fl (7.0-11.0); MONO # 0.6 (0.1-0.6); MONO % 6.2 % (1.0-6.0); RBC 4.2 10^6/uL (3.5-6.1); RED CELL DISTRIBUTION WIDTH 13.5 % (11.5-14.5); WHITE BLOOD COUNT 9.5 10^3/uL (4.5-11.0)
[2018-11-17 05:08] LABS: VENOUS BLOOD GAS BASE EXCESS 4.3 mmol/L (0.0-2.0); VENOUS BLOOD GAS PO2 188 mm/Hg (30-55); VENOUS BLOOD PH 7.41 (7.32-7.43)
[2018-11-17 05:24] LABS: B-TYPE NATRIURETIC PEPTIDE 976 pg/mL (0-450); TROPONIN I < 0.01 ng/mL
[2018-11-17 05:32] LABS: ALB/GLOB RATIO 1.2 (1.1-1.8); ALBUMIN 4.5 g/dL (3.0-4.8); ALT/SGPT 24 U/L (7-56); AST/SGOT 33 U/L (17-59); BLOOD UREA NITROGEN 11 mg/dL (7-21); CALCIUM 9.7 mg/dL (8.4-10.5); GFR NON-AFRICAN AMERICAN > 60
[2018-11-17 08:07] LABS: VENOUS BLOOD GAS BASE EXCESS 6.4 mmol/L (0.0-2.0); VENOUS BLOOD GAS PO2 117 mm/Hg (30-55); VENOUS BLOOD PH 7.43 (7.32-7.43)
--- NOTE | 2018-11-17 09:29 | RAD ---
Date of service: 11/17/2018 HISTORY: chest pain COMPARISON: 11/01/2018 FINDINGS: LUNGS: No active pulmonary disease. PLEURA: No significant pleural effusion identified, no pneumothorax apparent. CARDIOVASCULAR: No aortic atherosclerotic calcification present. Mild cardiomegaly no pulmonary vascular congestion. OSSEOUS STRUCTURES: Sternal wires VISUALIZED UPPER ABDOMEN: Normal. OTHER FINDINGS: None. IMPRESSION: No active disease.
[2018-11-17] MEDS: Metoprolol Succinate 25 mg XL Tab PO SCH (12:32)
[2018-11-17] MEDS: Non Formulary Medication (Dutasteride [Avodart] 0.5 MG) PO SCH (12:34)
[2018-11-17] MEDS: Levalbuterol 1.25 MG/3 ML Inhal Soln UD IH SCH (13:46)
--- NOTE | 2018-11-17 16:11 | HP ---
DATE OF EXAM: 11/17/2018 HISTORY OF PRESENT ILLNESS: Patient is 67 years old, he stayed around 1:30, he woke up with chest pain, pain was pressure like and severe. He thought he changed his position, he sat down for sometime, but pain was not going away, so he called ambulance and he was brought to emergency room. After he was given the aspirin, patient said that pain started to subside. Denies any fever or chills. No history of nausea or vomiting. Patient has similar episode for the last 2 admission. He had cardiac cath done on 10/23/[address] Simental showed, he has presumably left main occluded, left main could not be cannulated using multiple catheters and guidewire. Patient BOLANOS to LAD, moderately decrease LV function with ejection fraction of 30%. PAST MEDICAL HISTORY: Significant for; 1. Hyperlipidemia. 2. Morbid obesity. 3. Coronary artery disease status post open heart surgery. 4. Left carotid endarterectomy. 5. Hypertension. 6. Non-insulin dependent diabetes. ALLERGIES: NOT ALLERGIC TO ANY MEDICATION. MEDICATION: At home, he is on; 1. Amaryl 4 mg daily. 2. Plavix 75 mg daily. 3. Incruse Ellipta. 4. Brilinta 90 mg daily. 5. Potassium 10 mg daily. 6. Metoprolol 25 mg daily. 7. Victoza. 8. Lasix 40 mg daily. 9. Nexium 40 mg daily. 10. Enalapril. 11. Avodart. 12. Atorvastatin. 13. Aspirin daily. SOCIAL HISTORY: Lives alone, he is to be very heavy smoker, quit 10 years ago. PHYSICAL EXAMINATION: GENERAL: On examination today, he is sitting in chair, seems to be comfortable. He is very sleepy, he states he did not have a dora sleep last night. VITAL SIGNS: He is afebrile, pulse 54, respirations 20, blood pressure 148/71. LUNGS: Bilateral fair airflow. No rhonchi or crackle. HEART: S1 and S2 audible. ABDOMEN: Soft, obese, nontender. No rebound, no guarding. NEUROLOGIC: Patient is awake, alert and oriented, communicative. LABORATORY EXAM: WBC 9.5, hemoglobin 12.5, hematocrit 57.8, and platelets 362. PT 11.9, INR 1.04. Chemistry, sodium 140, potassium 4.6, chloride 101, CO2 27, BUN 11, creatinine 0.6, blood sugar . LFTs are within normal limits. BNP . ASSESSMENT: 1. Chest pain secondary to coronary ischemia. 2. Open heart surgery in remote past. 3. Status post cardiac cath and had stent placed couple of weeks ago. 4. Chronic obstructive pulmonary disease. 5. Non-insulin dependent diabetes. 6. Hypertension. 7. Morbid obesity. PLAN: So plan is, we will resume his medication. He is on glimepiride, he is on Brilinta, aspirin 81 mg daily, he is isosorbide, he is on Lasix, will continue on statin, metoprolol and continue lisinopril. We will followup patient in a.m. Beto Dick MD
[2018-11-17] MEDS: Insulin Lispro (humaLOG) MEDIUM Coverage SC SCH ×2 (17:22→22:02)
[2018-11-17] MEDS ORDERED: Pneumococcal 23-Valent Vaccine IM ONE (18:12)
[2018-11-17] MEDS ORDERED: Influenza Vaccine 60 mcg/0.5 mL SYR (4YR UP) IM ONE (18:12)
--- NOTE | 2018-11-17 20:16 | CARD ---
APPROVED REPORT Date of service: 11/17/2018 EKG Measurement Heart [id number] <Conclusion> Sinus tachycardia Cannot rule out Inferior infarct, age undetermined Abnormal ECG
--- NOTE | 2018-11-17 20:53 | CON ---
DATE: 11/17/2018 LOCATION: Patient in room 270, bed 2. REASON FOR CONSULTATION: Chest pain, history of coronary artery disease, history of coronary bypass surgery, history of PTCA, diabetes mellitus, and obesity. HISTORY OF PRESENT ILLNESS: A 67-year-old male admitted with history that he woke from sleep with tightness in the chest with radiation to the left arm which lasted half hour. Patient with known case of coronary artery disease, had two vessels CABG at [facility] in 1998 with BOLANOS to LAD and SVG to RCA. About 2 months ago, patient had intervention for coronary artery disease at [facility]. Patient also had a history of carotid endarterectomy recently. The chest pain lasted about half hour. Denies any nausea, vomiting, or diaphoresis. RECENT CARDIAC WORKUP: As follows; 1. 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 2. Patient had carotid angiography done on 08/14/2018 that showed patent stent in the right common carotid artery going to internal carotid artery, but left internal carotid artery had 90 to 99% stenosis noted. 3. Patient is status post left carotid endarterectomy done on 08/08/2018. 4. Patient had echocardiogram done at [facility] on 07/27/2018 that showed ejection fraction of 42%, mild mitral regurgitation, mild tricuspid regurgitation, trace to mild aortic regurgitation. 5. Patient had multiple times blood cultures done 08/03/2017 to 08/12/2017, which were negative. They were done due to sepsis. 6. Patient had cardiac catheterization on 08/13/2018 at [facility] with stenting of the circumflex was done at that time. Cardiac catheterization at that time revealed normal left main, left anterior descending artery was occluded. Circumflex had a mid 80% stenosis which was stented. Right coronary artery was occluded. Saphenous vein graft of right coronary artery was occluded as well as obtuse marginal 2 graft is occluded. Patient BOLANOS to LAD was patent. Patient had repeat cardiac catheterization on 10/23/2018, at [facility] which showed only patent BOLANOS to LAD. Rest of the graft as well as [place] arteries were occluded and the patient was sent for redo CABG evaluation at [facility] where his symptoms were reviewed. Patient was evaluated and they suggested to do a CT angio for the cardia which has been not done yet. 7. Patient had echocardiography done on 10/23/2018 at [facility] that revealed mild concentric LVH, systolic function moderately impaired with 30 to 35% LV ejection fraction, mild aortic regurgitation, [id number] mitral regurgitation, [id number] tricuspid regurgitation, RV systolic pressure 34 mm/Hg, aortic root mildly dilated, ascending aorta is mildly dilated. PAST MEDICAL HISTORY: As mentioned before, patient with known CABG, has stents done. Patient has history of stent in the right carotid artery and endarterectomy on the left carotid artery. ALLERGIES: PATIENT DENIES ANY ALLERGY. PERSONAL HISTORY: Denies smoking. Denies drinking. MEDICATIONS AT HOME: Included Brilinta 90 mg p.o. daily at home but it is suppose to be 90 mg twice a day, metoprolol succinate 25 mg daily, isosorbide mononitrate 60 mg daily, glimepiride 4 mg daily, enalapril one tablet daily, Plavix 75 mg daily, Lipitor 10 mg daily, and Ecotrin 81 mg daily. REVIEW OF SYSTEMS: All the systems were reviewed, positive mentioned in the history, otherwise negative. PHYSICAL EXAMINATION: VITAL SIGNS: Blood pressure 139/56, respirations 16, pulse 80, and temperature 98.6. HEENT: Head is normocephalic. Eyes, pupils normal. Conjunctiva is normal. Nose and throat normal. NECK: JVP low. Carotids are equal. THORAX: AP diameter normal. LUNGS: Clear. CARDIOVASCULAR: S1 and S2. ABDOMEN: Soft and nontender. No organomegaly. Abdomen protuberant. EXTREMITIES: No clubbing. No cyanosis. LABORATORY DATA: Shows WBC 9.5, hemoglobin 12.5, hematocrit 37.8, and platelets 362. Sodium 140. potassium 4.6, BUN 11, creatinine 0.6. Random glucose 208. Random glucose 240. Calcium, total bilirubin, AST, and ALT are normal. NT-proBNP natriuretic peptide 976 which is not significant. Troponin less than 0.01. Chest x-ray, no significant abnormality. EKG showed regular sinus rhythm. DIAGNOSES: 1. Chest pain, rule out myocardial infarction. 2. Coronary artery disease status post coronary artery bypass graft status post stent insertion, status post endarterectomy left carotid artery and stent insertion in the right internal carotid and left internal carotid artery. 3. Ishemic cardiomyopathy. 4. Diabetes mellitus. 5. Obesity. 6. Hyperlipidemia. PLAN: Repeat Troponin and we will continue glimepiride 4 mg daily, Brilinta is ordered 90 mg daily we will change it to 90 mg b.i.d., aspirin 81 mg daily, metformin 1000 mg b.i.d., isosorbide 90 mg daily, Furosemide 40 mg daily, atorvastatin 10 mg daily, metoprolol succinate 25 mg daily, and lisinopril 10 mg daily. If the patient's serial troponins are negative, patient will go home and he is waiting for CT angio of the heart to decide for a redo bypass surgery at [facility] and all the instructions were given to the patient to follow up at [facility]. We will follow with you. Tammy Tamayo MD
[2018-11-18] MEDS: Levalbuterol 1.25 MG/3 ML Inhal Soln UD IH SCH ×5 (02:55→19:46)
--- NOTE | 2018-11-18 09:43 | CP.PCM.PN ---
Subjective - Date & Time of Evaluation Date of Evaluation: 11/18/18 Time of Evaluation: 06:30 - Subjective Subjective: Awake, no distress, denies chest pain Reason for consultation and follow up:Cardiac evaluation of chest pain, history of hypertension, hyperlipidemia, diabetes, COPD, aortic aneurysm, CAD x 6 cardiac stents, and CABG, Seen and examined by me and Dr. Tamayo Objective - Vital Signs/Intake and Output Vital Signs (last 24 hours): Temp Pulse Resp BP Pulse Ox 97.7 F 72 20 135/67 97 11/18/18 06:00 11/18/18 06:00 11/18/18 06:00 11/18/18 06:00 11/18/18 06:00 Intake and Output: 11/18/18 11/18/18 06:59 18:59 Intake Total 240 Balance 240 - Medications Medications: Current Medications Aspirin (Ecotrin) 81 mg PO DAILY [facility] Last Admin: 11/17/18 12:33 Dose: 81 mg Atorvastatin Calcium (Lipitor) 10 mg PO DIN [facility] Last Admin: 11/17/18 17:22 Dose: 10 mg Furosemide (Lasix) 40 mg PO DAILY [facility] Last Admin: 11/17/18 12:33 Dose: 40 mg Glimepiride (Amaryl) 4 mg PO DAILY [facility] Last Admin: 11/17/18 12:33 Dose: 4 mg Insulin Human Lispro (Humalog Med) 0 units SC [facility]; Protocol Last Admin: 11/17/18 22:02 Dose: Not Given Isosorbide Mononitrate (Imdur Er) 90 mg PO DAILY [facility] Levalbuterol HCl (Xopenex) 1.25 mg IH [id number] [facility] Last Admin: 11/18/18 08:06 Dose: 1.25 mg Lisinopril (Zestril) 10 mg PO DAILY [facility] Last Admin: 11/17/18 12:33 Dose: 10 mg Metformin HCl (Glucophage) 1,000 mg PO BID [facility] Last Admin: 11/17/18 17:22 Dose: 1,000 mg Metoprolol Succinate (Toprol Xl) 25 mg PO DAILY [facility] Last Admin: 11/17/18 12:32 Dose: 25 mg Non-Formulary Medication (Dutasteride [Avodart]) 0.5 mg PO DAILY [facility] Last Admin: 11/17/18 12:34 Dose: Not Given Tamsulosin HCl (Flomax) 0.4 mg PO DAILY [facility] Last Admin: 11/17/18 12:51 Dose: 0.4 mg Ticagrelor (Brilinta) 90 mg PO BID [facility] Last Admin: 11/17/18 17:22 Dose: 90 mg - Labs Labs: 11/17/18 03:05 11/17/18 03:05 PT 11.9 SECONDS (9.4-12.5) 11/17/18 03:05 INR 1.04 11/17/18 03:05 APTT 29.7 Seconds (25.1-36.5) 11/17/18 03:05 - Constitutional Appears: Non-toxic, No Acute Distress - Head Exam Head Exam: NORMAL INSPECTION, NORMOCEPHALIC - Eye Exam Eye Exam: Normal appearance Pupil Exam: NORMAL ACCOMODATION - ENT Exam ENT Exam: Mucous Membranes Moist, Normal Exam - Cardiovascular Exam Cardiovascular Exam: +S1, +S2 Additional comments: Second degree heart block Mobitz 1 - GI/Abdominal Exam GI & Abdominal Exam: Soft, Normal Bowel Sounds - Extremities Exam Extremities Exam: Full ROM, Normal Capillary Refill - Neurological Exam Neurological Exam: Alert, Awake, Oriented x3 - Psychiatric Exam Psychiatric exam: Normal Affect, Normal Mood - Skin Skin Exam: Dry, Normal Color, Warm Assessment and Plan - Assessment and Plan (Free Text) Assessment: A 67 year old male who came in to the ER due to chest pain. He woke up with chest tightness with radiation to left arm lasting for an hour. History of hypertension, hyperlipidemia, diabetes, COPD, aortic aneurysm, history of right carotid endarterectomy, coronary artery disease post CABG x 2 vessels at [facility] in 1998,BOLANOS to LAD, SVG to RCA. On 08/13/2018 , had cardiac cath and PTCA at [facility]. PTCA of Circumflex, done, normal left main, LAD was occluded, Cx has 80 % stenosis, PTCA of Circumflex, RCA occluded, SVG to RCA occluded, OM2 graft occluded, patent BOLANOS to LAD. Recent history of left carotid endarterectomy 08/08/18. repeat cardiac cath at [facility] showed only patent BOLANOS to LAD and the rest of the grafts and arteries were occluded. He was referred to [facility] for redo CABG. He was seen and evaluated and supposed to have CT angiogram but not done yet. Troponin initial was 0.01 however the next two troponins were positive, 0.83/0.57. Unstable angina. Denies chest pain now. Plan: Denies chest pain Repeat troponin positive Heart rate and blood pressure controlled On ASA 81 mg daily, Lipitor 10 mg daily,Lasix 40 mg daily Imdur 90 mg daily,Lisinopril 10 mg daily,Toprol 25 mg daily,Flomax 0.4 mg daily, Brilinta 90 mg BID Continue current treatment Continue current medications We maybe refer back to [facility] Will follow up Plan and treatment discussed with Dr. Tamayo
[2018-11-18] MEDS: Metoprolol Succinate 25 mg XL Tab PO SCH (11:16)
[2018-11-18] MEDS: Insulin Lispro (humaLOG) MEDIUM Coverage SC SCH ×4 (11:17→22:00)
[2018-11-18] MEDS: Non Formulary Medication (Dutasteride [Avodart] 0.5 MG) PO SCH (11:18)
--- NOTE | 2018-11-18 12:54 | PN ---
DATE: 11/18/2018 SUBJECTIVE: The patient is 67 years old, seen and examined. He states he feel well. No chest pain, no shortness of breath. No nausea or vomiting. No diarrhea, eating and tolerating, resting comfortably. PHYSICAL EXAMINATION: VITAL SIGNS: He is afebrile, pulse 72, respirations 20, and blood pressure 135/67. LUNGS: Bilateral fair airflow. No rhonchi or crackles. HEART: S1 and S2 audible. ABDOMEN: Soft, nontender. No rebound, no guarding. NEUROLOGIC: The patient is awake, alert, oriented, able to communicate, ambulatory. LABORATORY DATA: His blood sugar is 218. His troponin was 0.83, followup is 0.57. ASSESSMENT: 1. Non-ST elevation myocardial infarction. 2. History of coronary artery disease, status post cardiac catheterization and was recommended that he need open-heart surgery. The patient needs to be scheduled with [facility] for followup to be evaluated with thoracic surgeon. 3. Morbid obesity. 4. Noninsulin-dependent diabetes. 5. Hypertension. 6. Hyperlipidemia. 7. Benign prostatic hypertrophy. PLAN: Currently, the patient is on isosorbide 90 mg daily. He is getting Lasix. He is on glimepiride. Continue nebulizer treatment. We will order for troponin and see if it is trending down and the patient is asymptomatic, possible discharge in a.m. and he will follow up with thoracic surgeon. Also last night, the patient was noticed to have intermittent second-degree block with Wenckebach phenomena and the patient need to be observed for further 24 hours and if he remains stable, possible discharge. Beto Dick MD
--- NOTE | 2018-11-18 19:00 | PN ---
DATE: 11/18/2018 LOCATION: The patient is in room 270, bed 2. Detailed progress note has been already written by Monse Jimenez. This is additional note. SUBJECTIVE: The patient was admitted with chest pain. The patient is known case of coronary artery disease, has a history of bypass surgery in the past and PTCA, diabetes mellitus, obesity, was admitted with chest pain, tightness for more than half hour in the left arm, radiation. The patient's first troponin was less than 0.01, but second one was 0.83 and third one was 0.57. This is suggestive of non-ST elevation myocardial infraction, so the patient during the night, on the monitor, midnight while sleeping had Mobitz type 2 only. He missed 1 beat each time, it happened 2 times and he only missed 1 beat, so the patient is on beta will and also he is obese and he may have sleep apnea also as this happened in middle on the night, it may be related to sleep apnea. PLAN: The patient has been already been following at the [facility] for possible redo bypass surgery and they have been evaluating him, and he wants his discharge from the hospital. He is going to contact them again for followup. In the meantime, he is on glimepiride 4 mg daily, Brilinta 90 mg b.i.d., aspirin 81 daily, metformin 1000 mg b.i.d., isosorbide 90 daily, furosemide 40 daily, atorvastatin 10 daily, metoprolol 25 mg daily, lisinopril 10 mg daily. I was going to increase the metoprolol, but since he has bradycardia in the midnight with type 2 block missing 1 beat, so I will continue 25 metoprolol daily, and we will monitor him today. Presently, he is asymptomatic from cardiac point. Tammy Tamayo MD
[2018-11-19] MEDS: Levalbuterol 1.25 MG/3 ML Inhal Soln UD IH SCH ×2 (01:09→07:59)
[2018-11-19 01:39] VITALS: RESP 20
[2018-11-19 01:40] VITALS: TEMP 97.4
[2018-11-19 06:10] VITALS: O2SAT 95
[2018-11-19] MEDS: Insulin Lispro (humaLOG) MEDIUM Coverage SC SCH (07:56)
--- NOTE | 2018-11-19 08:59 | CP.PCM.PN ---
Subjective - Date & Time of Evaluation Date of Evaluation: 11/19/18 Time of Evaluation: 06:30 - Subjective Subjective: No distress, denies chest pain,awake Reason for consultation and follow up:Cardiac evaluation of chest pain, history of hypertension, hyperlipidemia, diabetes, COPD, aortic aneurysm, CAD x 6 cardiac stents, and CABG, Seen and examined by me and Dr. Tamayo Objective - Vital Signs/Intake and Output Vital Signs (last 24 hours): Temp Pulse Resp BP Pulse Ox 97.4 F L 76 20 125/64 95 11/19/18 06:00 11/19/18 06:00 11/19/18 06:00 11/19/18 06:00 11/19/18 06:00 Intake and Output: 11/19/18 11/19/18 06:59 18:59 Intake Total 300 Balance 300 - Medications Medications: Current Medications Aspirin (Ecotrin) 81 mg PO DAILY [facility] Last Admin: 11/18/18 11:16 Dose: 81 mg Atorvastatin Calcium (Lipitor) 10 mg PO DIN [facility] Last Admin: 11/18/18 18:30 Dose: 10 mg Furosemide (Lasix) 40 mg PO DAILY [facility] Last Admin: 11/18/18 11:17 Dose: 40 mg Glimepiride (Amaryl) 4 mg PO DAILY [facility] Last Admin: 11/18/18 11:16 Dose: 4 mg Insulin Human Lispro (Humalog Med) 0 units SC [facility]; Protocol Last Admin: 11/19/18 07:56 Dose: Not Given Isosorbide Mononitrate (Imdur Er) 90 mg PO DAILY [facility] Last Admin: 11/18/18 11:16 Dose: 90 mg Levalbuterol HCl (Xopenex) 1.25 mg IH [id number] [facility] Last Admin: 11/19/18 07:59 Dose: 1.25 mg Lisinopril (Zestril) 10 mg PO DAILY [facility] Last Admin: 11/18/18 11:17 Dose: 10 mg Metformin HCl (Glucophage) 1,000 mg PO BID [facility] Last Admin: 11/18/18 18:30 Dose: 1,000 mg Metoprolol Succinate (Toprol Xl) 25 mg PO DAILY [facility] Last Admin: 11/18/18 11:16 Dose: 25 mg Non-Formulary Medication (Dutasteride [Avodart]) 0.5 mg PO DAILY [facility] Last Admin: 11/18/18 11:18 Dose: Not Given Tamsulosin HCl (Flomax) 0.4 mg PO DAILY [facility] Last Admin: 11/18/18 12:48 Dose: 0.4 mg Ticagrelor (Brilinta) 90 mg PO BID [facility] Last Admin: 11/18/18 18:30 Dose: 90 mg - Labs Labs: 11/17/18 03:05 11/17/18 03:05 PT 11.9 SECONDS (9.4-12.5) 11/17/18 03:05 INR 1.04 11/17/18 03:05 APTT 29.7 Seconds (25.1-36.5) 11/17/18 03:05 - Constitutional Appears: Non-toxic, No Acute Distress - Head Exam Head Exam: NORMAL INSPECTION, NORMOCEPHALIC - Eye Exam Eye Exam: Normal appearance Pupil Exam: NORMAL ACCOMODATION - ENT Exam ENT Exam: Mucous Membranes Moist, Normal Exam - Respiratory Exam Respiratory Exam: Decreased Breath Sounds, NORMAL BREATHING PATTERN - Cardiovascular Exam Cardiovascular Exam: +S1, +S2 - GI/Abdominal Exam GI & Abdominal Exam: Soft, Normal Bowel Sounds - Extremities Exam Extremities Exam: Full ROM, Normal Capillary Refill - Neurological Exam Neurological Exam: Alert, Awake, Oriented x3 - Psychiatric Exam Psychiatric exam: Normal Affect, Normal Mood - Skin Skin Exam: Dry, Normal Color, Warm Assessment and Plan - Assessment and Plan (Free Text) Assessment: A 67 year old male who came in to the ER due to chest pain. He woke up with chest tightness with radiation to left arm lasting for an hour. History of hypertension, hyperlipidemia, diabetes, COPD, aortic aneurysm, history of right carotid endarterectomy, coronary artery disease post CABG x 2 vessels at [facility] in 1998,BOLANOS to LAD, SVG to RCA. On 08/13/2018 , had cardiac cath and PTCA at [facility]. PTCA of Circumflex, done, normal left main, LAD was occluded, Cx has 80 % stenosis, PTCA of Circumflex, RCA occluded, SVG to RCA occluded, OM2 graft occluded, patent BOLANOS to LAD. Recent history of left carotid endarterectomy 08/08/18. repeat cardiac cath at [facility] showed only patent BOLANOS to LAD and the rest of the grafts and arteries were occluded. He was referred to [facility] for redo CABG. He was seen and evaluated and supposed to have CT angiogram but not done yet. Troponin initial was 0.01 however the next two troponins were positive, 0.83/0.57. Unstable angina, Non STEMI. Denies chest pain, denies shortness of breath. Plan: No distress, denies chest pain Repeat troponin positive Heart rate controlled Blood pressure controlled On ASA 81 mg daily, Lipitor 10 mg daily,Lasix 40 mg daily Imdur 90 mg daily,Lisinopril 10 mg daily,Toprol 25 mg daily,Flomax 0.4 mg daily, Brilinta 90 mg BID Continue current treatment Continue current medications Glucose controlled We maybe refer back to [facility] Will follow up Plan and treatment discussed with Dr. Tamayo
[2018-11-19] MEDS: Non Formulary Medication (Dutasteride [Avodart] 0.5 MG) PO SCH (09:53)
[2018-11-19] MEDS: Metoprolol Succinate 25 mg XL Tab PO SCH (09:54)
[2018-11-19 09:57] VITALS: BP 124/58
[2018-11-19 10:50] VITALS: PULSE 76
--- NOTE | 2018-11-19 14:55 | PN ---
DATE: 11/19/2018 ADDITIONAL PROGRESS NOTE LOCATION: The patient is in room 217, bed 2. A detailed note has been already written by Monse iJmenez. The patient with known coronary artery disease, CABG, and stent insertion, admitted with chest pain, found to have troponin elevated, suggested to have [id number] myocardial infarction. The patient also with diabetes, obesity, hyperlipidemia. The patient is asymptomatic now and the patient has been referred to [facility] for possible second bypass surgery where he is being evaluated. He is waiting for a CT angio of the heart and he is going to go home today. He is asymptomatic and he is going to follow with the [facility] and he has been given all the instructions and medications. Tammy Tamayo MD
--- NOTE | 2018-11-19 15:32 | DS ---
HISTORY OF PRESENT ILLNESS: The patient initially came to the hospital and was found to have an elevated troponin, it was felt that the patient has a non-ST elevation IN. He does have a history of coronary artery disease. He was recommended open heart surgery, but has not had surgery at he is awaiting for thoracic surgeon evaluation at [facility]. He was seen by Cardiology. He was cleared to be discharge. He has no chest pain this morning. No shortness of breath. No headaches or dizziness. No nausea. No vomiting. PHYSICAL EXAMINATION: VITAL SIGNS: Temperature is 97.4, pulse 76, blood pressure 125/64, respirations 20 and O2 saturation 95%. GENERAL: The patient is lying in bed, flat, comfortable. HEENT: No oral lesion. Anicteric sclerae. Moist mucosa. NECK: No JVD, adenopathy, or thyromegaly. CARDIOVASCULAR: S1 and S2, regular. No murmurs, rubs, or gallops. LUNGS: Clear to auscultation bilaterally. No wheeze, rales, or rhonchi. ABDOMEN: Bowel sounds are positive, soft, nontender and nondistended. EXTREMITIES: No cyanosis, clubbing or edema. LABORATORY DATA: The patient's last troponin was 0.57 which is decreased. ASSESSMENT: 1. Non-ST elevation myocardiac infarction. 2. Coronary artery disease waiting for surgery. 3. Obesity with a BMI of 40. 4. Diabetes type II. 5. Hypertension. 6. Dyslipidemia. 7. Benign prostatic hypertrophy. PLAN: The patient is currently on Amaryl for diabetes. He is on Brilinta for his coronary artery disease. The patient is on aspirin daily. He is on Flomax for his BPH. The patient is on isosorbide. He is on Lasix daily. He is on Lipitor for dyslipidemia. The patient is on Lisinopril for hypertension. We will await further input from the mortgage processing manager regarding the patient's discharge. The patient is waiting to be discharge and we will followup with his primary doctor as well as his mortgage processing manager. CONDITION: Stable. ACTIVITIES: Increase as tolerated. He was advised to come back to the hospital if his symptoms worsen. Phillip Yevgeniy, MD [facility] # [id number]
== END 2018-11-19 12:54 | disposition home or self-care (01) ==
LOC: ED 02:48 → ERH 06:58 → 2RSO 09:39
PROVIDERS: ADMIT Internal Medicine; ATTEND Internal Medicine
DX: I21.4 Non-ST elevation (NSTEMI) myocardial infarction (principal); I25.110 Atherosclerotic heart disease of native coronary artery with unstable angina pectoris; E11.9 Type 2 diabetes mellitus without complications; E66.01 Morbid (severe) obesity due to excess calories; E78.5 Hyperlipidemia, unspecified; G47.30 Sleep apnea, unspecified; H91.92 Unspecified hearing loss, left ear; I11.0 Hypertensive heart disease with heart failure; I25.5 Ischemic cardiomyopathy; I44.1 Atrioventricular block, second degree; I50.9 Heart failure, unspecified; J44.9 Chronic obstructive pulmonary disease, unspecified; N40.0 Benign prostatic hyperplasia without lower urinary tract symptoms; Z68.41 Body mass index [BMI] 40.0-44.9, adult; Z79.02 Long term (current) use of antithrombotics/antiplatelets; Z79.82 Long term (current) use of aspirin; Z79.899 Other long term (current) drug therapy; F17.200 Nicotine dependence, unspecified, uncomplicated; Z95.5 Presence of coronary angioplasty implant and graft; Z95.1 Presence of aortocoronary bypass graft
CPT/HCPCS: 36415; 71045; 80053; 82803; 82948; 83880; 84484; 85025; 85610; 85730; 87040; 93005; 94640; 94760; 99285; G0378

== ENCOUNTER 2019-01-04 10:29 | Inpatient (IN) | payer MEDICARE, MEDICAID ==
[2019-01-04 10:29] VITALS: BMI 40.3
[2019-01-04] MEDS ORDERED: Sodium Chloride 0.9% 1,000 ML IV STA ×2 (10:48→11:36)
--- NOTE | 2019-01-04 11:03 | ED PDOC ---
Arrival/HPI - General Chief Complaint: Shortness Of Breath Historian: Patient - History of Present Illness Narrative History of Present Illness (Text): 01/04/19 11:02 68 year old male, whose past medical history includes hypertension, hyperlipidemia, diabetes, COPD, aortic aneurysm, CAD x 6 cardiac stents, and CABG, presents to the emergency department complaining dizziness and shortness of breath for the past few days. Patient states he hasn't been feeling well for a couple of days, but his symptoms worsened, which brought him into the emergency department for further evaluation. He notes associated, nausea, dry mouth, leg swelling, and generalized weakness, he has difficulty picking up his head. He denies fevers, chills, headache, chest pain, cough, abdominal pain, vomiting, diarrhea, back pain, neck pain, or any other complaint. PMD: Dr. Gustafson Transportation Coordinator: Dr. Zamudio Time/Duration: < week Symptom Onset: Gradual Symptom Course: Unchanged Activities at Onset: Light Context: Home Past Medical History - Provider Review Nursing Documentation Reviewed: Yes - Infectious Disease Hx of Infectious Diseases: None - Tetanus Immunization Tetanus Immunization: Unknown - Cardiac Hx Cardiac Disorders: Yes (cp, mi 1998, aaa, cad) Hx Angina: Yes Hx Cardiac Arrhythmia: Yes Hx Congestive Heart Failure: Yes Hx Hypertension: Yes Hx Peripheral Edema: Yes (ble +1) Other/Comment: cabg 1998 [facility] - Pulmonary Hx Respiratory Disorders: Yes Hx Asthma: Yes Hx Chronic Obstructive Pulmonary Disease (COPD): Yes Hx Sleep Apnea: Yes (does not use his cpap) Other/Comment: chronic smoker cough, quit 6 days ago using chantix, pt does not use his cpap c/o he has nose and throat problem - Neurological Hx Neurological Disorder: Yes HX Cerebrovascular Accident: Yes (2018) Hx Dizziness: Yes - HEENT Hx HEENT Disorder: Yes Hx Cataracts: Yes (Bilateral Cataract surgery) Hx Glaucoma: Yes Other/Comment: LASER SURGERY FOR GLAUCOMA. SURGERY FOR TRAUMA TO LEFT EAR, work related, was working and metal flew into eardrum, hearing impaired left ear - Renal Hx Renal Disorder: No - Endocrine/Metabolic Hx Endocrine Disorders: Yes Hx Diabetes Mellitus Type 1: Yes Hx Diabetes Mellitus Type 2: Yes - Hematological/Oncological Hx Blood Disorders: No - Integumentary Hx Dermatological Disorder: Yes Other/Comment: lle scaley dry skin dry scabs +1 edema, dry thick toenails both feet, rle +1 edema multiple skin discolorations, +1 pitting edema both feet - Musculoskeletal/Rheumatological Hx Falls: Yes (r leg gives out last fall 6 months ago) - Gastrointestinal Hx Gastrointestinal Disorders: Yes (upper gi bleed, obese) Hx Gastrointestinal Ulcer: Yes Other/Comment: HX: 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 - Genitourinary/Gynecological Hx Genitourinary Disorders: Yes Hx Prostate Problems: Yes (BPH) Other/Comment: Takes Flomax - Psychiatric Hx Psychophysiologic Disorder: No Hx Substance Use: No - Surgical History Hx Cardiac Catheterization: Yes Hx Coronary Stent: Yes Hx Musculoskeletal Surgery: Yes Other/Comment: pt fell about 6 yrs ago orif right knee to lower leg with viviane at [facility] - Anesthesia Hx Anesthesia: Yes Hx Anesthesia Reactions: No Hx Malignant Hyperthermia: No - Suicidal Assessment Feels Threatened In Home Enviroment: No Family/Social History - Physician Review Nursing Documentation Reviewed: Yes Family/Social History: No Known Family HX Smoking Status: Former Smoker Hx Alcohol Use: No Hx Substance Use: No Allergies/Home Meds Allergies/Adverse Reactions: Allergies No Known Allergies Allergy (Verified 10/22/18 02:31) Home Medications: Home Meds Medication Instructions Recorded Confirmed Aspirin [Ecotrin] 81 mg PO DAILY 01/05/18 11/19/18 Clopidogrel [Plavix] 1 tab PO DAILY 01/05/18 11/17/18 Metoprolol Succinate 25 mg PO DAILY 01/05/18 11/19/18 Albuterol 0.042% [Albuterol 0.042% 3 ml IH TID 02/28/18 11/17/18 Inhal Diana (1.25mg/3ml) UD] Ammonium Lactate 12% [Lac-Hydrin 12 % TP BID 02/28/18 11/17/18 12% Cream (140 g)] Glimepiride [amaRYL] 4 mg PO DAILY 02/28/18 11/19/18 Ketoconazole 2% Cr [Nizoral] 15 applic TOP BID 02/28/18 11/17/18 Liraglutide [Victoza 3-Dominick] 6 mg SC DAILY 02/28/18 11/17/18 Furosemide [Lasix] 40 mg PO DAILY 10/25/18 11/19/18 Atorvastatin [Lipitor] 10 mg PO DIN 11/02/18 11/19/18 Dutasteride [Avodart] 0.5 mg PO DAILY 11/02/18 11/17/18 Enalapril Maleate [Vasotec] 1 tab PO DAILY 11/02/18 11/17/18 Esomeprazole Magnesium [Nexium] 40 mg PO DAILY 11/02/18 11/17/18 Isosorbide Mononitrate [Isosorbide 60 mg PO DAILY 11/02/18 11/19/18 Mononitrate ER] Lactulose [Enulose] 10 gm PO DAILY PRN 11/02/18 11/17/18 Potassium Chloride [Klor-Con M10] 10 meq PO DAILY 11/02/18 11/17/18 Promethazine HCl/Codeine 5 ml PO PRN PRN 11/02/18 11/17/18 [Prometh-Codein 6.25-10 mg/5 ml] Ticagrelor [Brilinta] 90 mg PO DAILY 11/02/18 11/19/18 Umeclidinium Holliday [Incruse 62.5 mcg IH DAILY 11/02/18 11/17/18 Ellipta] Vit B Complx/Folic AC/C/Biotin 1 each PO DAILY 11/02/18 11/17/18 [Folika-T Tablet] MetFORMIN [glucOPHAGE] 1,000 mg PO BID 11/17/18 11/19/18 Tamsulosin [Flomax] 0.4 mg PO DAILY 11/17/18 11/19/18 Review of Systems - Physician Review All systems were reviewed & negative as marked: Yes - Review of Systems Constitutional: absent: Fevers Respiratory: SOB. absent: Cough Cardiovascular: absent: Chest Pain Gastrointestinal: Nausea. absent: Abdominal Pain, Vomiting Musculoskeletal: absent: Back Pain, Neck Pain Neurological: Dizziness. absent: Headache Physical Exam Vital Signs Reviewed: Yes Temperature: Afebrile Blood Pressure: Hypotensive Pulse: Regular Respiratory Rate: Tachypneic Appearance: Positive for: Well-Appearing, Non-Toxic, Comfortable, Other (overweight) Pain Distress: None Mental Status: Positive for: Alert and Oriented X 3 - Systems Exam Head: Present: Atraumatic, Normocephalic Pupils: Present: PERRL Extroacular Muscles: Present: EOMI Conjunctiva: Present: Normal Mouth: Present: Moist Mucous Membranes Neck: Present: Normal Range of Motion Respiratory/Chest: Present: Decreased Breath Sounds (diminished breath sounds due to body habitus), Other (crackles at the bases ). No: Respiratory Distress, Accessory Muscle Use Cardiovascular: Present: Regular Rate and Rhythm, Normal S1, S2. No: Murmurs Abdomen: No: Tenderness, Distention, Peritoneal Signs Back: Present: Normal Inspection Upper Extremity: Present: Normal Inspection. No: Cyanosis, Edema Lower Extremity: Present: Normal Inspection. No: Edema Neurological: Present: GCS=15, CN II-XII Intact, Speech Normal Skin: Present: Warm, Dry, Normal Color. No: Rashes Psychiatric: Present: Alert, Oriented x 3, Normal Insight, Normal Concentration Medical Decision Making ED Course and Treatment: 01/04/19 11:03 Impression: 68 year old male who presents to the emergency department complaining of dizziness and shortness of breath. Differential Diagnosis included but are not limited to: --PE --CHF --AAA Plan: -- ABG -- VBG -- Labs -- Cardiac Enzymes -- Chest X-ray -- IV fluids -- BIPAP -- O2 nasal cannula -- Urinalysis -- Reassess and disposition Prior Visits: Notes and results from previous visits were reviewed. Progress Notes: 01/04/19 13:06 Patient noted to be hypotensive with SPO2: 100%. Spoke to Dr. Dick(PCP) who states patient has severe triple vessel disease and was supposed to have undergone cardiac cath per Dr Simental(interventional cardiology, but had traveled to [place]. She agrees with management with ICU. Discussed case with Dr. Nikky Barnett(accountancy professor) who will come to see patient. 01/04/19 13:20 Patient was evaluated by Dr. Barnett who accepts patient into his service into the ICU with plan management for CTPE and Levophed. Spoke to Dr. Simental(cardiology) who will come down to see the patient. - Lab Interpretations Lab Results: 01/04/19 10:50 01/04/19 10:50 Lab Results 01/04/19 11:13: pO2 40, VBG pH 7.46 H, VBG pCO2 38.0 L, VBG HCO3 27.0, VBG Total CO2 28.2 H, VBG O2 Sat (Calc) 83.8 H, VBG Base Excess 3.1 H, VBG Potassium 4.8, Glucose 144 H, Lactate 4.2 H*, FiO2 28.0, Crit Value Called To Md, Crit Value Called By Rt, Blood Gas Notified Time 1130, Sodium 139.0, Chloride 103.0, Venous Blood Potassium 4.8 01/04/19 11:12: pCO2 36, pO2 117.0 H, HCO3 24.5, ABG pH 7.44, ABG Total CO2 25.6, ABG O2 Saturation 98.9 H, ABG O2 Content 15.6, ABG Base Excess 0.6, ABG Hemoglobin 11.4 L, ABG Carboxyhemoglobin 1.8 H, POC ABG HHb (Measured) 1.1, ABG Methemoglobin 0.8, ABG O2 Capacity 15.8 L, Hgb O2 Saturation 96.3, FiO2 28.0, Crit Value Called To Rn, Crit Value Called By Rt, Blood Gas Notified Time 1122 01/04/19 10:50: Sodium 139, Potassium 4.1, Chloride 100, Carbon Dioxide 26, Anion Gap 17, BUN 21, Creatinine 1.3, Est GFR ( Amer) > 60, Est GFR (Non- Af Amer) 55, Random Glucose 159 H, Calcium 9.4, Magnesium 1.4 L, Total Bilirubin 0.4, AST 20, ALT 12, Alkaline Phosphatase 97, Troponin I < 0.01 D, NT-Pro-B Natriuret Pep 1720 H, Total Protein 7.6, Albumin 4.2, Globulin 3.4, Albumin/Globulin Ratio 1.2 01/04/19 10:50: PT 12.7 H, INR 1.12, APTT 30.5 01/04/19 10:50: WBC 10.2, RBC 4.36, Hgb 12.6 L, Hct 38.6 L, MCV 88.5, MCH 28.9, MCHC 32.6, RDW 14.4, Plt Count 365, MPV 9.8, Neut % (Auto) 76.5 H, Lymph % (Auto) 14.2 L, [place] % (Auto) 5.5, Eos % (Auto) 3.5, Baso % (Auto) 0.3, Lymph # (Auto) 1.5, [place] # (Auto) 0.6, Eos # (Auto) 0.4, Baso # (Auto) 0.03, Absolute Neuts (auto) 7.79 H I have reviewed the lab results: Yes - RAD Interpretation Narrative RAD Interpretations (Text): 01/04/19 12:24 Chest X-ray reviewed by radiologist, shows: IMPRESSION: No active disease. Radiology Orders: 01/04/19 10:43 CHEST PORTABLE [RAD] Stat Tax Compliance Officer: Radiologist - EKG Interpretation EKG Interpretation (Text): 01/04/19 14:40 EKG performed at 10:43 reviewed by me, shows: NSR at 86bpm with Q waves seen in V4, prolonged QT interval, and no ST elevations. Interpreted by ED Physician: Yes Type: 12 lead EKG - Medication Orders Current Medication Orders: Sodium Chloride (Sodium Chloride 0.9%) 1,000 mls @ 100 mls/hr IV .Q10H STA Stop: 01/04/19 20:47 01/04/19 13:12 Sodium Chloride (Sodium Chloride 0.9%) 1,000 mls @ 100 mls/hr IV .Q10H STA Stop: 01/04/19 20:47 Last Admin: 01/04/19 10:50 Dose: 100 mls/hr eMAR Start Stop Document 01/04/19 10:50 KV (Rec: 01/04/19 11:21 [id number]) Intravenous Solution Start Date 01/04/19 Start Time 10:50 NOREPINEPHRINE BIT/0.9 % NACL (Levophed 4 Mg/ 250 Ml Ns Premixed) 4 mg in 250 mls @ 15 mls/hr IV .[id number] PRN; Protocol PRN Reason: TITRATE PER MD ORDER Discontinued Medications Sodium Chloride (Sodium Chloride 0.9%) 1,000 mls @ 999 mls/hr IV .Q1H1M STA Stop: 01/04/19 12:36 Last Admin: 01/04/19 10:45 Dose: 999 mls/hr eMAR Start Stop Document 01/04/19 10:45 KV (Rec: 01/04/19 11:40 K[id number]) Intravenous Solution Start Date 01/04/19 Start Time 10:45 - Scribe Statement The provider has reviewed the documentation as recorded by the Scribmarisa Chao Provider Scribe Attestation: All medical record entries made by the Scribe were at my direction and personally dictated by me. I have reviewed the chart and agree that the record accurately reflects my personal performance of the history, physical exam, medical decision making, and the department course for this patient. I have also personally directed, reviewed, and agree with the discharge instructions and disposition. Disposition/Present on Arrival - Present on Arrival Any Indicators Present on Arrival: No History of DVT/PE: No History of Uncontrolled Diabetes: No Urinary Catheter: No History of Decub. Ulcer: No History Surgical Site Infection Following: None - Disposition Have Diagnosis and Disposition been Completed?: Yes Diagnosis: Respiratory distress, Hypotension Disposition Time: 15:04 Patient Plan: Admission, ICU Condition: CRITICAL
[2019-01-04 11:19] LABS: BASO # 0.03 K/mm3 (0.0-2.0); BASO % 0.3 % (0.0-3.0); EOS # 0.4 (0.0-0.7); EOS % 3.5 % (1.5-5.0); HEMOGLOBIN 12.6 g/dL (14.0-18.0); LYMPH # 1.5 (1.2-3.4); LYMPH % 14.2 % (22.0-35.0); MEAN CELL VOLUME 88.5 fl (80.0-105.0); MEAN CORPUSCULAR HEMOGLOBIN 28.9 pg (25.0-35.0); MEAN CORPUSCULAR HGB CONC 32.6 g/dl (31.0-37.0); MEAN PLATELET VOLUME 9.8 fl (7.0-11.0); MONO # 0.6 (0.1-0.6); MONO % 5.5 % (1.0-6.0); RBC 4.36 10^6/uL (3.5-6.1); RED CELL DISTRIBUTION WIDTH 14.4 % (11.5-14.5); WHITE BLOOD COUNT 10.2 10^3/uL (4.5-11.0)
[2019-01-04 11:23] LABS: ARTERIAL BLOOD GAS HCO3 24.5 mmol/L (21-28); ARTERIAL BLOOD GAS HEMOGLOBIN 11.4 g/dL (11.7-17.4); ARTERIAL BLOOD GAS O2 CAPACITY 15.8 mL/dl (16-24); ARTERIAL BLOOD GAS O2 CONTENT 15.6 ML/dl (15-23); ARTERIAL BLOOD GAS O2 SAT 98.9 % (95-98); ARTERIAL BLOOD GAS PCO2 36 mm/Hg (35-45); ARTERIAL BLOOD GAS PH 7.44 (7.35-7.45); ARTERIAL BLOOD GAS TCO2 25.6 mmol.L (22-28)
[2019-01-04 11:30] LABS: VENOUS BLOOD GAS BASE EXCESS 3.1 mmol/L (0.0-2.0); VENOUS BLOOD GAS PO2 40 mm/Hg (30-55); VENOUS BLOOD PH 7.46 (7.32-7.43)
[2019-01-04 11:32] LABS: INR 1.12; PARTIAL THROMBOPLASTIN TIME 30.5 Seconds (26.9-38.3); PROTHROMBIN TIME 12.7 SECONDS (9.4-12.5)
[2019-01-04 11:37] LABS: ALB/GLOB RATIO 1.2 (1.1-1.8); ALBUMIN 4.2 g/dL (3.0-4.8); ALT/SGPT 12 U/L (7-56); AST/SGOT 20 U/L (17-59); BLOOD UREA NITROGEN 21 mg/dL (7-21); CALCIUM 9.4 mg/dL (8.4-10.5); GFR NON-AFRICAN AMERICAN 55
[2019-01-04 11:48] LABS: B-TYPE NATRIURETIC PEPTIDE 1720 pg/mL (0-450); TROPONIN I < 0.01 ng/mL
--- NOTE | 2019-01-04 12:06 | RAD ---
Date of service: 01/04/2019 HISTORY: sob COMPARISON: 11/17/2018 FINDINGS: LUNGS: No active pulmonary disease. PLEURA: No significant pleural effusion identified, no pneumothorax apparent. CARDIOVASCULAR: No aortic atherosclerotic calcification present. Moderate cardiomegaly. No pulmonary vascular congestion. OSSEOUS STRUCTURES: No significant abnormalities. VISUALIZED UPPER ABDOMEN: Normal. OTHER FINDINGS: None. IMPRESSION: No active disease.
[2019-01-04] MEDS ORDERED: NOREPINEPHRINE BIT/0.9 % NACL 4 MG/250 ML BAG IV PRN (12:44)
--- NOTE | 2019-01-04 13:12 | CARD ---
APPROVED REPORT Date of service: 01/04/2019 EKG Measurement Heart [id number] <Conclusion> Normal sinus rhythm Inferior infarct, age Old.
[2019-01-04] MEDS ORDERED: Piperacillin/Tazobact 2.25gm 2.25 GM/100 ML BAG IVPB STA (14:28)
[2019-01-04] MEDS ORDERED: Vancomycin 2 GM in Sodium Chloride 0.9% 500 ML IVPB STA (14:28)
--- NOTE | 2019-01-04 14:35 | CP.PCM.CON ---
<Kelsi Crowley - Last Filed: 01/04/19 16:13> History of Present Illness - History of Present Illness History of Present Illness: ICU CONSULT NOTE Kelsi Crowley PGY1 68 y/o M with PMHx of CAD x 6 stents s/p CABG with BOLANOS to LAD and SVG to RCA grafts, AAA, carotid stenosis s/p endarterectomy, HTN, DM, HLD, COPD, BPH presents to [facility] with complaints of SOB with associated dizziness thats been ongoing for several months. Pt decided to come to ED today because SOB has become unbearable to the point that patient has been unable to perform dialy activities. Pt experiences SOB at rest. Pt recently returned from [place] 2 days ago, however reports he has been having shortness of breath for several months prior. He reports he visited his PMD yesterday and his lasix was switched from 40mg bid to 80mg bid. He reports he has been having associated nausea, dry mouth and leg swelling. He denies any recent symptoms of fevers, chills. He denies headache, chest pain, palpitations, vomiting, constipation, diarrhea, dysuria, hematuria, hematochezia. In the ED, pt found to be hypotensive with BP reaching as low as 59/34. Pt started on 1L IVF, maintenance IVF@ 100mls/hr and peripheral levophed @ 4mcg/min upon transfer to ICU. PMH: CAD x 6 stents s/p CABG with BOLANOS to LAD and SVG to RCA grafts, AAA, carotid stenosis s/p endarterectomy, HTN, DM, HLD, COPD, BPH All: NKDA PSH: CABG SH: 1/2 pack smoker x 20 years FH: F: CAD, SD, DM Meds (per PMD note): Brilinta 90mg, Amaryl 4mg, asprin 81mg, plavix 75mg, metpro lol 25mg, victoza, flomax, metformin 1000mg, isosorbide 60mg qd, nexium 40mg, enalapril 2.5mg Review of Systems - Review of Systems Review of Systems: per HPI Past Patient History - Infectious Disease Hx of Infectious Diseases: None - Tetanus Immunizations Tetanus Immunization: Unknown - Past Medical History & Family History Past Medical History?: Yes - Past Social History Smoking Status: Former Smoker - CARDIAC Hx Cardiac Disorders: Yes (cp, mi 1998, aaa, cad) Hx Angina: Yes Hx Cardia Arrhythmia: Yes Hx Congestive Heart Failure: Yes Hx Hypertension: Yes Hx Peripheral Edema: Yes (ble +1) Other/Comment: cabg 1998 [facility] - PULMONARY Hx Respiratory Disorders: Yes Hx Asthma: Yes Hx Chronic Obstructive Pulmonary Disease (COPD): Yes Hx Sleep Apnea: Yes (does not use his cpap) Other/Comment: chronic smoker cough, quit 6 days ago using chantix, pt does not use his cpap c/o he has nose and throat problem - NEUROLOGICAL Hx Neurological Disorder: Yes HX Cerebrovascular Accident: Yes (2018) Hx Dizziness: Yes - HEENT Hx HEENT Problems: Yes Hx Cataracts: Yes (Bilateral Cataract surgery) Hx Glaucoma: Yes Other/Comment: LASER SURGERY FOR GLAUCOMA. SURGERY FOR TRAUMA TO LEFT EAR, work related, was working and metal flew into eardrum, hearing impaired left ear - RENAL Hx Chronic Kidney Disease: No - ENDOCRINE/METABOLIC Hx Endocrine Disorders: Yes Hx Diabetes Mellitus Type 1: Yes Hx Diabetes Mellitus Type 2: Yes - HEMATOLOGICAL/ONCOLOGICAL Hx Blood Disorders: No - INTEGUMENTARY Hx Dermatological Problems: Yes Other/Comment: lle scaley dry skin dry scabs +1 edema, dry thick toenails both feet, rle +1 edema multiple skin discolorations, +1 pitting edema both feet - MUSCULOSKELETAL/RHEUMATOLOGICAL Hx Falls: Yes (r leg gives out last fall 6 months ago) - GASTROINTESTINAL Hx Gastrointestinal Disorders: Yes (upper gi bleed, obese) Other/Comment: HX: 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 - GENITOURINARY/GYNECOLOGICAL Hx Genitourinary Disorders: Yes Hx Prostate Problems: Yes (BPH) Other/Comment: Takes Flomax - PSYCHIATRIC Hx Psychophysiologic Disorder: No Hx Substance Use: No - SURGICAL HISTORY Hx Cardiac Catheterization: Yes Hx Coronary Stent: Yes Hx Musculoskeletal Surgery: Yes Other/Comment: pt fell about 6 yrs ago orif right knee to lower leg with viviane at [facility] - ANESTHESIA Hx Anesthesia: Yes Hx Anesthesia Reactions: No Hx Malignant Hyperthermia: No Meds Allergies/Adverse Reactions: Allergies Allergy/AdvReac Type Severity Reaction Status Date / Time No Known Allergies Allergy Verified 10/22/18 02:31 - Medications Medications: Current Medications Sodium Chloride (Sodium Chloride 0.9%) 1,000 mls @ 100 mls/hr IV .Q10H STA Stop: 01/04/19 20:47 Last Admin: 01/04/19 10:50 Dose: 100 mls/hr NOREPINEPHRINE BIT/0.9 % NACL (Levophed 4 Mg/ 250 Ml Ns Premixed) 4 mg in 250 mls @ 15 mls/hr IV .[id number] PRN; Protocol PRN Reason: TITRATE PER MD ORDER Last Admin: 01/04/19 14:05 Dose: 4 mcg/min, 15 mls/hr Physical Exam - Constitutional Appears: Well, Non-toxic, No Acute Distress - Head Exam Head Exam: ATRAUMATIC, NORMAL INSPECTION - Eye Exam Eye Exam: EOMI, Normal appearance - ENT Exam ENT Exam: Mucous Membranes Moist, Normal Exam - Neck Exam Neck exam: Positive for: Normal Inspection Additional comments: no JVD, no hepatojugular reflex - Respiratory Exam Respiratory Exam: Rales (b/l lung bases), NORMAL BREATHING PATTERN - Cardiovascular Exam Cardiovascular Exam: REGULAR RHYTHM, +S1, +S2. absent: Gallop - GI/Abdominal Exam GI & Abdominal Exam: Normal Bowel Sounds, Soft, Tenderness (b/l lower quadrant). absent: Firm, Guarding Additional comments: no abdominal bruit - Extremities Exam Extremities exam: Negative for: calf tenderness, normal inspection, pedal edema - Back Exam Back exam: NORMAL INSPECTION - Neurological Exam Neurological exam: Alert, Oriented x3 - Psychiatric Exam Psychiatric exam: Normal Affect, Normal Mood - Skin Skin Exam: Dry, Intact, Warm Results - Vital Signs Recent Vital Signs: Last Vital Signs Temp 97.4 F L 01/04/19 10:30 Pulse 78 01/04/19 14:19 Resp 18 01/04/19 14:19 BP 115/78 01/04/19 14:19 Pulse Ox 96 01/04/19 14:19 - Labs Result Diagrams: 01/04/19 10:50 01/04/19 10:50 Labs: Laboratory Results - last 24 hr 01/04/19 01/04/19 01/04/19 10:47 10:50 10:50 WBC 10.2 RBC 4.36 Hgb 12.6 L Hct 38.6 L MCV 88.5 MCH 28.9 MCHC 32.6 RDW 14.4 Plt Count 365 MPV 9.8 Neut % (Auto) 76.5 H Lymph % (Auto) 14.2 L Starr % (Auto) 5.5 Eos % (Auto) 3.5 Baso % (Auto) 0.3 Lymph # (Auto) 1.5 Starr # (Auto) 0.6 Eos # (Auto) 0.4 Baso # (Auto) 0.03 Absolute Neuts (auto) 7.79 H PT 12.7 H INR 1.12 APTT 30.5 pCO2 pO2 HCO3 ABG pH ABG Total CO2 ABG O2 Saturation ABG O2 Content ABG Base Excess ABG Hemoglobin ABG Carboxyhemoglobin POC ABG HHb (Measured) ABG Methemoglobin ABG O2 Capacity VBG pH VBG pCO2 VBG HCO3 VBG Total CO2 VBG O2 Sat (Calc) VBG Base Excess VBG Potassium Hgb O2 Saturation Glucose Lactate FiO2 Crit Value Called To Crit Value Called By Blood Gas Notified Time Sodium Potassium Chloride Carbon Dioxide Anion Gap BUN Creatinine Est GFR ( Amer) Est GFR (Non-Af Amer) POC Glucose (mg/dL) 187 H Random Glucose Calcium Magnesium Total Bilirubin AST ALT Alkaline Phosphatase Troponin I NT-Pro-B Natriuret Pep Total Protein Albumin Globulin Albumin/Globulin Ratio Venous Blood Potassium 01/04/19 01/04/19 01/04/19 10:50 11:12 11:13 WBC RBC Hgb Hct MCV MCH MCHC RDW Plt Count MPV Neut % (Auto) Lymph % (Auto) Starr % (Auto) Eos % (Auto) Baso % (Auto) Lymph # (Auto) Starr # (Auto) Eos # (Auto) Baso # (Auto) Absolute Neuts (auto) PT INR APTT pCO2 36 pO2 117.0 H 40 HCO3 24.5 ABG pH 7.44 ABG Total CO2 25.6 ABG O2 Saturation 98.9 H ABG O2 Content 15.6 ABG Base Excess 0.6 ABG Hemoglobin 11.4 L ABG Carboxyhemoglobin 1.8 H POC ABG HHb (Measured) 1.1 ABG Methemoglobin 0.8 ABG O2 Capacity 15.8 L VBG pH 7.46 H VBG pCO2 38.0 L VBG HCO3 27.0 VBG Total CO2 28.2 H VBG O2 Sat (Calc) 83.8 H VBG Base Excess 3.1 H VBG Potassium 4.8 Hgb O2 Saturation 96.3 Glucose 144 H Lactate 4.2 H* FiO2 28.0 28.0 Crit Value Called To Wanda Wray Crit Value Called By Rt Rt Blood Gas Notified Time 1122 1130 Sodium 139 139.0 Potassium 4.1 Chloride 100 103.0 Carbon Dioxide 26 Anion Gap 17 BUN 21 Creatinine 1.3 Est GFR ( Amer) > 60 Est GFR (Non-Af Amer) 55 POC Glucose (mg/dL) Random Glucose 159 H Calcium 9.4 Magnesium 1.4 L Total Bilirubin 0.4 AST 20 ALT 12 Alkaline Phosphatase 97 Troponin I < 0.01 D NT-Pro-B Natriuret Pep 1720 H Total Protein 7.6 Albumin 4.2 Globulin 3.4 Albumin/Globulin Ratio 1.2 Venous Blood Potassium 4.8 Assessment & Plan - Assessment and Plan (Free Text) Assessment: 68 y/o M with PMHx of CAD x 6 stents s/p CABG with BOLANOS to LAD and SVG to RCA grafts, AAA, carotid stenosis s/p endarterectomy, HTN, DM, HLD, COPD, BPH admitted to ICU for hypotension without response from fluid resuscitation requiring vasopressor support Plan: Neuro: AxO X GCS 15 Cardio Hypotension unclear etiology, Lactate elevated. Non responsive to fluid resuscitation Given 1L IVF bolus in ED with maintenance fluids @100mls/hr to tx for hypovolemic shock continue levophed @4 mcg/min Will start milrinone drip for cardiogenic shock, per cardio recs CTA PE protocol to r/o obstructive shock HFrEF Hold home lasix, ACEi, thiazide diuretic, b-will CAD continue home ASA, brilinta, statin. Hold b-will/nitrate Pulm f/u CTA PE protocol, r/o obstructive shock ID Will start empiric vanc/zosyn f/u pancultures, procalcitonin GI PPX with pepcid /Renal maintain euvolemia replete electrolytes Endocrine maintain euglycemia between 140-180 per NICE SUGAR trial DVT/GI PPX: Lovenox/Pepid Case seen, examined, and discussed with attending physician, Dr. Barnett. Further recs per him Kelsi Crowley PGY1 <Arjun Barnett - Last Filed: 01/04/19 16:21> Meds - Medications Medications: Current Medications Aspirin (Ecotrin) 81 mg PO DAILY [facility] Atorvastatin Calcium (Lipitor) 10 mg PO DIN [facility] Enoxaparin Sodium (Lovenox) 30 mg SC DAILY [facility]; Protocol Famotidine (Pepcid) 20 mg IVP DAILY [facility] Furosemide (Lasix) 40 mg PO 0800,1400 K[facility] Sodium Chloride (Sodium Chloride 0.9%) 1,000 mls @ 100 mls/hr IV .Q10H STA Stop: 01/04/19 20:47 Last Admin: 01/04/19 10:50 Dose: 100 mls/hr NOREPINEPHRINE BIT/0.9 % NACL (Levophed 4 Mg/ 250 Ml Ns Premixed) 4 mg in 250 mls @ 15 mls/hr IV .[id number] PRN; Protocol PRN Reason: TITRATE PER MD ORDER Last Admin: 01/04/19 14:05 Dose: 4 mcg/min, 15 mls/hr Vancomycin HCl 2 gm/ Sodium (Chloride) 500 mls @ 170 mls/hr IVPB ONCE STA; Protocol Stop: 01/04/19 17:24 Milrinone Lactate/Dextrose (Primacor 20mg/100ml D5w) 100 mls @ 12.757 mls/hr IV .[id number] PRN; Protocol PRN Reason: TITRATE PER MD ORDER Stop: 01/06/19 07:00 Insulin Human Regular (Humulin R Low) 0 units SC ACHS K[facility]; Protocol Isosorbide Mononitrate (Imdur) 60 mg PO DAILY [facility] Lisinopril (Zestril) 2.5 mg PO DAILY [facility] Metoprolol Succinate (Toprol Xl) 25 mg PO DAILY [facility] Spironolactone (Aldactone) 25 mg PO BID [facility] Ticagrelor (Brilinta) 90 mg PO BID [facility] Results - Vital Signs Recent Vital Signs: Last Vital Signs Temp 97.4 F L 01/04/19 10:30 Pulse 78 01/04/19 15:52 Resp 18 01/04/19 15:52 BP 109/55 L 01/04/19 14:42 Pulse Ox 96 01/04/19 14:42 - Labs Result Diagrams: 01/04/19 10:50 01/04/19 10:50 Labs: Laboratory Results - last 24 hr 01/04/19 01/04/19 01/04/19 10:47 10:50 10:50 WBC 10.2 RBC 4.36 Hgb 12.6 L Hct 38.6 L MCV 88.5 MCH 28.9 MCHC 32.6 RDW 14.4 Plt Count 365 MPV 9.8 Neut % (Auto) 76.5 H Lymph % (Auto) 14.2 L Starr % (Auto) 5.5 Eos % (Auto) 3.5 Baso % (Auto) 0.3 Lymph # (Auto) 1.5 Starr # (Auto) 0.6 Eos # (Auto) 0.4 Baso # (Auto) 0.03 Absolute Neuts (auto) 7.79 H PT 12.7 H INR 1.12 APTT 30.5 pCO2 pO2 HCO3 ABG pH ABG Total CO2 ABG O2 Saturation ABG O2 Content ABG Base Excess ABG Hemoglobin ABG Carboxyhemoglobin POC ABG HHb (Measured) ABG Methemoglobin ABG O2 Capacity VBG pH VBG pCO2 VBG HCO3 VBG Total CO2 VBG O2 Sat (Calc) VBG Base Excess VBG Potassium Hgb O2 Saturation Glucose Lactate FiO2 Crit Value Called To Crit Value Called By Blood Gas Notified Time Sodium Potassium Chloride Carbon Dioxide Anion Gap BUN Creatinine Est GFR ( Amer) Est GFR (Non-Af Amer) POC Glucose (mg/dL) 187 H Random Glucose Calcium Magnesium Total Bilirubin AST ALT Alkaline Phosphatase Troponin I NT-Pro-B Natriuret Pep Total Protein Albumin Globulin Albumin/Globulin Ratio Venous Blood Potassium 01/04/19 01/04/19 01/04/19 10:50 11:12 11:13 WBC RBC Hgb Hct MCV MCH MCHC RDW Plt Count MPV Neut % (Auto) Lymph % (Auto) Starr % (Auto) Eos % (Auto) Baso % (Auto) Lymph # (Auto) Starr # (Auto) Eos # (Auto) Baso # (Auto) Absolute Neuts (auto) PT INR APTT pCO2 36 pO2 117.0 H 40 HCO3 24.5 ABG pH 7.44 ABG Total CO2 25.6 ABG O2 Saturation 98.9 H ABG O2 Content 15.6 ABG Base Excess 0.6 ABG Hemoglobin 11.4 L ABG Carboxyhemoglobin 1.8 H POC ABG HHb (Measured) 1.1 ABG Methemoglobin 0.8 ABG O2 Capacity 15.8 L VBG pH 7.46 H VBG pCO2 38.0 L VBG HCO3 27.0 VBG Total CO2 28.2 H VBG O2 Sat (Calc) 83.8 H VBG Base Excess 3.1 H VBG Potassium 4.8 Hgb O2 Saturation 96.3 Glucose 144 H Lactate 4.2 H* FiO2 28.0 28.0 Crit Value Called To Rn Crit Value Called By Rt Rt Blood Gas Notified Time 1122 1130 Sodium 139 139.0 Potassium 4.1 Chloride 100 103.0 Carbon Dioxide 26 Anion Gap 17 BUN 21 Creatinine 1.3 Est GFR ( Amer) > 60 Est GFR (Non-Af Amer) 55 POC Glucose (mg/dL) Random Glucose 159 H Calcium 9.4 Magnesium 1.4 L Total Bilirubin 0.4 AST 20 ALT 12 Alkaline Phosphatase 97 Troponin I < 0.01 D NT-Pro-B Natriuret Pep 1720 H Total Protein 7.6 Albumin 4.2 Globulin 3.4 Albumin/Globulin Ratio 1.2 Venous Blood Potassium 4.8 Addendum Addendum: 01/04/19 16:17 MICU Attending Addendum patient seen and examined in the ed d/w housestaff and agree with ntoe above with the following additions/exceptions 68 M with PMHx of CAD x 6 stents s/p CABG with BOLANOS to LAD and SVG to RCA grafts, AAA, carotid stenosis s/p endarterectomy, HTN, DM, HLD, COPD, admitted with shock. He has symptoms of lightheadedness and sob and found to be hypotensive in the ED with elevated lac. Recently had his diuretic dose increased. I suspect he is fluid depleted. His blood pressue improved with fluids in the ED however still requiring 4mcg levophed Doubt sepsis given lack of fever and normal WBC still empircally cover with abx while sending off cultures, flu and procal cardio on board f/u recs monitor urine output HOLDING home antihypertensives until off pressors trend lac and check another tni SOB improved CTA ordered to r/o PE .. doubt PE given lack of tachycardia and neg troponin CXR similar to prev not showing pulm edema monitor in ICU full code Rest of care as mentioned in resident note above Arjun Barnett MD MICU Attending 01/04/19 16:21
--- NOTE | 2019-01-04 15:41 | CT ---
Date of service: 01/04/2019 PROCEDURE: CT Chest with contrast (Pulmonary Angiogram) HISTORY: SOB COMPARISON: 12/25/2017 TECHNIQUE: Axial computed tomography images were obtained of the chest in the pulmonary arterial phase of enhancement. Coronal and sagittal reformatted images were created and reviewed. Intravenous contrast dose: 100 cc of Visipaque Radiation dose: Total exam DLP = 654.74 mGy-cm. This CT exam was performed using one or more of the following dose reduction techniques: Automated exposure control, adjustment of the mA and/or kV according to patient size, and/or use of iterative reconstruction technique. FINDINGS: PULMONARY ARTERIES: Unremarkable. No pulmonary embolism. AORTA: No acute findings. No thoracic aortic aneurysm. Aortic and coronary artery calcifications. Aortic tortuosity LUNGS: Unremarkable. No nodule, mass or pulmonary consolidation. PLEURAL SPACES: Unremarkable. No effusion or pneumothorax. HEART: Unremarkable. No cardiomegaly. No significant pericardial effusion. LYMPH NODES: No lymphadenopathy. BONES, CHEST WALL: Unremarkable. No fracture or destructive lesion OTHER FINDINGS: Unremarkable. IMPRESSION: Unremarkable CT pulmonary angiogram. No pulmonary embolus.
[2019-01-04] MEDS ORDERED: Pneumococcal 23-Valent Vaccine IM ONE (16:17)
[2019-01-04] MEDS ORDERED: Influenza Vaccine 60 mcg/0.5 mL SYR (4YR UP) IM ONE (16:17)
[2019-01-04] MEDS: Milrinone 20mg/100ml D5W 100 ML IV PRN (17:01)
[2019-01-04 17:07] LABS: VENOUS BLOOD GAS BASE EXCESS 2.6 mmol/L (0.0-2.0); VENOUS BLOOD GAS PO2 30 mm/Hg (30-55); VENOUS BLOOD PH 7.34 (7.32-7.43)
[2019-01-04] MEDS: Insulin Reg-LOW-Coverage SC SCH ×2 (17:18→22:16)
[2019-01-04 21:10] LABS: VENOUS BLOOD GAS BASE EXCESS 2.9 mmol/L (0.0-2.0); VENOUS BLOOD GAS PO2 60 mm/Hg (30-55); VENOUS BLOOD PH 7.42 (7.32-7.43)
--- NOTE | 2019-01-05 00:25 | CON ---
DATE: 01/04/2019 REASON FOR CONSULTATION: Followup, hypotension, dizziness, shortness of breath, history of coronary artery disease, CABG, and history of stent in the past. BRIEF CLINICAL HISTORY: This is a 68-year-old male with past medical history significant for diabetes, hypertension, hyperlipidemia, very noncompliant with the medication, history of coronary artery disease, and history of CABG, who was here couple of months ago and a cardiac catheterization done, found to be only functioning BOLANOS and the patient is scheduled for redo surgery and is referred back to [facility], Dr. Lomeli, but the patient did not follow through. According to the patient, family and so he went to [place] and did not follow through. He came two days ago from [place] and he complained with swelling and shortness of breath there, so saw Dr. Gustafson yesterday who doubled up the Lasix 80 mg twice, and this morning, the patient was feeling dizzy and mild shortness of breath. When the patient came to the emergency room, found to be blood pressure , got 1 L of bolus saline, now the pressure is 104/80 and heart rate 60. No further episode of dizziness or shortness of breath noted. Denies any chest pain. Denies any diaphoresis. PAST MEDICAL HISTORY: Significant for history of coronary artery disease, history of multiple stents, history of recent coronary intervention probably 6 to 8 weeks ago at [facility], and history of carotid artery endarterectomy 6 weeks ago. The patient had most recently cardiac catheterization done at [facility] only functional BOLANOS to LAD, none of the graft was found. The patient was scheduled for redo surgery and CT angio, but the patient did not go twice, one in October, then rescheduled and appointment made, but the patient said he went to [place] because of two deaths in the family, now the patient came yesterday to [place]. Past history significant for coronary artery disease, CABG at [facility] in 1998 with BOLANOS was grafted to LAD and SVG to RCA. Over the course of the time, the patient had multiple stents done and most recently as mentioned the patient had a coronary intervention done with the circumflex at [facility] who had a cardiac catheterization done at [facility] dated 10/23/2018 where the only graft BOLANOS was found to be function, BOLANOS to LAD occluded, SVG to RCA occluded, and campo RCA occluded left main. So, the patient was referred to [facility], Dr. Felix Lomeli, chief of Cardiothoracic Surgery for redo evaluation where the patient was scheduled for CT angio, but the patient did not show up twice and then went to [place] and now he came yesterday. MOST RECENT CARDIAC WORKUP FOLLOWS: The patient had cardiac catheterization at [facility], dated 10/23/2018 where the BOLANOS was grafted to LAD noted, occluded SVG to RCA, occluded campo RCA, and occluded left main, decreased LV function, ejection fraction 30%, and EDP was in the range of 30. Date of catheterization was 10/23/2018. Then, the patient had 40 pages chart that was in the [facility], dated 10/24/2018 where the patient went and admitted there. The [facility] dated received the fax 10/24/2018 reviewed as follows: 1. The patient had PICC line on the left basilic vein because of the previous poor venous access. 2. The patient had a carotid Doppler on 07/27/2018 that shows suspicious left internal carotid artery occlusion. 3. The patient had a carotid angiogram done on 08/14/2018 that shows patent stent in the right common carotid going into the internal carotid, but left internal artery with 90% to 95% stenosis noted. 4. The patient had left carotid artery endarterectomy done on 08/08/2018. 5. The patient had echocardiography done at [facility] dated 07/27/2018 that showed ejection fraction 42% with mild mitral regurgitation, mild tricuspid regurgitation, [id number] aortic regurgitation, and mild mitral regurgitation. 6. Since the patient had multiple blood cultures done 08/03/2017 to 08/12/2017 that shows negative; no blood culture positive. 7. The patient had a cardiac catheterization on 08/13/2018 at [facility] with stenting of the circumflex was done. At that time, the cardiac catheterization revealed normal left main, left anterior descending artery occluded, circumflex occluded, 80% stenosis in the proximal segment which was stented, right coronary artery was occluded, graft to the RCA was occluded, and BOLANOS was patent to LAD. 8. As mentioned, the patient had a cardiac catheterization in [facility] on 10/23/2018 where the patent BOLANOS to LAD was noted. The patient had echocardiography done on 10/23/2018 at the [facility] that revealed mild concentric LVH, systolic function moderately impaired, ejection fraction 30% to 35%, mild aortic regurgitation, [id number] mitral regurgitation, [id number] tricuspid regurgitation, RV systolic pressure of 34, aortic root is mildly dilated, ascending aorta is mildly dilated, and IVC is dilated, and no pericardial effusion. The patient was discharged on nitrate, beta-will, Brilinta with the follow up with Dr. Washington where the patient went once, but did not go through but the patient had authorization, CT angio, but the patient went to [place]; now the patient came with shortness of breath. Above summary chart was from the [facility] which we received on 10/24/2018 from [place], which was summarized as above. CURRENT MEDICATIONS: The patient at home is on 90 mg of Brilinta, Flomax, lactulose, metformin, metoprolol, aspirin, and Lasix 80 twice a day. ALLERGIES: NO KNOWN DRUG ALLERGY. SOCIAL HISTORY: Denies any smoking. Denies any history of alcohol abuse. REVIEW OF SYSTEMS: As per HPI. PHYSICAL EXAMINATION: GENERAL: As follows; height of the patient is 5 feet 6 inches, weight of the patient 250 pounds, and body mass index 40.4 kg/m2. VITAL SIGNS: Temperature afebrile, heart rate 78, blood pressure 109/80, admitting blood pressure was 70/60, at one point the patient with blood pressure of 53/26. HEENT: PERRLA. Extraocular muscles intact. NECK: Supple. No carotid bruits or thyromegaly. CHEST: Clear to auscultation. HEART: S1 and S2 regular. ABDOMEN: Soft. EXTREMITIES: Clubbing and cyanosis negative. LABORATORY DATA: Blood workup as follows; WBC 10.2, hemoglobin 12.6, hematocrit 38.6, and platelet count 365. INR 1.1. Chemistry shows sodium 139, potassium 4.1, chloride 100, carbon dioxide 26, anion gap of 17, BUN 21, and creatinine 1.3. BNP 1720 and troponin 0.01. EKG shows normal sinus rhythm; no acute ST-T changes, inferior wall NE of undetermined age. IMPRESSION: A 68-year-old male with past medical history significant for coronary artery disease, status post two vessels coronary artery bypass graft, left internal mammary artery to left anterior descending, saphenous vein graft to right coronary artery was done in 1998 at [facility], over the course of time, the patient had multiple stents done. Most recently, eight weeks ago, the patient had campo circumflex was done. After that, the patient admitted here on 10/24/2019 with cardiac catheterization revealed occluded left main, occluded circumflex, occluded campo right coronary artery, occluded saphenous vein graft to right coronary artery which was before, and only patent left internal mammary artery. The patient was sent for redo coronary artery bypass graft after CT angio, but the patient lost followup. Very noncompliance and then went to [place] and came yesterday with the shortness of breath and dizzy and hypotensive. Most likely, the hypotensive is secondary to over diuresed. Echocardiogram did not show any acute ST-T changes. RECOMMENDATIONS: One liter of bolus fluid was given. The patient increased the blood pressure to 110. We will start low dose of Primacor as blood pressure is tolerated, gentle diuresis, and resume previous medications. We will follow with you. Thank you Dr. Wick for providing us the opportunity in taking care of the patient, Said Enrique. Tammy Simental MD
[2019-01-05] MEDS: Milrinone 20mg/100ml D5W 100 ML IV PRN (01:08)
--- NOTE | 2019-01-05 04:39 | HP ---
DATE OF EXAM: 01/04/2019 HISTORY OF PRESENT ILLNESS: The patient is a 68-year-old came to emergency room because of increasing shortness of breath with feeling very weak, dizzy, lightheaded that has been going on for couple of months. The patient was admitted couple of times including 10/2017, at that point he had cardiac cath done, he was found to have triple-vessel disease. He was discharged and he was referred to Dr. Felix Lomeli at [facility] and he was suppose to followup done but they have been calling his home number. The patient never answered, we called multiple times also. When I interviewed the patient this morning, he said he was out of country, his brother he went to [place]. He was never able to make that. Currently the patient does not have any chest pain, but has shortness of breath and dizziness. PAST MEDICAL HISTORY: Significant for: 1. Hypertension. 2. Coronary artery disease, status post cardiac cath on 10/2017, was found to have triple-vessel disease. 3. Poorly controlled diabetes. 4. Morbid obesity. 5. History of coronary artery bypass surgery in 06/1999, he had two vessel pass with left internal mammary artery to left anterior descending artery and saphenous vein graft was placed to right coronary artery, afterward he has multiple angioplasties. Recently, he was admitted in [facility], where he underwent carotid endarterectomy of left carotid in [place]. 6. History of COPD. 7. History of aortic aneurysm. 8. Chronic back pain. ALLERGIES: NOT ALLERGIC TO ANY MEDICATIONS. SOCIAL HISTORY: Used to be heavy smoker. He still smokes few cigarettes off and on. 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 MEDICATIONS AT HOME: He is on Amaryl 4 mg daily, Plavix 75 daily, aspirin 81 daily, Lasix 40 mg twice a day, metoprolol 25 daily, Victoza, he is on Incruse, Brilinta 90 mg twice a day, Flomax 0.4 daily, Ranexa 1000 twice a day, he is on Singulair 10 mg daily, metformin 1000 twice a day, lactulose, omeprazole 40 mg daily, Enalapril 10 mg daily, Lipitor 80 mg daily. PHYSICAL EXAMINATION GENERAL: He is sitting in bed seems to be comfortable, feel dizzy. VITAL SIGNS: He is afebrile, pulse 75, respirations 18, blood pressure 108/71. LUNGS: Bilateral fair airflow. No rhonchi or crackle. HEART: S1, S2 audible. ABDOMEN: Soft, obese, nontender. No rebound. No guarding. NEUROLOGIC: He is awake, alert, oriented, able to communicate. LABORATORY DATA: WBC 10.2, hemoglobin 12. 6, hematocrit 38.6, platelet 365. PT 12.7, INR 1.12. Chemistry: Sodium 139, potassium 4.1, chloride 100, CO2 of 26, BUN 21, creatinine 1.3, blood sugar of 187, magnesium 1.4, BNP 1720. ASSESSMENT: 1. Hypotension, rule out coronary artery disease, rule out sepsis. 2. Insulin-dependent diabetes. 3. Coronary artery disease, status post open heart surgery. 4. Status post multiple angioplasties. 5. History of left carotid endarterectomy. 6. History of hypertension, currently hypotensive. 7. Chronic obstructive pulmonary disease. PLAN: Currently, the patient is on spironolactone, Brilinta, aspirin 81 daily, he is on isosorbide 60 mg daily, Lasix 40 every 12, Lipitor 10 mg daily, he is on Lovenox, he is on Levophed, he is on Primacor drip. He is being covered with antibiotic and will follow up his electrolytes, CBC, and CPM in a.m. Cardiology consult has been requested. Beto Dick MD
[2019-01-05 06:18] LABS: BASO # 0.02 K/mm3 (0.0-2.0); BASO % 0.2 % (0.0-3.0); EOS # 0.4 (0.0-0.7); EOS % 4.5 % (1.5-5.0); HEMOGLOBIN 11.5 g/dL (14.0-18.0); LYMPH # 1.1 (1.2-3.4); LYMPH % 13.4 % (22.0-35.0); MEAN CELL VOLUME 89.3 fl (80.0-105.0); MEAN CORPUSCULAR HEMOGLOBIN 28.5 pg (25.0-35.0); MEAN CORPUSCULAR HGB CONC 31.9 g/dl (31.0-37.0); MEAN PLATELET VOLUME 9.3 fl (7.0-11.0); MONO # 0.6 (0.1-0.6); RBC 4.03 10^6/uL (3.5-6.1); RED CELL DISTRIBUTION WIDTH 14.6 % (11.5-14.5)
[2019-01-05 06:35] LABS: LDL CHOLESTEROL 113 mg/dL (0-129)
[2019-01-05 07:16] LABS: ALB/GLOB RATIO 1.2 (1.1-1.8); ALBUMIN 3.8 g/dL (3.0-4.8); ALT/SGPT 7 U/L (7-56); AST/SGOT 19 U/L (17-59); BLOOD UREA NITROGEN 24 mg/dL (7-21); CALCIUM 8.6 mg/dL (8.4-10.5); GFR NON-AFRICAN AMERICAN > 60; HDL CHOLESTEROL 30 mg/dL (29-60)
[2019-01-05] MEDS ORDERED: Magnesium Sulfate 2 gm/50 ml 2 GM/50 ML BAG IVPB ONE (08:30)
[2019-01-05] MEDS: Insulin Reg-LOW-Coverage SC SCH ×4 (09:52→22:40)
[2019-01-05] MEDS ORDERED: Metoprolol Succinate 25 mg XL Tab PO SCH (10:00)
[2019-01-05] MEDS: Enoxaparin 30 mg Syringe SC SCH (10:00)
[2019-01-05] MEDS: Magnesium Oxide 400 mg Tab UD PO SCH ×2 (10:01→17:24)
[2019-01-05] MEDS ORDERED: Metoprolol Succinate 25 mg XL Tab PO ONE (13:00)
--- NOTE | 2019-01-05 13:03 | PN ---
DATE: 01/05/2019 REASON FOR CONSULTATION AND FOLLOW UP: Followup hypotension, dizziness, shortness of breath, coronary artery disease, CABG, history of stent in the past. SUBJECTIVE: The patient denies any chest pain, shortness of breath, or any palpitation. He feels a lot better. Slept for after long time very well. Currently on Primacor, Levophed is discontinued, IV fluid is discontinued. Denies any chest pain, shortness of breath, or any palpitation. OBJECTIVE GENERAL: Not in apparent distress. VITAL SIGNS: As follows; temperature afebrile, heart rate 74, and blood pressure 137/50. HEENT: PERRLA. Extraocular muscles intact. NECK: Supple. No carotid bruit. No thyromegaly. CHEST: Clear to auscultation. HEART: S1 and S2 regular. ABDOMEN: Soft. EXTREMITIES: Clubbing and cyanosis, negative. LABORATORY DATA: WBC 8, hemoglobin 11.5, hematocrit 36.0 and platelet count 292. Chemistry shows sodium 144, potassium 4, chloride 103, carbon dioxide 28, anion gap of 13, BUN 24 and creatinine 1.0. TSH 0.66, total protein 7.1, albumin 3.8 and albumin-globulin ratio 1.2. Triglyceride 195, LDL 113, HDL 30 and total cholesterol 181. IMPRESSION: A 68-year-old male very noncompliant recently came from [place] with complaint of shortness of breath. The patient had history of coronary artery disease, status post coronary artery bypass graft, recently cardiac catheterization in 10/23/2018, patent left internal mammary artery, other grafts occluded. The patient was sent to the [facility] with Dr. Lomeli, cardiothoracic surgeon for reevaluation for redo surgery and CT angio, but the patient lost followup and went to [place]. Came in here with heart failure as well as hypotension possibly secondary to over diuresed, because the patient was recently increased diuretic 80 mg twice. Yesterday fluid challenged was given to the patient, improved. Initially, the patient may required little bit dose of Levophed, now the patient off Levophed, feels lot better. RECOMMENDATIONS: We will discontinued Primacor, start Lasix, metoprolol resumed and start lisinopril. Monitor closely and transfer to [facility]. Supplement magnesium. If stable and cane be discharged home. Lisinopril was started for today, but it is probably held by resident because of low blood pressure yesterday, we will resume today. Thank you Dr. Dick for providing an opportunity in taking care of the patient, Enrique Said. Tammy Simental MD
[2019-01-05] MEDS: Nitroglycerin 2% Ointment Foilpak UD TOP SCH ×2 (17:49→22:38)
[2019-01-05 18:20] VITALS: O2SAT 97
--- NOTE | 2019-01-06 00:02 | PN ---
DATE: 01/05/2019 SUBJECTIVE: The patient is a 68-year-old male who was in ICU, doing well. Still has shortness of breath at times. No chest pain. No nausea or vomiting. Eating and tolerating. PHYSICAL EXAMINATION: VITAL SIGNS: He is afebrile, pulse 78, respirations 18, and blood pressure 133/54. LUNGS: Bilateral fair airflow. No rhonchi or crackles. HEART: S1 and S2 audible. ABDOMEN: Soft, obese, nontender. No rebound. No guarding. NEUROLOGIC: The patient is awake, alert, oriented, communicative. LABORATORY EXAMINATION: WBC 8, hemoglobin 11.5, hematocrit 36, and platelets 292. Chemistry: Blood sugar is 132, sodium 140, potassium 4, chloride 103, CO2 of 29, BUN 24, creatinine 1, and blood sugar 149. Blood cultures are negative. ASSESSMENT AND PLAN: 1. Congestive heart failure exacerbation. 2. Hypertension that is improved. 3. Coronary artery disease, status post open heart surgery a couple of years ago. Recently had a cardiac catheterization and was found to have patent left internal mammary artery, and all other grafts occluded, so the patient was referred to [facility] with Dr. Lomeli for evaluation, but the patient states his brother was sick and with one month interval because of heart attack, so he had to go there. He could not follow with the doctor. The patient was started on Primacor drip. He was given diuretics and beta-will. He has been transferred to Telemetry and encouraged ambulation. If he remains stable, we will discharge him in the morning. Beto Dick MD
[2019-01-06 00:52] VITALS: RESP 19; TEMP 97.8
[2019-01-06 08:19] LABS: BASO # 0.03 K/mm3 (0.0-2.0); BASO % 0.3 % (0.0-3.0); EOS # 0.4 (0.0-0.7); EOS % 4.1 % (1.5-5.0); HEMOGLOBIN 13.1 g/dL (14.0-18.0); LYMPH # 1.4 (1.2-3.4); LYMPH % 15.3 % (22.0-35.0); MEAN CELL VOLUME 89.1 fl (80.0-105.0); MEAN CORPUSCULAR HEMOGLOBIN 28.7 pg (25.0-35.0); MEAN CORPUSCULAR HGB CONC 32.2 g/dl (31.0-37.0); MEAN PLATELET VOLUME 9.7 fl (7.0-11.0); MONO # 0.9 (0.1-0.6); MONO % 9.5 % (1.0-6.0); RBC 4.57 10^6/uL (3.5-6.1); RED CELL DISTRIBUTION WIDTH 14.4 % (11.5-14.5)
[2019-01-06 08:41] LABS: ALB/GLOB RATIO 1.2 (1.1-1.8); ALBUMIN 4.4 g/dL (3.0-4.8); ALT/SGPT 14 U/L (7-56); AST/SGOT 26 U/L (17-59); BLOOD UREA NITROGEN 18 mg/dL (7-21); CALCIUM 9.5 mg/dL (8.4-10.5); GFR NON-AFRICAN AMERICAN > 60
[2019-01-06] MEDS: Insulin Reg-LOW-Coverage SC SCH ×2 (08:45→12:33)
[2019-01-06] MEDS: Enoxaparin 30 mg Syringe SC SCH (09:42)
[2019-01-06 09:45] VITALS: BP 118/65; PULSE 82
--- NOTE | 2019-01-06 17:38 | DS ---
HISTORY OF PRESENT ILLNESS: The patient is a 68-year-old, came to emergency room with increasing shortness of breath and chest discomfort. The patient was admitted in ICU, he was given Levophed, he was given IV fluid, started to do well. Serial cardiac enzymes were done, negative for acute DC; however, he was found to be in congestive heart failure, he was diuresed, doing well, seen and examined this morning. He is ready to go home. PHYSICAL EXAMINATION: VITAL SIGNS: He is afebrile. Pulse 82, respirations 18, blood pressure 118/65. LUNGS: Bilateral fair airflow. No rhonchi or crackle. HEART: S1, S2 audible. ABDOMEN: Soft, very obese, nontender. No rebound. No guarding. NEUROLOGIC: The patient is awake and alert, able to communicate. LABORATORY DATA: WBC 9.0, hemoglobin 13, hematocrit 40, platelets 345. Chemistry; sodium 137, potassium 4.6, chloride 98, CO2 of 31, BUN 18, creatinine 0.7, blood sugar 237. Blood cultures and urine cultures are negative. I had CT scan of the chest done on 01/04/2019 that was negative for pulmonary embolism. ASSESSMENT: 1. Status post congestive heart failure, acute on chronic, systolic. 2. Hypotension, but that has improved. 3. Coronary artery disease, status post open heart surgery many, many years ago. Had recent CAT shows occlusion of grafted arteries. 4. Morbid obesity. 5. Hypertension. 6. Hyperlipidemia. 7. Cardiomyopathy. PLAN: The patient is being discharged home today. He is advised to contact Dr. Lomeli's office for evaluation who is cardiothoracic surgeon for possible open heart surgery and the patient have all the contact and phone number and he is advised to continue his usual medication at home that include Brilinta, Flomax, Ranexa, Singulair, metoprolol, metformin, Victoza, isosorbide, Lasix, enalapril, and atorvastatin. Beto Dick MD
== END 2019-01-06 13:55 | disposition home or self-care (01) | DRG 871 ==
LOC: ED 10:29 → ERH 13:28 → ICU 15:42 → 2RSO 01-05 15:48
PROVIDERS: ADMIT Internal Medicine; ATTEND Internal Medicine
DX: R57.1 Hypovolemic shock (principal); I50.23 Acute on chronic systolic (congestive) heart failure; Z68.41 Body mass index [BMI] 40.0-44.9, adult; I25.810 Atherosclerosis of coronary artery bypass graft(s) without angina pectoris; I42.9 Cardiomyopathy, unspecified; R57.0 Cardiogenic shock; J44.9 Chronic obstructive pulmonary disease, unspecified; E11.9 Type 2 diabetes mellitus without complications; I11.0 Hypertensive heart disease with heart failure; E66.01 Morbid (severe) obesity due to excess calories; N40.0 Benign prostatic hyperplasia without lower urinary tract symptoms; I71.4 Abdominal aortic aneurysm, without rupture; M54.9 Dorsalgia, unspecified; G89.29 Other chronic pain; F17.200 Nicotine dependence, unspecified, uncomplicated; Z91.14 Patient's other noncompliance with medication regimen; Z91.19 Patient's noncompliance with other medical treatment and regimen; Z86.73 Personal history of transient ischemic attack (TIA), and cerebral infarction without residual deficits; E78.5 Hyperlipidemia, unspecified; G47.30 Sleep apnea, unspecified; H91.90 Unspecified hearing loss, unspecified ear; I25.2 Old myocardial infarction; I45.81 Long QT syndrome; I65.29 Occlusion and stenosis of unspecified carotid artery; Z79.02 Long term (current) use of antithrombotics/antiplatelets; Z79.4 Long term (current) use of insulin; Z79.82 Long term (current) use of aspirin; Z79.899 Other long term (current) drug therapy; Z82.49 Family history of ischemic heart disease and other diseases of the circulatory system; Z86.79 Personal history of other diseases of the circulatory system; Z87.11 Personal history of peptic ulcer disease; Z91.81 History of falling; Z95.5 Presence of coronary angioplasty implant and graft; Z95.1 Presence of aortocoronary bypass graft; I08.3 Combined rheumatic disorders of mitral, aortic and tricuspid valves

== ENCOUNTER 2019-03-22 13:26 | Observation (INO) | payer MEDICARE, MEDICAID ==
[2019-03-22 13:33] VITALS: BMI 39.1
[2019-03-22] MEDS ORDERED: Sodium Chloride 0.9% 500 ML IV STA (14:12)
[2019-03-22 15:06] LABS: ALB/GLOB RATIO 1.2 (1.1-1.8); ALBUMIN 4.3 g/dL (3.0-4.8); ALT/SGPT 25 U/L (7-56); AST/SGOT 31 U/L (17-59); BLOOD UREA NITROGEN 24 mg/dL (7-21); CALCIUM 9.2 mg/dL (8.4-10.5); GFR NON-AFRICAN AMERICAN > 60; LIPASE 144 U/L (23-300)
[2019-03-22 15:07] LABS: BASO # 0.02 K/mm3 (0.0-2.0); BASO % 0.2 % (0.0-3.0); EOS # 0.2 (0.0-0.7); EOS % 2.1 % (1.5-5.0); HEMOGLOBIN 12.4 g/dL (14.0-18.0); LYMPH # 1.7 (1.2-3.4); LYMPH % 15.3 % (22.0-35.0); MEAN CELL VOLUME 91.2 fl (80.0-105.0); MEAN CORPUSCULAR HEMOGLOBIN 30.3 pg (25.0-35.0); MEAN CORPUSCULAR HGB CONC 33.2 g/dl (31.0-37.0); MEAN PLATELET VOLUME 9.6 fl (7.0-11.0); MONO # 0.8 (0.1-0.6); MONO % 7.3 % (1.0-6.0); RBC 4.09 10^6/uL (3.5-6.1); RED CELL DISTRIBUTION WIDTH 13.8 % (11.5-14.5); WHITE BLOOD COUNT 10.8 10^3/uL (4.5-11.0)
[2019-03-22 15:07] LABS: VENOUS BLOOD GAS BASE EXCESS 4.9 mmol/L (0.0-2.0); VENOUS BLOOD GAS PO2 40 mm/Hg (30-55); VENOUS BLOOD PH 7.46 (7.32-7.43)
[2019-03-22 15:14] LABS: INR 1.15; PARTIAL THROMBOPLASTIN TIME 30.9 Seconds (26.9-38.3); PROTHROMBIN TIME 12.8 SECONDS (9.4-12.5)
[2019-03-22 15:16] LABS: B-TYPE NATRIURETIC PEPTIDE 502 pg/mL (0-450)
[2019-03-22 15:18] LABS: TROPONIN I < 0.01 ng/mL
--- NOTE | 2019-03-22 15:40 | CT ---
Date of service: 03/22/2019 PROCEDURE: CT HEAD WITHOUT CONTRAST. HISTORY: dizziness x 3 days COMPARISON: None available. TECHNIQUE: Axial computed tomography images were obtained through the head/brain without intravenous contrast. Radiation dose: Total exam DLP = 1039.94 mGy-cm. This CT exam was performed using one or more of the following dose reduction techniques: Automated exposure control, adjustment of the mA and/or kV according to patient size, and/or use of iterative reconstruction technique. FINDINGS: HEMORRHAGE: No intracranial hemorrhage. BRAIN: No mass effect or edema. No atrophy or chronic microvascular ischemic changes. VENTRICLES: Unremarkable. No hydrocephalus. CALVARIUM: Unremarkable. PARANASAL SINUSES: Unremarkable as visualized. No significant inflammatory changes. MASTOID AIR CELLS: Unremarkable as visualized. No inflammatory changes. OTHER FINDINGS: None. IMPRESSION: No acute findings
--- NOTE | 2019-03-22 16:04 | RAD ---
Date of service: 03/22/2019 HISTORY: dizziness COMPARISON: 01/04/2019 TECHNIQUE: 1 view obtained. FINDINGS: LUNGS: No active pulmonary disease. PLEURA: No significant pleural effusion identified, no pneumothorax apparent. CARDIOVASCULAR: No aortic atherosclerotic calcification present. Moderate cardiomegaly. No pulmonary vascular congestion. OSSEOUS STRUCTURES: Sternal wires VISUALIZED UPPER ABDOMEN: Normal. OTHER FINDINGS: None. IMPRESSION: No active disease.
--- NOTE | 2019-03-22 16:19 | ED PDOC ---
Arrival/HPI - General Chief Complaint: Dizziness/Lightheaded Time Seen by Provider: 03/22/19 14:10 Historian: Patient - History of Present Illness Narrative History of Present Illness (Text): 03/22/19 16:44 68yr old male with triple vessel disease, CHF, DM with dizziness x 3 days. pt was seen by PMD and sent to the ER for evaluation for dizziness. Patient states he has been feeling fatigued and dizzy for the past 3 days. He denies chest pain or shortness of breath. He denies fevers or chills. He denies urinary symptoms. He denies abdominal pain. Patient denies vomiting or diarrhea. Patient denies blurred vision. Past Medical History - Provider Review Nursing Documentation Reviewed: Yes - Travel History Have you recently traveled outside [place] w/in the past 3 mons?: No - Infectious Disease Hx of Infectious Diseases: None - Tetanus Immunization Tetanus Immunization: Unknown - Cardiac Hx Cardiac Disorders: Yes (cp, mi 1998, aaa, cad) Hx Congestive Heart Failure: Yes Hx Hypertension: Yes - Pulmonary Hx Chronic Obstructive Pulmonary Disease (COPD): Yes - Neurological HX Cerebrovascular Accident: Yes (2017) - HEENT Hx HEENT Disorder: Yes Hx Cataracts: Yes (Bilateral Cataract surgery) Hx Deafness: Yes (L ear sx, piece of metal) Hx Glaucoma: Yes Other/Comment: LASER SURGERY FOR GLAUCOMA. SURGERY FOR TRAUMA TO LEFT EAR, work related, was working and metal flew into eardrum, hearing impaired left ear - Renal Hx Renal Disorder: No - Endocrine/Metabolic Hx Diabetes Mellitus Type 1: Yes Hx Diabetes Mellitus Type 2: Yes - Hematological/Oncological Hx Blood Disorders: No - Integumentary Hx Dermatological Disorder: Yes Other/Comment: lle scaley dry skin dry scabs +1 edema, dry thick toenails both feet, rle +1 edema multiple skin discolorations, +1 pitting edema both feet - Musculoskeletal/Rheumatological Hx Arthritis: Yes (r knee pain) - Gastrointestinal Hx Gastrointestinal Disorders: Yes (upper gi bleed, obese) Other/Comment: HX: 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 - Genitourinary/Gynecological Hx Genitourinary Disorders: Yes Hx Prostate Problems: Yes (BPH) Other/Comment: Takes Flomax - Psychiatric Hx Psychophysiologic Disorder: No Hx Anxiety: Yes Hx Depression: Yes Hx Substance Use: No - Surgical History Hx Cataract Extraction: Yes Hx Cardiac Catheterization: Yes Hx Coronary Artery Bypass Graft: Yes (x2) Hx Coronary Stent: Yes Hx Eye Surgery: Yes (CHRIS) Hx Musculoskeletal Surgery: Yes Hx Open Heart Surgery: Yes Hx Open Reduction Internal Fixation: Yes (RIGHT LEG) Hx Orthopedic Surgery: Yes (RIGHT KNEE TO LOWER LEG WITH PENNY PLACED AFTER FX.) Other/Comment: pt fell about 6 yrs ago orif right knee to lower leg with penny at [facility] - Anesthesia Hx Anesthesia: Yes Hx Anesthesia Reactions: No Hx Malignant Hyperthermia: No - Suicidal Assessment Feels Threatened In Home Enviroment: No Family/Social History - Physician Review Nursing Documentation Reviewed: Yes Family/Social History: Unknown Family HX Smoking Status: Former Smoker Hx Alcohol Use: No Hx Substance Use: No Allergies/Home Meds Allergies/Adverse Reactions: Allergies No Known Allergies Allergy (Verified 01/18/19 07:51) Home Medications: Home Meds Medication Instructions Recorded Confirmed Ammonium Lactate 12% [Lac-Hydrin 12 % TP BID 02/28/18 03/22/19 12% Cream (140 g)] Ketoconazole 2% Cr [Nizoral] 15 applic TOP BID 02/28/18 03/22/19 Furosemide [Lasix] 40 mg PO BID 10/25/18 03/22/19 Atorvastatin [Lipitor] 80 mg PO DIN 11/02/18 03/22/19 Dutasteride [Avodart] 0.5 mg PO DAILY 11/02/18 03/22/19 Isosorbide Mononitrate [Isosorbide 120 mg PO DAILY 11/02/18 03/22/19 Mononitrate ER] Potassium Chloride [Klor-Con M10] 10 meq PO BID 11/02/18 03/22/19 Promethazine HCl/Codeine 5 ml PO PRN PRN 11/02/18 03/22/19 [Prometh-Codein 6.25-10 mg/5 ml] Umeclidinium Stitzer [Incruse 1 puff IH DAILY 11/02/18 03/22/19 Ellipta] Vit B Complx/Folic AC/C/Biotin 1 each PO DAILY 11/02/18 03/22/19 [Folika-T Tablet] Albuterol Sulfate [Ventolin Hfa] 2 puff IH QID PRN 01/04/19 03/22/19 Albuterol/Ipratropium [Duoneb 3 3 ml IH QID 03/22/19 03/22/19 MG/3 Ml-0.5 MG/3 Ml 3 Ml] Azelastine HCl 137 mcg NS DAILY 03/22/19 03/22/19 Bepotastine Besilate [Bepreve] 1 drop OU BID 03/22/19 03/22/19 Cholecalciferol [Vitamin D] 5,000 iu PO DAILY 03/22/19 03/22/19 Liraglutide [Victoza] 1.8 mg SC DAILY 03/22/19 03/22/19 Lisinopril [Zestril] 5 mg PO DAILY 03/22/19 03/22/19 Nitroglycerin [Nitrostat] 0.4 mg SL PRN 03/22/19 03/22/19 Ranolazine [Ranexa] 1,000 mg PO BID 03/22/19 03/22/19 Varenicline Tartrate [Chantix] 1 mg PO BID 03/22/19 03/22/19 Review of Systems - Review of Systems Constitutional: Fatigue. absent: Fevers ENT: absent: Sore Throat, Sinus Congestion Respiratory: absent: SOB, Cough Cardiovascular: absent: Chest Pain, Palpitations Gastrointestinal: absent: Abdominal Pain, Constipation, Diarrhea, Nausea, Vomiting Genitourinary Male: absent: Dysuria, Frequency, Hematuria Musculoskeletal: absent: Arthralgias, Back Pain, Neck Pain Skin: absent: Rash, Pruritis Neurological: Dizziness. absent: Headache Psychiatric: absent: Anxiety, Depression Physical Exam Vital Signs Reviewed: Yes Vital Signs Temp Pulse Resp BP Pulse Ox 03/22/19 16:08 80 18 96/50 L 100 03/22/19 15:45 84 18 86/53 L 100 03/22/19 15:30 75 18 79/43 L 100 03/22/19 14:40 95 H 18 117/58 L 98 03/22/19 13:32 97.5 F L 99 H 18 90/53 L 99 Temperature: Afebrile Blood Pressure: Hypotensive Pulse: Tachycardic Respiratory Rate: Normal Appearance: Positive for: Well-Appearing, Non-Toxic, Comfortable Pain Distress: None Mental Status: Positive for: Alert and Oriented X 3 Finger Stick Blood Glucose: 88 - Systems Exam Head: Present: Atraumatic Conjunctiva: Present: Normal Ears: Present: Normal, NORMAL TM Mouth: Present: Moist Mucous Membranes Neck: Present: Normal Range of Motion Respiratory/Chest: Present: Clear to Auscultation, Good Air Exchange. No: Respiratory Distress, Accessory Muscle Use Cardiovascular: Present: Regular Rate and Rhythm, Normal S1, S2. No: Murmurs Abdomen: No: Tenderness, Distention, Peritoneal Signs, Rebound, Guarding Back: Present: Normal Inspection. No: Midline Tenderness, Paraspinal Tenderness Upper Extremity: Present: Normal Inspection, Normal ROM Lower Extremity: Present: Normal Inspection, Normal ROM Neurological: Present: GCS=15, Speech Normal Skin: Present: Warm, Dry, Normal Color. No: Rashes Psychiatric: Present: Alert, Oriented x 3 Medical Decision Making ED Course and Treatment: 68yr old male with dizziness and near syncope. pt slightly hypotensive on initial vitals. pt seen and evaluated by dr. RODRIGUEZ cbc; wnl cmp; wnl trop;w nl [id number] cxr; no infiltrate head ct; FINDINGS: HEMORRHAGE: No intracranial hemorrhage. BRAIN: No mass effect or edema. No atrophy or chronic microvascular ischemic changes. VENTRICLES: Unremarkable. No hydrocephalus. CALVARIUM: Unremarkable. PARANASAL SINUSES: Unremarkable as visualized. No significant inflammatory changes. MASTOID AIR CELLS: Unremarkable as visualized. No inflammatory changes. OTHER FINDINGS: None. IMPRESSION: No acute findings pt given 500cc bolus of fluids: 03/22/19 16:19 case was discussed with dr. hull in depth; she would like ICU consult due to patients hypotension and extensive cardiac history, CHF limiting IV Fluids. case discussed with the newspaper columnist who will evaluate the patient at bedside. 03/22/19 16:31 pt was seen by dr. Alvarez (newspaper columnist) pt does not meet criteria for ICU admission; will admit to tele for near syncope impression: dizziness, near syncope admit tele Reassessment Condition: Re-examined, Improved - Lab Interpretations Lab Results: pO2 40 mm/Hg (30-55) 03/22/19 15:00 VBG pH 7.46 (7.32-7.43) H 03/22/19 15:00 VBG pCO2 41.0 (40-60) 03/22/19 15:00 VBG HCO3 29.2 mmol/l (21-28) H 03/22/19 15:00 VBG Total CO2 30.5 mmol.L (22-28) H 03/22/19 15:00 VBG O2 Sat (Calc) 79.8 % (40-65) H 03/22/19 15:00 VBG Base Excess 4.9 mmol/L (0.0-2.0) H 03/22/19 15:00 VBG Potassium 3.9 mmol/L (3.6-5.2) 03/22/19 15:00 Sodium 135.0 mmol/L (132-148) 03/22/19 15:00 Chloride 101.0 mmol/L (98-107) 03/22/19 15:00 Glucose 72 mg/dl (75-110) L 03/22/19 15:00 Lactate 2.1 mmol/L (0.7-2.1) 03/22/19 15:00 FiO2 21.0 % 03/22/19 15:00 PT 12.8 SECONDS (9.4-12.5) H 03/22/19 14:50 INR 1.15 03/22/19 14:50 APTT 30.9 Seconds (26.9-38.3) 03/22/19 14:50 Troponin I < 0.01 ng/mL 03/22/19 14:50 NT-Pro-B Natriuret Pep 502 pg/mL (0-450) H 03/22/19 14:50 Total Bilirubin 0.5 mg/dL (0.2-1.3) 03/22/19 14:50 AST 31 U/L (17-59) 03/22/19 14:50 ALT 25 U/L (7-56) 03/22/19 14:50 Alkaline Phosphatase 82 U/L (38-126) 03/22/19 14:50 Total Protein 7.9 g/dL (5.8-8.3) 03/22/19 14:50 Albumin 4.3 g/dL (3.0-4.8) 03/22/19 14:50 Globulin 3.5 gm/dL 03/22/19 14:50 Albumin/Globulin Ratio 1.2 (1.1-1.8) 03/22/19 14:50 Lipase 144 U/L (23-300) 03/22/19 14:50 - RAD Interpretation Radiology Orders: 03/22/19 14:11 CHEST PORTABLE [RAD] Stat 03/22/19 14:36 HEAD W/O CONTRAST [CT] Stat - Medication Orders Current Medication Orders: Discontinued Medications Sodium Chloride (Sodium Chloride 0.9%) 500 mls @ 999 mls/hr IV .Q31M STA Stop: 03/22/19 14:42 Last Admin: 03/22/19 15:16 Dose: 999 mls/hr eMAR Start Stop Document 03/22/19 15:16 BB (Rec: 03/22/19 15:17 BB [id number]) Intravenous Solution Start Date 03/22/19 Start Time 15:17 Disposition/Present on Arrival - Present on Arrival Any Indicators Present on Arrival: Yes History of DVT/PE: No History of Uncontrolled Diabetes: Yes Urinary Catheter: No History of Decub. Ulcer: No History Surgical Site Infection Following: None - Disposition Have Diagnosis and Disposition been Completed?: Yes Diagnosis: Dizziness, Near syncope Disposition: HOSPITALIZED Disposition Time: 16:00 Patient Plan: Observation Condition: FAIR
--- NOTE | 2019-03-22 16:38 | CP.PCM.CON ---
<Artie Finch - Last Filed: 03/22/19 16:33> History of Present Illness - History of Present Illness History of Present Illness: Artie Finch, PGY-1 Critical Care Consult Note Mr. Nunez is a 68 y/o M with PMHx of CAD x 6 stents s/p CABG 1998 with BOLANOS to LAD and SVG to RCA grafts, AAA, carotid stenosis s/p endarterectomy, HTN, DM, HLD, COPD, BPH presents to the ED with complaints of chronic SOB with associated dizziness. Pt decided to come to ED today because patient feels unsteady as if h e is spinning. Pt experiences SOB at rest for as long as he can remember. Patient describes himself as an extremely heavy smoker. Pt recently returned from [place] 1 month ago, however reports he has been having shortness of breath for several months prior. He reports he has been having associated cough and leg swelling for a few weeks, but denies any recent symptoms of fevers, chills, headache, chest pain, palpitations, vomiting, constipation, diarrhea, dysuria, hematuria, hematochezia, recent infection. Patient does not remember all of his medications, so a list was procured from previous documentation. Per record, patient was expected to followup from previous admission in 01/23 with cardiot horacic surgeon. PMH: CAD x 6 stents s/p CABG with BOLANOS to LAD and SVG to RCA grafts, AAA, carotid stenosis s/p endarterectomy, HTN, DM, HLD, COPD, BPH All: NKDA PSH: CABG SH: 1/2 pack smoker x 20 years FH: Father: CAD, VT, DM Meds: Brilinta 90mg, Amaryl 4mg, asprin 81mg, plavix 75mg, metprolol 25mg, victoza, flomax, metformin 1000mg, isosorbide 60mg qd, nexium 40mg, enalapril 2.5mg Review of Systems - Review of Systems Review of Systems: 12 point ROS completed and negative except as described in HPI. Past Patient History - Infectious Disease Hx of Infectious Diseases: None - Tetanus Immunizations Tetanus Immunization: Unknown - Past Medical History & Family History Past Medical History?: Yes - Past Social History Smoking Status: Former Smoker - CARDIAC Hx Cardiac Disorders: Yes (cp, mi 1998, aaa, cad) Hx Congestive Heart Failure: Yes Hx Hypertension: Yes - PULMONARY Hx Chronic Obstructive Pulmonary Disease (COPD): Yes - NEUROLOGICAL HX Cerebrovascular Accident: Yes (2018) - HEENT Hx HEENT Problems: Yes Hx Cataracts: Yes (Bilateral Cataract surgery) Hx Deafness: Yes (L ear sx, piece of metal) Hx Glaucoma: Yes Other/Comment: LASER SURGERY FOR GLAUCOMA. SURGERY FOR TRAUMA TO LEFT EAR, work related, was working and metal flew into eardrum, hearing impaired left ear - RENAL Hx Chronic Kidney Disease: No - ENDOCRINE/METABOLIC Hx Diabetes Mellitus Type 1: Yes Hx Diabetes Mellitus Type 2: Yes - HEMATOLOGICAL/ONCOLOGICAL Hx Blood Disorders: No - INTEGUMENTARY Hx Dermatological Problems: Yes Other/Comment: lle scaley dry skin dry scabs +1 edema, dry thick toenails both feet, rle +1 edema multiple skin discolorations, +1 pitting edema both feet - MUSCULOSKELETAL/RHEUMATOLOGICAL Hx Arthritis: Yes (r knee pain) - GASTROINTESTINAL Hx Gastrointestinal Disorders: Yes (upper gi bleed, obese) Other/Comment: HX: 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 - GENITOURINARY/GYNECOLOGICAL Hx Genitourinary Disorders: Yes Hx Prostate Problems: Yes (BPH) Other/Comment: Takes Flomax - PSYCHIATRIC Hx Psychophysiologic Disorder: No Hx Anxiety: Yes Hx Depression: Yes Hx Substance Use: No - SURGICAL HISTORY Hx Cataract Extraction: Yes Hx Cardiac Catheterization: Yes Hx Coronary Artery Bypass Graft: Yes (x2) Hx Coronary Stent: Yes Hx Eye Surgery: Yes ([facility]) Hx Musculoskeletal Surgery: Yes Hx Open Heart Surgery: Yes Hx Open Reduction Internal Fixation: Yes (RIGHT LEG) Hx Orthopedic Surgery: Yes (RIGHT KNEE TO LOWER LEG WITH PENNY PLACED AFTER FX.) Other/Comment: pt fell about 6 yrs ago orif right knee to lower leg with penny at [facility] [place] - ANESTHESIA Hx Anesthesia: Yes Hx Anesthesia Reactions: No Hx Malignant Hyperthermia: No Meds Allergies/Adverse Reactions: Allergies Allergy/AdvReac Type Severity Reaction Status Date / Time No Known Allergies Allergy Verified 01/18/19 07:51 Physical Exam - Additional Findings Additional findings: - Constitutional Appears: Well, Non-toxic, No Acute Distress - Head Exam Head Exam: ATRAUMATIC, NORMAL INSPECTION - Eye Exam Eye Exam: EOMI, Normal appearance - ENT Exam ENT Exam: Mucous Membranes Moist, Normal Exam, NC 2 L - Neck Exam Neck exam: Positive for: Normal Inspection Additional comments: no JVD, no hepatojugular reflex - Respiratory Exam Respiratory Exam: CTA B/L, NORMAL BREATHING PATTERN - Cardiovascular Exam Cardiovascular Exam: REGULAR RHYTHM, +S1, +S2. absent: Gallop Well-healed upper chest vertical midline scar s/p CABG - GI/Abdominal Exam GI & Abdominal Exam: Normal Bowel Sounds, Soft, Tenderness (b/l lower quadrant). absent: Firm, Guarding - Extremities Exam Extremities exam: Negative for: calf tenderness, normal inspection, pedal edema -tender to palpation chronic vascular changes to lower extremities - Back Exam Back exam: NORMAL INSPECTION - Neurological Exam Neurological exam: Alert, Oriented x3 - Psychiatric Exam Psychiatric exam: Normal Affect, Normal Mood - Skin Skin Exam: Dry, Intact, Warm Results - Vital Signs Recent Vital Signs: Last Vital Signs Temp 97.5 F L 03/22/19 13:32 Pulse 85 03/22/19 16:27 Resp 18 03/22/19 16:27 BP 111/59 L 03/22/19 16:27 Pulse Ox 99 03/22/19 16:27 - Labs Result Diagrams: 03/22/19 14:50 03/22/19 14:50 Labs: Laboratory Results - last 24 hr 03/22/19 03/22/19 03/22/19 13:37 14:50 14:50 WBC RBC Hgb Hct MCV MCH MCHC RDW Plt Count MPV Neut % (Auto) Lymph % (Auto) [place] % (Auto) Eos % (Auto) Baso % (Auto) Lymph # (Auto) [place] # (Auto) Eos # (Auto) Baso # (Auto) Absolute Neuts (auto) PT 12.8 H INR 1.15 APTT 30.9 pO2 VBG pH VBG pCO2 VBG HCO3 VBG Total CO2 VBG O2 Sat (Calc) VBG Base Excess VBG Potassium Glucose Lactate FiO2 Sodium 137 Potassium 4.1 Chloride 98 Carbon Dioxide 29 Anion Gap 15 BUN 24 H Creatinine 1.1 Est GFR ( Amer) > 60 Est GFR (Non-Af Amer) > 60 POC Glucose (mg/dL) 88 Random Glucose 79 Calcium 9.2 Total Bilirubin 0.5 AST 31 ALT 25 Alkaline Phosphatase 82 Lactate Dehydrogenase 411 Total Creatine Kinase 45 Troponin I < 0.01 NT-Pro-B Natriuret Pep 502 H Total Protein 7.9 Albumin 4.3 Globulin 3.5 Albumin/Globulin Ratio 1.2 Lipase 144 Venous Blood Potassium 03/22/19 03/22/19 14:50 15:00 WBC 10.8 RBC 4.09 Hgb 12.4 L Hct 37.3 L MCV 91.2 MCH 30.3 MCHC 33.2 RDW 13.8 Plt Count 372 MPV 9.6 Neut % (Auto) 75.1 H Lymph % (Auto) 15.3 L [place] % (Auto) 7.3 H Eos % (Auto) 2.1 Baso % (Auto) 0.2 Lymph # (Auto) 1.7 [place] # (Auto) 0.8 H Eos # (Auto) 0.2 Baso # (Auto) 0.02 Absolute Neuts (auto) 8.11 H PT INR APTT pO2 40 VBG pH 7.46 H VBG pCO2 41.0 VBG HCO3 29.2 H VBG Total CO2 30.5 H VBG O2 Sat (Calc) 79.8 H VBG Base Excess 4.9 H VBG Potassium 3.9 Glucose 72 L Lactate 2.1 FiO2 21.0 Sodium 135.0 Potassium Chloride 101.0 Carbon Dioxide Anion Gap BUN Creatinine Est GFR ( Amer) Est GFR (Non-Af Amer) POC Glucose (mg/dL) Random Glucose Calcium Total Bilirubin AST ALT Alkaline Phosphatase Lactate Dehydrogenase Total Creatine Kinase Troponin I NT-Pro-B Natriuret Pep Total Protein Albumin Globulin Albumin/Globulin Ratio Lipase Venous Blood Potassium 3.9 Assessment & Plan - Assessment and Plan (Free Text) Assessment: 68 M with PMHx of CAD x 6 stents s/p CABG with BOLANOS to LAD and SVG to RCA grafts, AAA, carotid stenosis s/p endarterectomy, HTN, DM, HLD, COPD, for which ICU was consulted for hemodynamic instability. In the ED, Mr. Nunez was found to be afebrile, hemodynamically stable, normotensive with BP of 111/59, HR 89, saturating 100% on 2L NC. Lactate of 2.1 and BUN 24 points to likely dehydration, as patient divulged poor oral intake. ProBNP was not clinically significant at 502, unlikely to be in acute heart failure exacerbation. Patient was conveying his full medical history without becoming short of breath, tachypneic, using accessory muscles, or catching his breath. Patient was sitting up in chair without respiratory compromise. Further workup is warranted regarding etiology of dizziness, possibly with gentle fluid resuscitation. An MRI head may be warranted if no contraindications are present. Patient is not currently a candidate for ICU. Please reconsult as necessary. Patient seen, case reviewed and plan approved by Dr. Alvarez. Artie Finch, PGY-1 <Claudio Alvarez - Last Filed: 03/22/19 17:01> Results - Vital Signs Recent Vital Signs: Last Vital Signs Temp 97.5 F L 03/22/19 13:32 Pulse 85 03/22/19 16:27 Resp 18 03/22/19 16:27 BP 111/59 L 03/22/19 16:27 Pulse Ox 99 03/22/19 16:27 - Labs Result Diagrams: 03/22/19 14:50 03/22/19 14:50 Labs: Laboratory Results - last 24 hr 03/22/19 03/22/19 03/22/19 13:37 14:50 14:50 WBC RBC Hgb Hct MCV MCH MCHC RDW Plt Count MPV Neut % (Auto) Lymph % (Auto) [place] % (Auto) Eos % (Auto) Baso % (Auto) Lymph # (Auto) [place] # (Auto) Eos # (Auto) Baso # (Auto) Absolute Neuts (auto) PT 12.8 H INR 1.15 APTT 30.9 pO2 VBG pH VBG pCO2 VBG HCO3 VBG Total CO2 VBG O2 Sat (Calc) VBG Base Excess VBG Potassium Glucose Lactate FiO2 Sodium 137 Potassium 4.1 Chloride 98 Carbon Dioxide 29 Anion Gap 15 BUN 24 H Creatinine 1.1 Est GFR ( Amer) > 60 Est GFR (Non-Af Amer) > 60 POC Glucose (mg/dL) 88 Random Glucose 79 Calcium 9.2 Total Bilirubin 0.5 AST 31 ALT 25 Alkaline Phosphatase 82 Lactate Dehydrogenase 411 Total Creatine Kinase 45 Troponin I < 0.01 NT-Pro-B Natriuret Pep 502 H Total Protein 7.9 Albumin 4.3 Globulin 3.5 Albumin/Globulin Ratio 1.2 Lipase 144 Venous Blood Potassium 03/22/19 03/22/19 14:50 15:00 WBC 10.8 RBC 4.09 Hgb 12.4 L Hct 37.3 L MCV 91.2 MCH 30.3 MCHC 33.2 RDW 13.8 Plt Count 372 MPV 9.6 Neut % (Auto) 75.1 H Lymph % (Auto) 15.3 L [place] % (Auto) 7.3 H Eos % (Auto) 2.1 Baso % (Auto) 0.2 Lymph # (Auto) 1.7 [place] # (Auto) 0.8 H Eos # (Auto) 0.2 Baso # (Auto) 0.02 Absolute Neuts (auto) 8.11 H PT INR APTT pO2 40 VBG pH 7.46 H VBG pCO2 41.0 VBG HCO3 29.2 H VBG Total CO2 30.5 H VBG O2 Sat (Calc) 79.8 H VBG Base Excess 4.9 H VBG Potassium 3.9 Glucose 72 L Lactate 2.1 FiO2 21.0 Sodium 135.0 Potassium Chloride 101.0 Carbon Dioxide Anion Gap BUN Creatinine Est GFR ( Amer) Est GFR (Non-Af Amer) POC Glucose (mg/dL) Random Glucose Calcium Total Bilirubin AST ALT Alkaline Phosphatase Lactate Dehydrogenase Total Creatine Kinase Troponin I NT-Pro-B Natriuret Pep Total Protein Albumin Globulin Albumin/Globulin Ratio Lipase Venous Blood Potassium 3.9 Assessment & Plan - Assessment and Plan (Free Text) Assessment: I saw and examined the patient on rounds with resident, agree with note with following additions/exceptions: Patient is 68yo male PMHx of CAD x 6 stents s/p CABG with BOLANOS to LAD and SVG to RCA grafts, AAA, carotid stenosis s/p endarterectomy, HTN, DM, HLD, COPD, presenting with dizziness, of unknown etiology. Last BP at bedside 111/59, HR 80s Afebrile, HD stable, comfortable in NAD, sitting in chair comfortably providing full history Would give IVF hydration MRI brain Neuro eval GI ppx DVT ppx Rest of care as per primary team Does note require ICU care at this time
[2019-03-22 19:53] LABS: VENOUS BLOOD GAS BASE EXCESS 4.6 mmol/L (0.0-2.0); VENOUS BLOOD GAS PO2 34 mm/Hg (30-55); VENOUS BLOOD PH 7.36 (7.32-7.43)
[2019-03-22] MEDS ORDERED: Potassium Chloride 10 mEq ER Tab PO ONE (20:45)
[2019-03-22] MEDS ORDERED: POTASSIUM CHLORIDE 10 MEQ PO SCH (20:45)
[2019-03-22] MEDS: Insulin Lispro (humaLOG) MEDIUM Coverage SC SCH (21:53)
[2019-03-22] MEDS: RANOLAZINE 1000 MG PO SCH (21:53)
[2019-03-22] MEDS ORDERED: Pneumococcal 23-Valent Vaccine IM ONE (22:04)
--- NOTE | 2019-03-23 00:44 | HP ---
DATE OF EXAM: 03/22/2019 HISTORY OF PRESENT ILLNESS: The patient is a 68-year-old, patient of Dr. Sj weber for him. He came to emergency room because of increasing dizziness and feeling lightheaded. The patient states he was seen by Dr. Nunn recently and had some adjustment done in his medication. His isosorbide was increased and so was Ranexa. The patient states since then he has not been feeling well. He denies any fevers or chills. No history of cough or congestion. No abdominal pain. No diarrhea. No hemoptysis. No hematemesis. . Recent multiple admission for shortness of breath, feeling weak, and lightheaded. He has been an active smoker for almost 20 years. PAST MEDICAL HISTORY: He has significant past medical history of: 1. Coronary artery disease, had open heart surgery in 1990, in which he had internal mammary to LAD and saphenous vein graft to RCA. He also has carotid stenosis, but he was recently had carotid endarterectomy done in [facility] last year. 2. Hypertension. 3. Noninsulin-dependent diabetes. 4. COPD. 5. BPH. ALLERGIES: HE IS NOT ALLERGIC TO ANY MEDICATION. MEDICATIONS AT HOME: He is on multivitamin, Chantix, Ellipta 1000 b.i.d., he is on Zestril 5 mg daily, Victoza 1.5 daily, isosorbide 120 daily, Lasix 40 mg twice a day, and Lipitor 80 mg daily. SOCIAL HISTORY: He lives alone and has a few friends around him. He still smokes here and there. FAMILY HISTORY: Significant for coronary artery disease. He recently lost brother because of heart attack. PHYSICAL EXAMINATION: GENERAL: He is sitting in chair, seems to be comfortable, and morbidly obese. VITAL SIGNS: He is afebrile, pulse 84, respirations 18 upon arrival, blood pressure 179/43 and at around 7 o'clock 106/55. LUNGS: Bilateral fair airflow, decreased at bases. HEART: S1 and S2 audible. ABDOMEN: Soft, obese, and nontender. No rebound. No guarding. NEUROLOGIC: The patient is awake and alert, able to communicate. LABORATORY DATA: WBC 10.8, hemoglobin 12.4, hematocrit 37.3, and platelet 372. PT 12.8. INR 1.15. Chemistry; sodium 137, potassium 4.1, chloride 98, CO2 of 29, BUN 24, and creatinine 1.1. Blood sugar 75. BNP 502. Troponin is 0.01. ASSESSMENT: 1. Dizziness probably secondary to hypotension, hence he recently had his medication dose increased. 2. Noninsulin-dependent diabetes. 3. Coronary artery disease. 4. History of hypertension. 5. Chronic obstructive pulmonary disease. 6. Active smoker. 7. Morbid obesity. PLAN: We will hold his IV diuretics. We will continue his usual medications and monitor blood sugar. has been consulted who is his comber setter as outpatient. We will monitor his troponin. Follow up his CBC and CMP in a.m. Beto Dick MD
[2019-03-23 05:18] LABS: VENOUS BLOOD GAS BASE EXCESS 3.7 mmol/L (0.0-2.0); VENOUS BLOOD GAS PO2 71 mm/Hg (30-55); VENOUS BLOOD PH 7.36 (7.32-7.43)
[2019-03-23 05:31] LABS: ALB/GLOB RATIO 1.2 (1.1-1.8); ALBUMIN 3.9 g/dL (3.0-4.8); ALT/SGPT 19 U/L (7-56); AST/SGOT 21 U/L (17-59); BLOOD UREA NITROGEN 33 mg/dL (7-21); CALCIUM 8.8 mg/dL (8.4-10.5); GFR NON-AFRICAN AMERICAN 47; TROPONIN I < 0.01 ng/mL
[2019-03-23 05:37] VITALS: O2SAT 97
[2019-03-23 05:46] LABS: PH,URINE 5.5 (4.7-8.0); URINE APPEARANCE CLEAR (CLEAR); URINE BILIRUBIN NEGATIVE (NEGATIVE); URINE BLOOD NEGATIVE (NEGATIVE); URINE COLOR YELLOW (YELLOW); URINE GLUCOSE (UA) NEGATIVE (NEGATIVE); URINE LEUKOCYTE ESTERASE NEGATIVE Leu/uL (NEGATIVE); URINE PROTEIN TRACE mg/dL (<30 mg/dL); URINE UROBILINOGEN 0.2 E.U./dL (<1 E.U./dL)
[2019-03-23 06:05] LABS: URINE AMORPHOUS SEDIMENT FEW /hpf; URINE FINE GRANULAR CAST 0 - 2 /hpf; URINE HYALINE CAST 0 - 2 /hpf; URINE RBC 0 - 2 /hpf (0-2); URINE WBC 0 - 2 /hpf (0-6)
[2019-03-23 06:06] LABS: URINE BACTERIA FEW /hpf
[2019-03-23] MEDS: Potassium Chloride 10 mEq ER Tab PO SCH ×2 (08:09→17:14)
[2019-03-23] MEDS: Insulin Lispro (humaLOG) MEDIUM Coverage SC SCH ×3 (08:10→17:13)
[2019-03-23] MEDS ORDERED: DUTASTERIDE 0.5 MG PO SCH (10:00)
[2019-03-23] MEDS: RANOLAZINE 1000 MG PO SCH ×2 (11:02→18:20)
--- NOTE | 2019-03-23 11:54 | CARD ---
APPROVED REPORT Date of service: 03/22/2019 EKG Measurement Heart [id number] <Conclusion> Normal sinus rhythm Prolonged QT Abnormal ECG
[2019-03-23 12:39] VITALS: TEMP 98.1
[2019-03-23 17:23] VITALS: BP 109/53; RESP 20
--- NOTE | 2019-03-23 17:36 | CP.PCM.CON ---
History of Present Illness - History of Present Illness History of Present Illness: Patient well known to Dr. Araujo presents with generalized weakness and diaainess: no palpitation, CP, fevers, chills, N/V or syncope. Known prior CABG Most [place] [facility] [place] Bolanos-LAD > Occluded SVG to RCA prior stented > occluded [place] RCA > Diffuse disease in LCX small caliber (Prior PCI 2018) additional: 4.1cm infrarenal follwed by Dr. araujo by serial imaging HTN: chronic stable DM: chronic stable Diastolic dysfunction: advanced with elevated filling pressures: stable COPD/Emphysema: chronic labile Neuropathy Chronic labile Review of Systems - Review of Systems All systems: reviewed and no additional remarkable complaints except Past Patient History - Infectious Disease Hx of Infectious Diseases: None - Tetanus Immunizations Tetanus Immunization: Unknown - Past Medical History & Family History Past Medical History?: Yes - Past Social History Smoking Status: Former Smoker - CARDIAC Hx Cardiac Disorders: Yes (CAD) Hx Congestive Heart Failure: Yes Hx Hypercholesterolemia: Yes Hx Hypertension: Yes - PULMONARY Hx Chronic Obstructive Pulmonary Disease (COPD): Yes - NEUROLOGICAL HX Cerebrovascular Accident: Yes (2018) - HEENT Hx HEENT Problems: Yes (BLURRY VISION BOTH EYES.) Hx Cataracts: Yes (Bilateral Cataract surgery) Hx Deafness: Yes (L ear sx, piece of metal) Hx Glaucoma: Yes Other/Comment: LASER SURGERY FOR GLAUCOMA. SURGERY FOR TRAUMA TO LEFT EAR, work related, was working and metal flew into eardrum, hearing impaired left ear - RENAL Hx Chronic Kidney Disease: No - ENDOCRINE/METABOLIC Hx Diabetes Mellitus Type 1: Yes Hx Diabetes Mellitus Type 2: Yes - HEMATOLOGICAL/ONCOLOGICAL Hx Blood Disorders: No - INTEGUMENTARY Hx Dermatological Problems: Yes Other/Comment: lle scaley dry skin dry scabs +1 edema, dry thick toenails both feet, rle +1 edema multiple skin discolorations, +2 pitting edema both feet - MUSCULOSKELETAL/RHEUMATOLOGICAL Hx Arthritis: Yes (r knee pain) - GASTROINTESTINAL Hx Gastrointestinal Disorders: Yes (upper gi bleed, obese) Other/Comment: HX: 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 - GENITOURINARY/GYNECOLOGICAL Hx Genitourinary Disorders: Yes Hx Prostate Problems: Yes (BPH) Other/Comment: Takes Flomax - PSYCHIATRIC Hx Psychophysiologic Disorder: Yes Hx Anxiety: Yes Hx Depression: Yes Hx Substance Use: No - SURGICAL HISTORY Hx Surgeries: Yes Hx Cardiac Catheterization: Yes Hx Coronary Stent: Yes (6) Hx Musculoskeletal Surgery: Yes Hx Open Heart Surgery: Yes Hx Orthopedic Surgery: Yes (RIGHT KNEE TO LOWER LEG WITH PENNY PLACED AFTER FX.) Other/Comment: pt fell about 6 yrs ago orif right knee to lower leg with penny at [facility] - ANESTHESIA Hx Anesthesia: Yes Hx Anesthesia Reactions: No Hx Malignant Hyperthermia: No Meds Allergies/Adverse Reactions: Allergies Allergy/AdvReac Type Severity Reaction Status Date / Time No Known Allergies Allergy Verified 03/22/19 19:29 - Medications Medications: Current Medications Atorvastatin Calcium (Lipitor) 80 mg PO DIN [facility] Last Admin: 03/23/19 17:13 Dose: 80 mg Gabapentin (Neurontin) 300 mg PO TID [facility]; Protocol Last Admin: 03/23/19 17:14 Dose: 300 mg Insulin Human Lispro (Humalog Med) 0 units SC ACHS [facility]; Protocol Last Admin: 03/23/19 17:13 Dose: 1 units Isosorbide Mononitrate (Imdur) 120 mg PO DAILY [facility] Last Admin: 03/23/19 10:55 Dose: 120 mg Lisinopril (Zestril) 5 mg PO DAILY [facility] Last Admin: 03/23/19 10:53 Dose: 5 mg Home Med ( Dutasteride [Avodart ] 0.5 Mg) 0.5 mg PO DAILY [facility] Last Admin: 03/23/19 11:02 Dose: Not Given Home Med (Ranolazine ([Ranexa] 1,000 Mg)) 1,000 mg PO BID [facility] Last Admin: 03/23/19 11:02 Dose: Not Given Potassium Chloride (Klor-Con 10) 10 meq PO BRKDIN [facility] Last Admin: 03/23/19 17:14 Dose: 10 meq Physical Exam - Constitutional Appears: No Acute Distress (Obese) - Head Exam Head Exam: ATRAUMATIC, NORMAL INSPECTION, NORMOCEPHALIC - Eye Exam Eye Exam: EOMI, Normal appearance. absent: Scleral icterus - ENT Exam ENT Exam: Mucous Membranes Moist, Normal Oropharynx - Neck Exam Neck exam: Positive for: Full Rom, Normal Inspection. Negative for: Tenderness - Respiratory Exam Respiratory Exam: Decreased Breath Sounds (distant breath sounds), NORMAL BREATHING PATTERN. absent: Rales, Rhonchi, Wheezes - Cardiovascular Exam Cardiovascular Exam: REGULAR RHYTHM, +S1, +S2. absent: Systolic Murmur - GI/Abdominal Exam GI & Abdominal Exam: Normal Bowel Sounds, Soft. absent: Tenderness - Extremities Exam Extremities exam: Positive for: tenderness (due to neuropathy), pedal pulses present. Negative for: calf tenderness, normal inspection (venous stasis changes, trace edema) - Neurological Exam Neurological exam: Alert, Oriented x3 - Psychiatric Exam Psychiatric exam: Normal Affect, Normal Mood - Skin Skin Exam: Normal Color, Warm Results - Vital Signs Recent Vital Signs: Last Vital Signs Temp 98.1 F 03/23/19 17:23 Pulse 71 03/23/19 17:23 Resp 20 03/23/19 17:23 BP 109/53 L 03/23/19 17:23 Pulse Ox 97 03/23/19 05:37 - Labs Result Diagrams: 03/22/19 14:50 03/23/19 04:45 Labs: Laboratory Results - last 24 hr 03/22/19 03/22/19 03/22/19 19:48 21:17 23:16 pO2 34 VBG pH 7.36 VBG pCO2 56.0 VBG HCO3 31.6 H VBG Total CO2 33.3 H VBG O2 Sat (Calc) 64.0 VBG Base Excess 4.6 H VBG Potassium 4.2 Sodium 135.0 Chloride 99.0 Glucose 104 Lactate 2.2 H FiO2 21.0 Potassium Carbon Dioxide Anion Gap BUN Creatinine Est GFR ( Amer) Est GFR (Non-Af Amer) POC Glucose (mg/dL) 142 H Random Glucose Calcium Total Bilirubin AST ALT Alkaline Phosphatase Troponin I < 0.01 Total Protein Albumin Globulin Albumin/Globulin Ratio Venous Blood Potassium 4.2 Urine Color Urine Appearance Urine pH Ur Specific [place] Urine Protein Urine Glucose (UA) Urine Ketones Urine Blood Urine Nitrate Urine Bilirubin Urine Urobilinogen Ur Leukocyte Esterase Urine RBC Urine WBC Ur Epithelial Cells Amorphous Sediment Urine Bacteria Hyaline Casts Fine Granular Casts 03/23/19 03/23/19 03/23/19 04:45 04:45 05:10 pO2 71 H VBG pH 7.36 VBG pCO2 54.0 VBG HCO3 30.5 H VBG Total CO2 32.2 H VBG O2 Sat (Calc) 94.7 H VBG Base Excess 3.7 H VBG Potassium 3.9 Sodium 135.0 137 Chloride 99.0 99 Glucose 96 Lactate 1.1 FiO2 21.0 Potassium 4.0 Carbon Dioxide 28 Anion Gap 14 BUN 33 H Creatinine 1.5 Est GFR ( Amer) 56 Est GFR (Non-Af Amer) 47 POC Glucose (mg/dL) Random Glucose 102 Calcium 8.8 Total Bilirubin 0.5 AST 21 ALT 19 Alkaline Phosphatase 70 Troponin I < 0.01 Total Protein 7.4 Albumin 3.9 Globulin 3.4 Albumin/Globulin Ratio 1.2 Venous Blood Potassium 3.9 Urine Color Yellow Urine Appearance Clear Urine pH 5.5 Ur Specific [place] 1.025 Urine Protein Trace H Urine Glucose (UA) Negative Urine Ketones Negative Urine Blood Negative Urine Nitrate Negative Urine Bilirubin Negative Urine Urobilinogen 0.2 Ur Leukocyte Esterase Negative Urine RBC 0 - 2 Urine WBC 0 - 2 Ur Epithelial Cells 1 - 3 Amorphous Sediment Few Urine Bacteria Few Hyaline Casts 0 - 2 Fine Granular Casts 0 - 2 03/23/19 03/23/19 07:27 12:00 pO2 VBG pH VBG pCO2 VBG HCO3 VBG Total CO2 VBG O2 Sat (Calc) VBG Base Excess VBG Potassium Sodium Chloride Glucose Lactate FiO2 Potassium Carbon Dioxide Anion Gap BUN Creatinine Est GFR ( Amer) Est GFR (Non-Af Amer) POC Glucose (mg/dL) 111 H 229 H Random Glucose Calcium Total Bilirubin AST ALT Alkaline Phosphatase Troponin I Total Protein Albumin Globulin Albumin/Globulin Ratio Venous Blood Potassium Urine Color Urine Appearance Urine pH Ur Specific [place] Urine Protein Urine Glucose (UA) Urine Ketones Urine Blood Urine Nitrate Urine Bilirubin Urine Urobilinogen Ur Leukocyte Esterase Urine RBC Urine WBC Ur Epithelial Cells Amorphous Sediment Urine Bacteria Hyaline Casts Fine Granular Casts - EKG Data EKG Interpreted by: Other (old inferior infarct) EKG shows normal: Sinus rhythm - Imaging and Cardiology Chest x-ray Status: Image reviewed by me (mild congestion) Assessment & Plan - Assessment and Plan (Free Text) Assessment: Chronic stable angina Severe 3 vessel CAD Diastolic dysfunction with elevated filling pressures * AL ruled out, EKG no ischemic changes, labs reviewed. > last cath 02/20/19: BOLANOS-LAD patent, SVG and [place] RCA 100% occluded, LCX anil or stent: diffuse disease small caliber --> Presenting sx's are not c/w angina, possibly effect of his comorbidities, neuropathy, autonomic dysfunction and diuretics -> BICARB is 28 and K+ and creat stable: -> I suggest reduce lasix to 40 BID -> cont DAPT, lipitor 80, Ranexa 1000 BID and IMDUR 120 for now: if sx's are persistent: we can consider reduce dose of IMDUR and Ranexa as outpatient -> encourage compression stocking use, low salt diet and reduce dluid intake to <2L per day PATIENT advised to f/u with Dr. araujo on Tuesday at 9:30 COPD: cont supportive meds Neuropathy: Cont gabapentin d/c planning
[2019-03-23 18:45] VITALS: PULSE 74
--- NOTE | 2019-03-24 01:04 | DS ---
HISTORY OF PRESENT ILLNESS: The patient is a 68-year-old, seen and examined, sitting in chair, and seems to be comfortable. No more dizziness. No headache. No chest pain. No shortness of breath. The patient states that he was recently his medication was adjusted. His Lasix was , so probably because of that he had mild renal insufficiency. He was given IV fluids, seems to be doing well. He states his dizziness and weakness is almost gone. PHYSICAL EXAMINATION: VITAL SIGNS: He is afebrile, pulse 83, respirations 20, and blood pressure 136/75. LUNGS: Bilateral fair airflow. No rhonchi or crackle. HEART: S1 and S2 audible. ABDOMEN: Soft, obese, and nontender. No rebound. No guarding. NEUROLOGIC: The patient is awake, alert, and able to communicate. EXTREMITIES: Bilateral legs, no edema. LABORATORY DATA: Sodium 137, potassium 4, chloride 99, CO2 of 28, BUN 33, creatinine 1.5, and blood sugar 229. CT scan of the head is negative. X-ray of the chest shows no active disease. ASSESSMENT: 1. Dizziness, probably secondary to dehydration since his diuretics was recently increased. 2. Coronary artery disease, status post open heart surgery in 1998. 3. Status post multiple cardiac catheterizations. 4. Pulmonary hypertension, on Ranexa. 5. Congestive heart failure. 6. Benign prostatic hyperplasia. 7. Active smoker. PLAN: The patient is being discharged home today. He is advised to stay on Lasix 40 twice a day and he is advised to follow with the middle school guidance counselor who can readjust the medications, so he was advised to take Lasix 40 mg twice a day and 80 twice a day. He will follow up with middle school guidance counselor as outpatient. He will resume all other his medications. Beto Dick MD
== END 2019-03-23 19:30 | disposition home or self-care (01) ==
LOC: ED 13:26 → ERH 16:30 → 2RNO 19:09
PROVIDERS: ADMIT Internal Medicine; ATTEND Internal Medicine
DX: R42 Dizziness and giddiness (principal); I25.118 Atherosclerotic heart disease of native coronary artery with other forms of angina pectoris; I11.0 Hypertensive heart disease with heart failure; I50.9 Heart failure, unspecified; I27.20 Pulmonary hypertension, unspecified; J44.9 Chronic obstructive pulmonary disease, unspecified; E11.43 Type 2 diabetes mellitus with diabetic autonomic (poly)neuropathy; N40.0 Benign prostatic hyperplasia without lower urinary tract symptoms; F17.200 Nicotine dependence, unspecified, uncomplicated; E66.01 Morbid (severe) obesity due to excess calories; Z68.39 Body mass index [BMI] 39.0-39.9, adult; I25.2 Old myocardial infarction; E78.00 Pure hypercholesterolemia, unspecified; E78.5 Hyperlipidemia, unspecified; H91.8X2 Other specified hearing loss, left ear; Z95.1 Presence of aortocoronary bypass graft; Z95.5 Presence of coronary angioplasty implant and graft; Z86.73 Personal history of transient ischemic attack (TIA), and cerebral infarction without residual deficits
CPT/HCPCS: 36415; 70450; 71045; 80053; 81001; 82550; 82803; 82948; 83615; 83690; 83880; 84484; 85025; 85610; 85730; 93005; 97162; 97530; 99285; G0378; G8978; G8979; J7040